=== PATIENT | male | born 1995 | race Caucasian/White ===

== ENCOUNTER 2022-05-16 14:17 | Emergency (ER) | payer OTHER, SELFPAY ==
[2022-05-16 14:23] VITALS: BP 130/85; PULSE 93; RESP 18; TEMP 36.7; O2SAT 97; BMI 43.0
--- NOTE | 2022-05-16 14:42 | ED.WOUNDLAC ---
HPI - Wound/Laceration General Chief Complaint: Wound/Laceration Stated Complaint: Infected middle finger Time Seen by Provider: 05/16/22 14:42 Source: patient Mode of arrival: ambulatory Limitations: no limitations History of Present Illness HPI narrative: Patient is a 26 year old male presenting to the emergency department today with left middle finger swelling. Patient states that yesterday, he pulled off a hang nail with his teeth and now, his left middle finger has swollen significantly. Patient denies any dizziness, lightheadedness, abdominal pain, nausea, vomiting, fever, chills, blurry vision, double vision, loss of vision, chest pain, difficulty breathing, shortness of breath, back pain, night sweats, pain with urination, increased urinary frequency, increased urinary urgency, blood in his urine or stool, syncope or a near syncopal episode, recent trauma or falls, bowel incontinence, bladder incontinence, bowel retention, bladder retention, or any other complaints at this time. Onset (ago): day(s) (1) Place: home Associated symptoms: none Related Data Previous Rx's Medication Instructions Recorded cephalexin 500 mg capsule 500 mg PO Q6H 7 days #28 caps 05/16/22 Allergies Allergy/AdvReac Type Severity Reaction Status Date / Time No Known Allergies Allergy Verified 05/16/22 14:22 [No Known Allergies*] Review of Systems Constitutional: Constitutional: Reports no additional constitutional complaints, Denies chills, Denies fever(s) and Denies night sweats Eyes: Eyes: Reports no additional eye complaints, Denies blurry vision, Denies change in vision, Denies diplopia, Denies eye discharge, Denies loss of vision and Denies eye pain ENT: Denies dizziness Cardiovascular: Cardiovascular: Reports no additional cardiovascular complaints, Denies chest pain, Denies lightheadedness, Denies Loss of Consciousness and Denies dyspnea Respiratory: Respiratory: Reports no additional respiratory complaints and Denies dyspnea Gastrointestinal: Gastrointestinal: Reports no additional gastrointestinal complaints, Denies abdominal pain, Denies melena, Denies hematochezia, Denies change in bowel habits and Denies change in stool character Genitourinary: Genitourinary: Reports no additional male genitourinary complaints, Denies hematuria, Denies oliguria, Denies difficulty urinating, Denies dysuria, Denies urinary frequency, Denies urinary hesitancy, Denies urinary incontinence and Denies urinary urgency Musculoskeletal: Musculoskeletal: Reports no additional musculoskeletal complaints, Denies numbness and Denies tingling Comments: left middle finger swelling Neurologic: Denies dizziness, Denies loss of vision, Denies numbness and Denies tingling Psychiatric: Psychiatric: Reports no additional psychiatric complaints Endocrine: Endocrine: Reports no additional endocrine complaints Hematologic/Lymphatic: Hematologic/Lymphatic: Reports no additional hematologic/lymphatic complaints Allergic/Immunologic: Allergic/Immunologic: Reports no additional allergic/immunologic complaints PMFSH Past Medical History Attestation statement: The following information was validated with the patient. Source: old records reviewed Social History Social History Advance Directives: No Advance Directives Information Provided: No Physical Exam Vital Signs: Vital Signs: Last Vital Signs Temp 98.1 F 05/16/22 14:23 Pulse 93 05/16/22 14:23 Resp 18 05/16/22 14:23 BP 130/85 05/16/22 14:23 Pulse Ox 97 05/16/22 14:23 O2 Del Method 05/16/22 14:23 BMI result Body Mass Index 43.0 Const: General: cooperative, no acute distress, alert and awake Nutritional Appearance: well nourished Orientation/consciousness: patient oriented x3 Limitations: no limitations HEENT: Head: Yes normal to inspection and Yes atraumatic Ears: hearing grossly normal bilaterally and external ears normal General nose exam: Normal external nose present, no nasal discharge noted and no epistaxis Face and sinus: Yes normal facial exam, No abrasion and No laceration Mouth: Normal oral and palatal mucosa present, no drooling and no muffled voice Eyes: General: appearance normal, both eyes and all related structures Periorbital: periorbital findings normal Eyelids: Yes eyelids normal Conjunctivae: conjunctivae normal Pupils: Equal, round and reactive pupils present EOM: EOMs intact bilaterally Neck: Neck: Yes normal visual inspection, Yes full ROM and Yes no lymphadenopathy Chest: Chest palpation & inspection: normal inspection of the chest Resp: Effort & Inspection: normal respiratory effort and able to speak in complete sentences Auscultation: clear to auscultation bilaterally Cardio: Rate: regular rate Rhythm: regular rhythm GI: Inspection: Yes normal to inspection Neuro: General: patient oriented x3 and moves all extremities Cranial nerves: Yes Equal, round and reactive pupils present Cognition (Neuro): normal cognition Motor exam (neuro): 5/5 motor strength present throughout Sensory Exam: Normal double simultaneous stimulation for sensation Coordination: ilevem-rj-eywy test normal Extrem: Other: left middle finger has minimal swelling to the dorsal aspect just inferior to the nail bed General: Yes full ROM and Yes capillary refill normal Psych: Appearance: grossly normal Mental Status: mental status grossly normal Affect: normal affect Attitude: cooperative Thought process: Normal thought process present Thought content: Normal thought content present Insight: Good insight present (Psych) MDM - Wound/Laceration MDM Narrative Medical decision making narrative: Patient is a 26 year old male presenting to the emergency department today with a paronychia of the left middle finger. Patient's physical exam showed a paronychia to the left middle finger.I explained my physical exam findings to the patient. I answered all questions asked by the patient. Patient's paronychia was drained, per procedure note, without incident. I stressed the importance of the patient taking his medication as prescribed. I stressed the importance of the patient following up with his primary care provider. I stressed the importance of the patient returning to the emergency department immediately if his symptoms were to worsen or if he were to develop any dizziness, shortness of breath, difficulty breathing, chest pain, blurry vision, loss of vision, nausea, vomiting, abdominal pain, fever, chills, back pain, or any other complaints. Patient verbalized agreement and understanding with this treatment plan and discharge. Differential Diagnosis Differential diagnosis: Likely abscess Medical Records Attestation: I reviewed the patient's medical records. Procedures Abscess I/D Site: other (middle finger) Side (if applicable): left Sedation/analgesia: none Local Anesthetic: lidocaine 1% Amount of anesthesia used (mL): 2 Technique: incised with blade Amount of fluid expressed (mL): 5 Sent for culture/gram staining?: No Irrigation: No Packing used?: none Discharge Plan Discharge Clinical Impression: Paronychia of finger Patient Disposition: Home, Self-Care Instructions: Paronychia (ED) Additional Instructions: Follow up with your primary care provider. Return to the emergency department immediately if your symptoms worsen or if you develop any dizziness, shortness of breath, difficulty breathing, chest pain, blurry vision, loss of vision, nausea, vomiting, abdominal pain, fever, chills, back pain, or any other complaints. Prescriptions: New cephalexin 500 mg capsule 500 mg PO Q6H 7 Days Qty: 28 0RF [place]: [facility] [facility] [place] (Call to establish and follow up with a primary care provider. If you already have a primary care provider, please call their office. ) [facility] [place] [facility] [place]Provider Group] (Call to establish and follow up with a primary care provider. If you already have a primary care provider, please call their office. ) [facility] [place] [facility] [place]] (Call to establish and follow up with a primary care provider. If you already have a primary care provider, please call their office. ) Stand Alone Forms: Work/School Release Interventions: ED Discharge Assessment Last Done: 05/16/22 15:29 Discharge Date/Time: 05/16/22 15:31 Print Language: Luxembourgish
[2022-05-16] MEDS: Lidocaine HCl 1 % MPF 5 ML VIAL SUBCUT (15:11)
== END 2022-05-16 15:31 | disposition home or self-care (01) ==
PROVIDERS: Emergency Provider Student in an Organized Health Care Education/Training Program
DX: L02.512 Cutaneous abscess of left hand (principal)
CPT/HCPCS: 10060; 99283

== ENCOUNTER 2024-11-01 23:00 | Emergency (ER) | payer MEDICAID, SELFPAY ==
--- NOTE | ~2024-11-01 | XR_ITS ---
CLINICAL HISTORY: sob cp 1 view chest x-ray. Comparison: 02/22/2018 Findings: Moderate-size left pleural effusion noted. Left basilar consolidation and/or atelectasis. Right lung clear. Heart obscured. No bony abnormality. Impression: Left pleural effusion with basilar consolidation and/or atelectasis This document has been electronically signed by: Bryn Ty MD on 11/01/2024 23:59:16
--- NOTE | ~2024-11-01 | CT_ITS ---
CLINICAL HISTORY: infection pleural effusion CT chest with contrast Comparison: None Findings: Moderate size loculated pleural effusion with large anteriorly loculated component. Consolidation in the adjacent lung involving the left upper and lower lobes. There is some patchy airspace disease in the right lung with multifocal right middle lobe bronchiectasis. Heart size normal. No pericardial effusion. No acute finding in the partially visualized upper abdomen. No acute fracture or suspicious bone lesion. IMPRESSION: 1. Left upper and left lower lobe pneumonia with adjacent loculated pleural effusion. No pleural enhancement to suggest empyema. This document has been electronically signed by: Dameon Rosado MD on 11/02/2024 01:42:16
[2024-11-01 23:04] VITALS: BP 154/99; PULSE 100; RESP 18; TEMP 36.7; O2SAT 95; BMI 42.1
--- NOTE | 2024-11-01 23:11 | ECG_ITS ---
Test Reason : SOB Blood Pressure : */* mmHG Vent. Rate : 105 BPM Atrial Rate : 105 BPM P-R Int : 150 ms QRS Dur : 90 ms QT Int : 370 ms P-R-T Axes : 52 39 28 degrees QTcB Int : 489 ms Sinus tachycardia Otherwise normal ECG No previous ECGs available Referred By: Generic ED Physician Electronically Signed By: JORGE WOLFF MD
[2024-11-01 23:42] LABS: Basophils Absolute Auto 0.1 X10*3/uL (0.0-0.2); Basophils Percent Auto 0.7 % (0-2); Eosinophils Absolute Auto 0.9 X10*3/uL (0.0-0.4); Hematocrit 38.4 % (42.0-52.0); Hemoglobin 12.6 g/dl (14.0-18.0); Imm Gran Abs Auto 0.05 X10*3/uL (0.00-0.03); Imm Gran Pct Auto 0.4 % (0.0-0.4); Lymphocytes Absolute Auto 1.6 X10*3/uL (1.2-4.9); Lymphocytes Percent Auto 11.6 % (20-40); MANUAL DIFF FLAG NO; Mean Corpuscular HGB Conc 32.8 g/dl (31.0-36.0); Mean Corpuscular Hemoglobin 27.5 pg (27.0-33.0); Mean Corpuscular Volume 83.8 fL (80.0-98.0); Mean Platelet Volume 9.1 fL (9.4-12.4); Monocytes Absolute Auto 0.8 X10*3/uL (0.1-1.2); Neutrophils Percent Auto 74.3 % (45-73); Platelet Count 415 X10*3/uL (160-400); Red Blood Count 4.58 X10*6/uL (4.60-5.80); Red Cell Distribution Width 13.3 % (11.0-16.0); White Blood Count 13.5 X10*3/uL (4.8-10.8)
[2024-11-02 00:01] LABS: Alanine Aminotransferase 20 U/L (0-40); Albumin Level 3.5 g/dL (3.5-5.0); Alkaline Phosphatase 81 U/L (39-117); Anion Gap 10 (12-20); Aspartate Amino Transferase 19 U/L (5-37); Bilirubin Total 0.2 mg/dL (0.0-1.0); Blood Urea Nitrogen 7 mg/dL (9-16); Calcium 8.2 mg/dL (8.4-10.2); Carbon Dioxide 24 mmol/L (22-29); Chloride 108 mmol/L (96-108); Creatinine Clr Calc Pharmacy 239.1; Estimated Glomerular Filt Rate > 60; Glucose Random 107 mg/dL (60-115); Sodium 138 mmol/L (135-145); Total Protein 8.1 g/dL (6.5-8.0)
[2024-11-02 00:04] LABS: Troponin-I High Sensitivity 4.4 ng/L (<3.5-35.0)
[2024-11-02] MEDS: Albuterol Sulfate 2.5 MG, Albuterol/Iprat 2.5/0.5MG 3 ML 3 ML INHALE (00:08)
[2024-11-02 00:19] LABS: Influenza A PCR NEGATIVE (Negative); Influenza B PCR NEGATIVE (Negative); Resp Syncy Virus RNA Qual PCR NEGATIVE (Negative); SARS COV2 PCR INHOUSE POSITIVE (Negative)
[2024-11-02 00:26] VITALS: PULSE 106
[2024-11-02] MEDS: predniSONE 20 MG TABLET 40 MG PO (00:38)
[2024-11-02] MEDS: iohexoL 350 MG/ML 100 ML INFUS..BTL 85 ML IV (01:28)
[2024-11-02 02:25] VITALS: BP 136/85; PULSE 98; RESP 16; TEMP 36.9; O2SAT 97
--- NOTE | 2024-11-02 02:36 | ED_ITS ---
HPI - General Adult General Chief complaint: Upper Respiratory Symptoms Stated complaint: Trouble breathing x3 days, Asthmatic Time Seen by Provider: 11/01/24 23:55 Source: patient Limitations: no limitations History of Present Illness ED Provider: Cony Raphael PA-C HPI narrative: 29-year-old male with a history of asthma presents with cough and cold symptoms x3 days. Patient states his cough is nonproductive, he has been using his home inhaler and nebulizer without relief of symptoms. Denies sick contacts with same symptoms, denies fever, no GI symptoms. Related Data Previous Rx's ?Medication ?Instructions ?Recorded cephalexin 500 mg capsule 500 mg PO Q6H 7 days #28 caps 05/16/22 albuterol sulfate 2.5 mg/3 mL 2.5 mg (3 mL) inhalation Q4-6H PRN 11/02/24 (0.083 %) solution for nebulization shortness of breath or wheezing #75 mL amoxicillin 875 mg-potassium 1 tab PO BID #20 tabs 11/02/24 clavulanate 125 mg tablet azithromycin 250 mg tablet 250 mg PO DAILY 4 days #4 tabs 11/02/24 prednisone 20 mg tablet 40 mg (2 x 20 mg) PO DAILY #8 tabs 11/02/24 Allergies Allergy/AdvReac Type Severity Reaction Status Date / Time No Known Allergies Allergy Verified 11/01/24 23:08 [No Known Allergies*] Review of Systems 2 Review of Systems: Yes all other systems are reviewed and are negative Constitutional: Constitutional: Denies fatigue and Denies fever(s) Cardiovascular: Cardiovascular: Denies chest pain and Reports dyspnea Respiratory: Respiratory: Reports cough, Reports dyspnea and Reports wheezing Gastrointestinal: Gastrointestinal: Denies diarrhea, Denies nausea and Denies vomiting Endocrine: Endocrine: Denies fatigue Allergic/Immunologic: Allergic/Immunologic: Reports wheezing PMFSH Past Medical History Attestation statement: The following information was validated with the patient. Social History Social History Alcohol intake: current Alcohol intake frequency: 3 or more drinks per day Alcohol type: beer, wine and hard liquor Smoked in Last 30 Days: Yes Use of substances other than those prescribed or required for medical reasons: Yes Substance Use Type: Marijuana Advance Directives: No Advance Directives Information Provided: Yes Do you have a plan to hurt others: No Plan Physical Exam ED Vital Signs: Vital Signs - 24 hr 11/01/24 23:04 11/02/24 02:25 11/02/24 03:47 Temperature 98.0 F 98.4 F 98.2 F Pulse Rate 100 98 97 Respiratory Rate 18 16 16 Blood Pressure 154/99 H 136/85 154/100 H Pulse Oximetry 95 97 94 Oxygen Delivery Method Room Air Room Air Room Air BMI result Body Mass Index 42.1 Const Other: Alert, well-appearing Orientation/consciousness: patient oriented x3 Resp Other: Slightly tachypneic, diminished in posterior kil[place]ore Skin Other: Warm dry no rash Neuro General: patient oriented x3, no focal motor deficits and CN's II-XI intact bilaterally Psych Other: Calm cooperative Course Reevaluation(s) Reevaluation #1: I discussed all the findings with the patient, that he has tested positive for SARS, he has a viral pneumonia and a bacterial pneumonia that is very extensive within the left lobe. I strongly suggested that he be admitted to the hospital. 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 He states he needs to get his affairs in order this morning and then he will return to the emergency department for admission. We will give the patient his 1st dose of antibiotics here in the ER, we will send prescriptions to his pharmacy in the event that he does not return. Time: 02:44 Medications Administered Discontinued Medications Generic Name Dose Route Start Last Admin Trade Name Pernell PRN Reason Stop Dose Admin Azithromycin 500 mg 11/02/24 02:44 11/02/24 03:17 Azithromycin 500 Mg Tablet PO 11/02/24 02:45 500 mg ONCE ONE Administration Ceftriaxone Sodium 2 gm 11/02/24 02:44 11/02/24 03:16 Ceftriaxone Sodium 2 Gm Vial IVPUSH 11/02/24 02:45 2 gm ONCE ONE Administration Albuterol Sulfate 2.5 mg/ 0 mg 11/02/24 00:01 11/02/24 00:08 Albuterol/Ipratropium 3 ml INHALE 11/02/24 00:02 1 dose ONCE ONE Administration Iohexol 85 ml 11/02/24 01:28 11/02/24 01:28 Iohexol 350 Mg/Ml 100 Ml Infus..Btl IV 11/02/24 01:29 85 ml ONCE ONE Administration Prednisone 40 mg 11/01/24 23:57 11/02/24 00:38 Prednisone 20 Mg Tablet PO 11/01/24 23:58 40 mg ONCE ONE Administration Medical Decision Making Medical Decision Making [facility] Narrative: 29-year-old male with a history of asthma presents with cough and cold symptoms x3 days. Patient states his cough is nonproductive, he has been using his home inhaler and nebulizer without relief of symptoms. Denies sick contacts with same symptoms, denies fever, no GI symptoms. Problem: Asthma History: Per patient I have considered the following differential diagnoses: Asthma exacerbation, viral syndrome, pneumonia, bronchitis Plan: Patient here with a asthma exacerbation likely secondary to viral syndrome. We will be screening basic labs, viral panel and a chest x-ray. Giving an updraft and steroid. I have independently reviewed the following tests: Labs: Leukocytosis with left shift, not anemic, no electrolyte abnormality, SARs positive CXR: Moderate-size left pleural effusion noted. Left basilar consolidation and/or atelectasis. Right lung clear. Heart obscured. No bony abnormality. Impression: Left pleural effusion with basilar consolidation and/or atelectasis This document has been electronically signed by: Bryn Ty MD on 11/01/2024 23:59:16 CT chest: Findings: Moderate size loculated pleural effusion with large anteriorly loculated component. Consolidation in the adjacent lung involving the left upper and lower lobes. There is some patchy airspace disease in the right lung with multifocal right middle lobe bronchiectasis. Heart size normal. No pericardial effusion. No acute finding in the partially visualized upper abdomen. No acute fracture or suspicious bone lesion. IMPRESSION: 1. Left upper and left lower lobe pneumonia with adjacent loculated pleural effusion. No pleural enhancement to suggest empyema. This document has been electronically signed by: Dameon Rosado MD on 11/02/2024 01:42:16 Lab Data 11/01/24 23:28 11/01/24 23:28 Labs: Lab Results 11/01/24 11/02/24 Range/Units 23:28 03:00 WBC 13.5 H (4.8-10.8) X10*3/uL RBC 4.58 L (4.60-5.80) X10*6/uL Hgb 12.6 L (14.0-18.0) g/dl Hct 38.4 L (42.0-52.0) % MCV 83.8 (80.0-98.0) fL MCH 27.5 (27.0-33.0) pg MCHC 32.8 (31.0-36.0) g/dl RDW 13.3 (11.0-16.0) % Plt Count 415 H (160-400) X10*3/uL MPV 9.1 L (9.4-12.4) fL Immature Gran % (Auto) 0.4 (0.0-0.4) % Neut % (Auto) 74.3 H (45-73) % Lymph % (Auto) 11.6 L (20-40) % [place] % (Auto) 6.0 (2-11) % Eos % (Auto) 7.0 H (0-4) % Baso % (Auto) 0.7 (0-2) % Lymph # (Auto) 1.6 (1.2-4.9) X10*3/uL [place] # (Auto) 0.8 (0.1-1.2) X10*3/uL Eos # (Auto) 0.9 H (0.0-0.4) X10*3/uL Baso # (Auto) 0.1 (0.0-0.2) X10*3/uL Abs Immat Gran (auto) 0.05 H (0.00-0.03) X10*3/uL Absolute Neuts (auto) 10.0 H (2.0-8.3) x10*3/uL Absolute Nucleated RBC 0.000 (0.0-0.012) X10*3/uL Nucleated RBC % (auto) 0.0 (0.0-0.2) /100WBC Sodium 138 (135-145) mmol/L Potassium 4.0 (3.3-5.1) mmol/L Chloride 108 (96-108) mmol/L Carbon Dioxide 24 (22-29) mmol/L Anion Gap 10 L (12-20) BUN 7 L (9-16) mg/dL Creatinine 0.62 (0.5-1.4) mg/dL Estim Creat Clear Calc 239.1 Estimated GFR > 60 Random Glucose 107 (60-115) mg/dL Lactic Acid 1.3 (0.5-2.0) mmol/L Calcium 8.2 L (8.4-10.2) mg/dL Total Bilirubin 0.2 (0.0-1.0) mg/dL AST 19 (5-37) U/L ALT 20 (0-40) U/L Alkaline Phosphatase 81 (39-117) U/L Troponin I High Sens 4.4 (<3.5-35.0) ng/L Total Protein 8.1 H (6.5-8.0) g/dL Albumin 3.5 (3.5-5.0) g/dL Influenza Type A (PCR) NEGATIVE (Negative) Influenza Type B (PCR) NEGATIVE (Negative) RSV RNA Qual (PCR) NEGATIVE (Negative) SARS-CoV-2 RNA (RT-PCR) POSITIVE A (Negative) Discharge Plan Discharge Clinical Impression: Pneumonia, Asthma exacerbation Patient Disposition: Home, Self-Care Instructions: Asthma (ED), Community Acquired Pneumonia (ED) Additional Instructions: It was highly recommended that you stay for hospital admission. Please return today once your personal affairs are in order. You are being treated for an asthma exacerbation with a viral pneumonia and a concurrent bacterial pneumonia. We will see you back in the emergency department later today. Take the Augmentin as directed. Take the azithromycin as directed. Take the prednisone as directed. Use the albuterol with your nebulizer as directed. Prescriptions: New amoxicillin-pot clavulanate 875-125 mg tablet 1 tab PO BID Qty: 20 0RF azithromycin 250 mg tablet 250 mg PO DAILY 4 Days Qty: 4 0RF Rx Instructions: start on day 2 of therapy prednisone 20 mg tablet 40 mg PO DAILY Qty: 8 0RF albuterol sulfate 2.5 mg /3 mL (0.083 %) solution for nebulization 2.5 mg inhalation Q4-6H PRN (Reason: shortness of breath or wheezing) Qty: 75 0RF No Action cephalexin 500 mg capsule 500 mg PO Q6H 7 Days Qty: 28 0RF Interventions: ED Discharge Assessment Last Done: 11/02/24 03:47 Discharge Date/Time: 11/02/24 03:54 Print Language: Georgian
[2024-11-02] MEDS: cefTRIAXone sodium 2 GM VIAL IVPUSH (03:16)
[2024-11-02] MEDS: Azithromycin 500 MG TABLET PO (03:17)
[2024-11-02 03:25] LABS: Lactic Acid 1.3 mmol/L (0.5-2.0)
[2024-11-02 03:47] VITALS: BP 154/100; PULSE 97; RESP 16; TEMP 36.8; O2SAT 94
== END 2024-11-02 03:54 | disposition home or self-care (01) ==
PROVIDERS: Physician Assistant Medical; Emergency Provider Emergency Medicine Emergency Medical Services
DX: U07.1 COVID-19 (principal); J45.909 Unspecified asthma, uncomplicated
CPT/HCPCS: 0241U; 36415; 71045; 71260; 80053; 83605; 84484; 85025; 87040; 93005; 96374; 99285; J0696; Q9967

== ENCOUNTER → 2024-11-01 23:10 | Outpatient (BNV) | payer OTHER, SELFPAY | PROVIDERS: Emergency Provider Emergency Medicine Emergency Medical Services; Visit Provider Radiology Diagnostic Radiology | DX: J90 Pleural effusion, not elsewhere classified (principal) | CPT/HCPCS: 71045 ==

== ENCOUNTER → 2024-11-01 23:11 | Outpatient (BNV) | payer MEDICAID, SELFPAY | PROVIDERS: Emergency Provider Emergency Medicine Emergency Medical Services; Visit Provider Internal Medicine Cardiovascular Disease | DX: R00.0 Tachycardia, unspecified (principal) | CPT/HCPCS: 93010 ==

== ENCOUNTER → 2024-11-02 00:56 | Outpatient (BNV) | payer OTHER, SELFPAY | PROVIDERS: Emergency Provider Emergency Medicine Emergency Medical Services; Visit Provider Radiology Diagnostic Radiology | DX: J18.1 Lobar pneumonia, unspecified organism (principal); J90 Pleural effusion, not elsewhere classified | CPT/HCPCS: 71260 ==

== ENCOUNTER 2024-11-02 22:59 | Inpatient (IN) | payer MEDICAID, SELFPAY ==
--- NOTE | ~2024-11-02 | XR_ITS ---
EXAMINATION: XR CHEST CLINICAL INFORMATION: f/u chest tube removal COMPARISON: Earlier same day. 11/05/2024. TECHNIQUE: AP portable view of the chest was obtained. FINDINGS: Left basilar pleural catheter has been removed. Small amount of left basilar linear opacity and pleural fluid remains, similar to exam from earlier same day, but smaller than 11/05/2024. Mildly prominent interstitial markings are stable and unchanged. Azygos fissure present. No right effusion. No pneumothorax. Cardiac prominence, unchanged. Mediastinal and hilar contours are stable. No soft tissue or osseous abnormality. XR/XR chest 1V IMPRESSION: 1. Removal of left basilar pleural catheter. Small amount of residual fluid and atelectasis remains. No pneumothorax. 2. Otherwise no interval change. Electronically signed by: Waldo Marrero MD 11/06/2024 02:35 PM [facility]
--- NOTE | ~2024-11-02 | XR_ITS ---
CLINICAL HISTORY: f u left pleural effusion 1 view chest x-ray Comparison: CR/SR - XR CHEST 1V - 11/05/24 13:10 EST Findings: Left basilar pigtail chest tube is again identified. Cardiac silhouette is mildly enlarged. Interstitial markings are diffusely prominent. Left basilar consolidation is improved compared to the patient's prior study. Left pleural effusion is decreased in size. No pneumothorax. IMPRESSION: Improved aeration of the left lung with chest tube in place. This document has been electronically signed by: Nathan Loco MD on 11/06/2024 07:48:44
--- NOTE | ~2024-11-02 | CT_ITS ---
EXAMINATION: CT ANGIOGRAM CHEST CLINICAL INFORMATION: Dyspnea, rule out PE. COMPARISON: CT chest 11/02/2024. Chest x-ray 11/06/2024. TECHNIQUE: Multiple axial images were obtained through the chest after the administration of 50 mL of Omnipaque 350 intravenous contrast. Extensive vascular post-processing including two-dimensional and three-dimensional reformatted images were created and reviewed on an independent workstation. This CT examination was performed using dose optimization techniques as appropriate, variously including the following: *Automated exposure control *Adjustment of mA and/or kV according to patient size (this includes techniques or standardized protocols for targeted exams where dose is matched to indication/reason for exam; i.e. extremities or head) *Use of iterative reconstruction technique FINDINGS: LUNGS: -Trace pneumothorax seen just lateral to the lingula. -Diffuse mosaic attenuation of the l lung parenchyma, nonspecific. -Cystic and varicoid bronchiectasis throughout the right middle lobe, with associated mild bronchial wall thickening. This finding is stable. -Mild bronchiectasis and bronchial wall thickening involving the lingula and bilateral lower lobes. -Azygos lobe present. -Linear atelectasis/segmental consolidation posterior inferior left lower lobe, with evidence of small airway mucous plugging. -Tiny left pleural effusion. No right effusion. -No right-sided pneumothorax. PLEURA: As above. MEDIASTINUM: -Mild cardiac enlargement. No pericardial effusion. No evidence of right heart strain and no contrast reflux into the IVC. -No abnormal mediastinal or hilar lymphadenopathy. -Normal thyroid. -Aorta is normal in caliber and course without acute aortic syndrome. -Main pulmonary artery is normal in size without dilatation. -Negative for pulmonary embolic disease. VASCULAR: As above. AXILLA/CHEST WALL: -No masses or abnormal lymph nodes. UPPER ABDOMEN: -Normal appearance. OSSEOUS STRUCTURES: -No suspicious lytic or blastic bone lesions. -Mild right convex thoracic scoliosis. CT/CT angio chest PE protocol IMPRESSION: 1. Exam negative for pulmonary embolism. No acute aortic syndrome. 2. Segmental consolidation left base, with associated small airway mucous plugging, and a trace left effusion. 3. Trace pneumothorax seen just lateral to the lingula. 4. Mosaic attenuation to the lung parenchyma, worsening from the prior exam, most likely on the basis of underlying air trapping. Differential includes diffuse lung injury, constrictive (obliterative) bronchiolitis, hypersensitivity pneumonitis, as well as less commonly bronchial asthma and vasculitis. 5. Cystic and varicoid bronchiectasis throughout the right middle lobe, unchanged. Mild small airway thickening and bronchiectasis in the lower lobes and lingula. 6. Mild cardiac enlargement. Electronically signed by: Waldo Marrero MD 11/07/2024 10:43 AM [facility]
--- NOTE | ~2024-11-02 | US_ITS ---
PROCEDURE: Ultrasound-guided chest tube placement HISTORY: Left loculated pleural effusion SPECIMEN: A specimen was appropriately labeled and sent to the laboratory as requested ACCESS: 5 fr Yueh needle/catheter MEDICATIONS: 10 mL 1% lidocaine TECHNIQUE/FINDINGS Appropriate preprocedural clinical history and imaging studies were reviewed. The patient was brought to the department and placed in the seated position. Ultrasound images of the left thorax were obtained to localize a large pleural effusion. Permanent ultrasound images were saved. The risks and benefits and possible complications were discussed with the patient and consent form was signed. An area of the patient's left back was prepped and draped in the usual sterile fashion. 10 mL of 1% lidocaine was used to obtain local anesthesia of the skin and deeper tissues. A 5 gauge hypodermic needle was introduced to sample pleural fluid and demonstrate a safe access route. A 5 [place] Island[place] Yueh catheter was then used to access the pleural cavity. A 0.035 guidewire was then placed through the catheter and into the chest. The access site was then dilated. A 10 fr locking catheter was then advanced over the wire and into the chest cavity. The wire was removed and the catheter was secured to the skin with a single suture and a sterile dressing was applied over the site. The catheter was then connected to a close chest drainage system. The patient tolerated the procedure well. There were no immediate complications US/US drain thoracentesis w image Impression: Ultrasound-guided left chest tube placement yielding yellow fluid. This procedures performed by Tyler Jacobo PA-C and supervised by Dr. Damon. Electronically signed by: Cruz Degroot MD 11/08/2024 06:07 PM [facility]
--- NOTE | ~2024-11-02 | XR_ITS ---
EXAMINATION: XR CHEST 1 VIEW HISTORY: s/p left chest tube for loculated pleural effusion COMPARISON: Comparison is made with the prior examination dated 11/01/2024. FINDINGS: A single AP portable view of the chest performed at 1:10 PM is submitted. There is been interval placement of a left-sided chest tube at the lung base. The previously seen pleural effusion is smaller. No pneumothorax. It is difficult to exclude underlying atelectasis or pneumonia at the left lung base. The right lung is clear. There is no right pleural effusion or pulmonary vascular congestion. The heart is normal in size. The bones are intact. XR/XR chest 1V IMPRESSION: Left chest tube in place. Interval decrease in size of the previously seen left pleural effusion. No pneumothorax. Electronically signed by: Loc Silva MD 11/05/2024 01:58 PM [facility]
[2024-11-02 23:25] VITALS: BP 151/75; PULSE 95; RESP 22; TEMP 36.7; O2SAT 95; BMI 42.2
[2024-11-03] VITALS (10 sets, daily range): BP systolic 146–162; BP diastolic 78–108; PULSE 84–118; RESP 17–30; TEMP 36.1–37.7; O2SAT 90–98
--- NOTE | 2024-11-03 01:08 | ED.GENADULT ---
HPI - General Adult General Chief complaint: Upper Respiratory Symptoms Stated complaint: asthma-was here yesterday Time Seen by Provider: 11/03/24 01:09 Source: patient Limitations: no limitations History of Present Illness ED Provider: Cony Raphael PA-C HPI narrative: 29-year-old male with a history of asthma presents with cough and cold symptoms x 4 days. Patient was seen in the emergency department overnight yesterday, he was found to have a viral pneumonia secondary to SARS, a large, left sided bacterial pneumonia and was being treated for concurrent asthma exacerbation. 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 Related Data Previous Rx's ?Medication ?Instructions ?Recorded cephalexin 500 mg capsule 500 mg PO Q6H 7 days #28 caps 05/16/22 albuterol sulfate 2.5 mg/3 mL 2.5 mg (3 mL) inhalation Q4-6H PRN 11/02/24 (0.083 %) solution for nebulization shortness of breath or wheezing #75 mL amoxicillin 875 mg-potassium 1 tab PO BID #20 tabs 11/02/24 clavulanate 125 mg tablet azithromycin 250 mg tablet 250 mg PO DAILY 4 days #4 tabs 11/02/24 prednisone 20 mg tablet 40 mg (2 x 20 mg) PO DAILY #8 tabs 11/02/24 Allergies Allergy/AdvReac Type Severity Reaction Status Date / Time No Known Allergies Allergy Verified 11/02/24 23:29 [No Known Allergies*] Review of Systems Review of Systems: Yes all other systems are reviewed and are negative Constitutional: Constitutional: Reports fatigue and Reports fever(s) Cardiovascular: Cardiovascular: Denies chest pain, Reports dyspnea and Reports dyspnea on exertion Respiratory: Respiratory: Reports cough, Reports dyspnea, Reports dyspnea on exertion and Reports wheezing Gastrointestinal: Gastrointestinal: Denies diarrhea, Denies nausea and Denies vomiting Endocrine: Endocrine: Reports fatigue Allergic/Immunologic: Allergic/Immunologic: Reports wheezing PMFSH Past Medical History Attestation statement: The following information was validated with the patient. Social History Social History Alcohol intake: current Alcohol intake frequency: 3 or more drinks per day Alcohol type: beer, wine and hard liquor Substance Use Type: Marijuana Advance Directives: No Advance Directives Information Provided: Yes Do you have a plan to hurt others: No Plan Physical Exam ED Vital Signs: Vital Signs - 24 hr 11/02/24 23:25 Temperature 98.1 F Pulse Rate 95 Respiratory Rate 22 H Blood Pressure 151/75 H Pulse Oximetry 95 Oxygen Delivery Method Room Air BMI result Body Mass Index 42.2 Const Other: Alert Orientation/consciousness: patient oriented x3 Resp Other: Tachypneic, diminished left posterior kilgore, audible wheezes when ambulating Cardio Other: Normal peripheral perfusion Skin Other: Warm dry no rash Neuro General: patient oriented x3, gait normal, no focal motor deficits and CN's II-XI intact bilaterally Psych Other: Cooperative Course Reevaluation(s) Reevaluation #1: Sepsis considered, the patient was here yesterday blood cultures and a lactic acid were obtained, I am not repeating the blood cultures, that does not make any sense, I am repeating the lactic acid was screening labs. He will be getting ceftriaxone and azithromycin for his already known pneumonia. He is normotensive, he does not require weight based IV fluids, we will be giving 500 mL of fluid. Time: 01:38 Medical Decision Making Medical Decision Making [facility] Narrative: 29-year-old male with a history of asthma presents with cough and cold symptoms x 4 days. Patient was seen in the emergency department overnight yesterday, he was found to have a viral pneumonia secondary to SARS, a large, left sided bacterial pneumonia and was being treated for concurrent asthma exacerbation. 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 Problem: Asthma History: Per patient I have considered the following differential diagnoses: known from yesterday Asthma exacerbation, viral syndrome, pneumonia, Plan: Patient returns for admission, he has a viral pneumonia, a large bacterial pneumonia on the left and is positive for SARS. He dropped his oxygen saturation with ambulation, he became profoundly tachypneic and tachycardic with minimal ambulation. Repeating basic labs and a lactic, we have blood cultures in process from yesterday. Starting antibiotics, Giving an updraft and steroid. I have independently reviewed the following tests: Labs: Leukocytosis with left shift, not anemic, no electrolyte abnormality, SARs positive, todays labs..... from yesterday CXR: Moderate-size left pleural effusion noted. Left basilar consolidation and/or atelectasis. Right lung clear. Heart obscured. No bony abnormality. Impression: Left pleural effusion with basilar consolidation and/or atelectasis This document has been electronically signed by: Bryn Ty MD on 11/01/2024 23:59:[address] chest: Findings: Moderate size loculated pleural effusion with large anteriorly loculated component. Consolidation in the adjacent lung involving the left upper and lower lobes. There is some patchy airspace disease in the right lung with multifocal right middle lobe bronchiectasis. Heart size normal. No pericardial effusion. No acute finding in the partially visualized upper abdomen. No acute fracture or suspicious bone lesion. IMPRESSION: 1. Left upper and left lower lobe pneumonia with adjacent loculated pleural effusion. No pleural enhancement to suggest empyema. This document has been electronically signed by: Dameon Rosado MD on 11/02/2024 01:42:16 Discharge Plan Discharge Clinical Impression: Asthma exacerbation, Pneumonia, SARS pneumonia, Hypoxia Patient Disposition: Admitted As Inpatient Print Language: Tunisian
--- NOTE | 2024-11-03 01:21 | MHC.EDTECH ---
Ambulated around ED with Pt with O2 probe on finger. O2 ranged 90-93%, Pt HR 118 and Pt c/o shortness of breath. Pts RR was 30. SHYAM Morgan aware.
[2024-11-03] MEDS: Albuterol Sulfate 5 MG, Albuterol Sulfate (0.083%) 2.5 MG 7.5 MG INHALE (01:30)
[2024-11-03 01:38] LABS: MANUAL DIFF FLAG NO
[2024-11-03 01:39] LABS: Basophils Absolute Auto 0.1 X10*3/uL (0.0-0.2); Basophils Percent Auto 0.8 % (0-2); Eosinophils Absolute Auto 0.6 X10*3/uL (0.0-0.4); Eosinophils Percent Auto 4.2 % (0-4); Hematocrit 36.4 % (42.0-52.0); Imm Gran Abs Auto 0.04 X10*3/uL (0.00-0.03); Imm Gran Pct Auto 0.3 % (0.0-0.4); Lymphocytes Absolute Auto 2.2 X10*3/uL (1.2-4.9); Lymphocytes Percent Auto 16.1 % (20-40); Mean Corpuscular Hemoglobin 27.6 pg (27.0-33.0); Mean Corpuscular Volume 83.9 fL (80.0-98.0); Mean Platelet Volume 8.9 fL (9.4-12.4); Monocytes Absolute Auto 1.1 X10*3/uL (0.1-1.2); Monocytes Percent Auto 7.8 % (2-11); Neutrophils Absolute Auto 9.6 x10*3/uL (2.0-8.3); Neutrophils Percent Auto 70.8 % (45-73); Platelet Count 413 X10*3/uL (160-400); Red Blood Count 4.34 X10*6/uL (4.60-5.80); Red Cell Distribution Width 13.5 % (11.0-16.0); White Blood Count 13.6 X10*3/uL (4.8-10.8)
[2024-11-03] MEDS: methylPREDNISolone Sod Succ 125 MG/2 ML VIAL IVPUSH (01:41)
[2024-11-03] MEDS: 0.9 % Sodium Chloride 500 ML IV (01:48)
[2024-11-03] MEDS: cefTRIAXone sodium 2 GM VIAL IVPUSH (01:48)
[2024-11-03 01:55] LABS: Anion Gap 12 (12-20); Blood Urea Nitrogen 12 mg/dL (9-16); Calcium 9.1 mg/dL (8.4-10.2); Carbon Dioxide 26 mmol/L (22-29); Chloride 108 mmol/L (96-108); Creatinine Clr Calc Pharmacy 192.7; Estimated Glomerular Filt Rate > 60; Glucose Random 114 mg/dL (60-115); Potassium 3.9 mmol/L (3.3-5.1); Sodium 142 mmol/L (135-145)
[2024-11-03 01:57] LABS: Lactic Acid 1.3 mmol/L (0.5-2.0)
[2024-11-03] MEDS: Acetaminophen 1,000 MG/100 ML PIGGYBACK 400 MG IV (01:59)
--- NOTE | 2024-11-03 01:59 | P.HPHOSP_ITS ---
History of Present Illness Date of Service: 11/03/24 Chief Complaint: Dyspnea This is a 29-year-old male with pertinent history of asthma not on home oxygen who presents to the emergency department for evaluation of dyspnea and cough. Patient states his symptoms started 4 days prior to presentation. He has been having productive cough with yellowish sputum production. Also has been having dyspnea which is worse with exertion. Has associated wheezing not relieved with home inhalers. No sick contacts. Does have left-sided pleuritic chest discomfort. No fever, chills, palpitations, abdominal pain, changes in urinary or bowel habits. In the emergency department, imaging with left-sided pneumonia with loculated pleural effusion. Also found to be septic with tachycardia, tachypnea and leukocytosis. Tested positive for COVID-19 infection Review of Systems 2 Constitutional: Constitutional: Reports fatigue, Reports malaise and Reports poor appetite Cardiovascular: Cardiovascular: Reports dyspnea on exertion Respiratory: Respiratory: Reports cough, Reports dyspnea on exertion and Reports wheezing Gastrointestinal: Gastrointestinal: Reports no additional gastrointestinal complaints Genitourinary: Genitourinary: Reports no additional male genitourinary complaints Endocrine: Endocrine: Reports fatigue Allergic/Immunologic: Allergic/Immunologic: Reports wheezing PMFSH Pertinent family history: No family history of early CAD Social History Alcohol intake: current Alcohol intake frequency: 3 or more drinks per day Alcohol type: beer, wine and hard liquor Smoked in Last 30 Days: No Use of substances other than those prescribed or required for medical reasons: Yes Substance Use Type: Marijuana Substance Use Frequency: Daily Advance Directives: No Advance Directives Information Provided: Yes Do you have a plan to hurt others: No Plan Meds Allergies Allergy/AdvReac Type Severity Reaction Status Date / Time No Known Allergies Allergy Verified 11/02/24 23:29 [No Known Allergies*] Active Medications: Current Medications Azithromycin 500 mg/ Sodium (Chloride) 250 mls @ 125 mls/hr IV ONCE ONE Stop: 11/03/24 03:08 Sodium Chloride (Ns) 500 mls @ 500 mls/hr IV .Q1H ONE Stop: 11/03/24 02:33 Last Admin: 11/03/24 01:48 Dose: 500 mls/hr Ampicillin Sodium/Sulbactam (Sodium 3 gm/ Sodium Chloride) 100 mls @ 200 mls/hr IV Q6H [facility] Physical Exam 2 Vital Signs and Narrative: Vital Signs: Last Vital Signs Temp 99.8 F 11/03/24 01:22 Pulse 118 H 11/03/24 01:22 Resp 18 11/03/24 01:31 BP 151/75 H 11/02/24 23:25 Pulse Ox 96 11/03/24 01:51 O2 Del Method Room Air 11/03/24 01:51 BMI result Body Mass Index 42.2 Middle-aged male lying in bed in mild distress Neck supple, no JVD Regular rate and rhythm, S1-S2 heard Left-sided crackles with wheezing Abdomen soft nontender, no guarding, no rigidity Patient is awake, alert and oriented to self, place, time and person ; no focal motor deficit Psych: Normal mood No pedal edema Results Labs 11/03/24 01:34 11/03/24 01:34 Labs: Laboratory Results - last 24 hr 11/03/24 01:34 MCV 83.9 MCH 27.6 MCHC 33.0 RDW 13.5 Plt Count 413 H MPV 8.9 L Immature Gran % (Auto) 0.3 Neut % (Auto) 70.8 Lymph % (Auto) 16.1 L Mccone % (Auto) 7.8 Eos % (Auto) 4.2 H Baso % (Auto) 0.8 Lymph # (Auto) 2.2 [place] # (Auto) 1.1 Eos # (Auto) 0.6 H Baso # (Auto) 0.1 Abs Immat Gran (auto) 0.04 H Absolute Neuts (auto) 9.6 H Absolute Nucleated RBC 0.000 Nucleated RBC % (auto) 0.0 Anion Gap 12 Estim Creat Clear Calc 192.7 Estimated GFR > 60 Random Glucose 114 Lactic Acid 1.3 Calcium 9.1 D Assessment and Plan (1) Sepsis: Status: Acute (2) Asthma exacerbation: Status: Acute (3) Pneumonia: Status: Acute (4) Pleural effusion, left: Status: Acute Plan This is a 29-year-old male with pertinent history of asthma not on home oxygen who presents to the emergency department for evaluation of dyspnea and cough #. Sepsis due to left-sided pneumonia with loculated pleural effusion: Will admit patient with IV Unasyn. Consulting thoracic surgery for possible thoracentesis in the setting of complicated pleural effusion. Sputum culture pending. Lactic acid and blood culture obtained. Resuscitated with IV crystalloids #. Acute exacerbation of asthma in the setting of above and COVID-19 infection: Scheduled and p.r.n. DuoNebs. Continue home inhaler. Initiating systemic steroids #. Obesity: Weight loss encouraged Med rec pending DVT prophylaxis: Defer Lovenox for possible thoracentesis Full code Admit as inpatient and will require two night minimum hospital stay for IV antibiotics (as above), which is not possible in a lesser acute setting. Quality Stroke Does the patient have a stroke diagnosis?: No VTE Prior VTE?: No VTE Risk Level:: Medical - moderate - high VTE Device Contraindication: Treatment Not Indicated VTE Drug Contraindication: N/A - Med Ordered
[2024-11-03] MEDS: Azithromycin 500 MG in 0.9 % Sodium Chloride 250 ML 125 MG IV (02:21)
[2024-11-03] MEDS: Ampicillin Sodium/Sulbactam Na 3 GM in 0.9 % Sodium Chloride 100 ML IV ×4 (04:23→20:41)
[2024-11-03 05:11] LABS: Basophils Absolute Auto 0.1 X10*3/uL (0.0-0.2); Basophils Percent Auto 0.4 % (0-2); Eosinophils Absolute Auto 0.1 X10*3/uL (0.0-0.4); Eosinophils Percent Auto 0.4 % (0-4); Hematocrit 37.2 % (42.0-52.0); Imm Gran Abs Auto 0.09 X10*3/uL (0.00-0.03); Imm Gran Pct Auto 0.6 % (0.0-0.4); Lymphocytes Absolute Auto 0.5 X10*3/uL (1.2-4.9); Lymphocytes Percent Auto 3.4 % (20-40); MANUAL DIFF FLAG SCAN; Mean Corpuscular HGB Conc 32.3 g/dl (31.0-36.0); Mean Corpuscular Hemoglobin 27.5 pg (27.0-33.0); Mean Corpuscular Volume 85.1 fL (80.0-98.0); Mean Platelet Volume 9.4 fL (9.4-12.4); Monocytes Absolute Auto 0.2 X10*3/uL (0.1-1.2); Monocytes Percent Auto 1.4 % (2-11); Neutrophils Absolute Auto 14.4 x10*3/uL (2.0-8.3); Neutrophils Percent Auto 93.8 % (45-73); Platelet Count 389 X10*3/uL (160-400); Red Blood Count 4.37 X10*6/uL (4.60-5.80); Red Cell Distribution Width 13.6 % (11.0-16.0); SCAN SMEAR FLAG 1; White Blood Count 15.3 X10*3/uL (4.8-10.8)
[2024-11-03 05:27] LABS: Anion Gap 13 (12-20); Blood Urea Nitrogen 12 mg/dL (9-16); Calcium 8.6 mg/dL (8.4-10.2); Carbon Dioxide 24 mmol/L (22-29); Chloride 108 mmol/L (96-108); Estimated Glomerular Filt Rate > 60; Glucose Random 113 mg/dL (60-115); Potassium 3.9 mmol/L (3.3-5.1); Sodium 141 mmol/L (135-145)
[2024-11-03 05:28] LABS: SLIDE REVIEW VERIFIED
--- NOTE | 2024-11-03 06:42 | PC.NURSE ---
according to hospitalist report pt is septic. blood cultures were obtained the day prior 11/02/24 @0300, not for this admission per ED provider. sepsis fluids not ordered, only 500mls, per ED provider report. sepsis protocol was not called in ED, lactic WNL.
[2024-11-03] MEDS: Albuterol/Iprat 2.5/0.5MG 3 ML AMPUL.NEB INHALE ×3 (07:30→19:48)
[2024-11-03] MEDS: 0.9 % Sodium Chloride Flush 3 ML SYRINGE IVFLUSH ×2 (08:31→20:40)
--- NOTE | 2024-11-03 08:52 | PC.NURSE ---
Awaiting 09:00 Dexamethasone per pharmacy at this time.
--- NOTE | 2024-11-03 09:40 | P.PNIM_ITS ---
Subjective Subjective Date of Service: 11/03/24 Review of Systems Follow-up pneumonia Pleural effusion Physical Exam 2 Vital Signs: Vital Signs: Last Vital Signs Temp 98.7 F 11/03/24 06:36 Pulse 84 11/03/24 07:30 Resp 18 11/03/24 07:30 BP 146/85 H 11/03/24 06:36 Pulse Ox 97 11/03/24 06:36 O2 Del Method Room Air 11/03/24 06:36 BMI result Body Mass Index 42.2 Appearing in no acute distress lung sounds heart regular rate rhythm, clear S1, S2 positive bowel sounds, abdomen is soft, nontender neuro patient is alert x3, no focal deficits Objective Data Active Medications Acetaminophen (Acetaminophen 325 Mg Tablet) 650 mg PO Q6H PRN PRN Reason: Pain, Mild 1-3,fever,headache Albuterol/Ipratropium (Albuterol/Iprat 2.5/0.5mg 3 Ml Ampul.Neb) 3 ml INHALE Q4H PRN PRN Reason: Shortness of Breath/Wheezing Albuterol/Ipratropium (Albuterol/Iprat 2.5/0.5mg 3 Ml Ampul.Neb) 3 ml INHALE RQ4H WHILE AWAKE [facility] Last Admin: 11/03/24 07:30 Dose: 3 ml Documented By: TAMMI Benzonatate (Benzonatate 100 Mg Capsule) 100 mg PO TID PRN PRN Reason: Cough Calcium Carbonate (Calcium Carbonate 750 Mg Tab.Chew) 750 mg PO Q4H PRN PRN Reason: Heartburn Dexamethasone (Dexamethasone 6 Mg Tablet) 6 mg PO DAILY [facility] Ampicillin Sodium/Sulbactam (Sodium 3 gm/ Sodium Chloride) 100 mls @ 200 mls/hr IV Q6H [facility] Last Admin: 11/03/24 08:30 Dose: 200 mls/hr Documented By: RENA Magnesium Hydroxide (Milk Of Magnesia 30 Ml Oral.Susp) 30 ml PO DAILY PRN PRN Reason: Constipation Melatonin (Melatonin 3 Mg Tablet) 6 mg PO BEDTIME PRN PRN Reason: Insomnia Ondansetron HCl (Ondansetron Hcl 4 Mg/2 Ml Vial) 4 mg IVPUSH Q8H PRN PRN Reason: Nausea and Vomiting Sodium Chloride (0.9 % Sodium Chloride Flush 3 Ml Syringe) 3 ml IVFLUSH QSHIFT [facility] Last Admin: 11/03/24 08:31 Dose: 3 ml Documented By: RENA Labs 11/03/24 04:42 11/03/24 04:42 Labs: Laboratory Results - last 24 hr 11/03/24 11/03/24 01:34 04:42 MCV 83.9 85.1 MCH 27.6 27.5 MCHC 33.0 32.3 RDW 13.5 13.6 Plt Count 413 H 389 MPV 8.9 L 9.4 Immature Gran % (Auto) 0.3 0.6 H Neut % (Auto) 70.8 93.8 H Lymph % (Auto) 16.1 L 3.4 L [place] % (Auto) 7.8 1.4 L Eos % (Auto) 4.2 H 0.4 Baso % (Auto) 0.8 0.4 Lymph # (Auto) 2.2 0.5 L [place] # (Auto) 1.1 0.2 Eos # (Auto) 0.6 H 0.1 Baso # (Auto) 0.1 0.1 Abs Immat Gran (auto) 0.04 H 0.09 H Absolute Neuts (auto) 9.6 H 14.4 H Absolute Nucleated RBC 0.000 0.000 Nucleated RBC % (auto) 0.0 0.0 Smear Tech's Comments VERIFIED Anion Gap 12 13 Estim Creat Clear Calc 192.7 212.0 Estimated GFR > 60 > 60 Random Glucose 114 113 Lactic Acid 1.3 Calcium 9.1 D 8.6 Assessment and Plan (1) Asthma exacerbation: Status: Acute (2) Pleural effusion, left: Status: Acute Plan This is a 29-year-old male with pertinent history of asthma not on home oxygen who presents to the emergency department for evaluation of dyspnea and cough Sepsis due to left-sided pneumonia with loculated pleural effusion IV Unasyn. Consulting thoracic surgery for possible thoracentesis in the setting of complicated pleural effusion. Sputum culture pending. Lactic acid and blood culture obtained. Resuscitated with IV crystalloids Acute exacerbation of asthma in the setting of above and COVID-19 infection Scheduled and p.r.n. DuoNebs. Continue home inhaler. Initiating systemic steroids Morbid Obesity Weight loss encouraged DVT prophylaxis: Defer Lovenox for possible thoracentesis Full code Admit as inpatient and will require two night minimum hospital stay for IV antibiotics (as above), which is not possible in a lesser acute setting. Quality Stroke Does the patient have a stroke diagnosis?: No VTE Prior VTE?: No VTE Risk Level:: Medical - moderate - high VTE Device Contraindication: Treatment Not Indicated VTE Drug Contraindication: N/A - Med Ordered
[2024-11-03] MEDS: dexAMETHasone 6 MG TABLET PO (09:41)
--- NOTE | 2024-11-03 10:10 | PHA.MEDREC ---
Addendum entered by Nessa Velazquez RPh 11/03/24 11:21: reviewed by [facility] Original Note: Pharmacy Consult ? Medication Reconciliation Pharmacy has completed the medication reconciliation. Spoke with patient to confirm. He uses no OTC.
--- NOTE | 2024-11-03 14:15 | HO.THORCON_ITS ---
History of Present Illness Consult details Consult date: 11/03/24 Narrative: Patient is undergoing thoracic surgery consultation because of a loculated left pleural effusion and left lower lobe pneumonia. Concern for possible early empyema. Patient was been sick for several days time complaining of cough, pleuritic chest pain, and dyspnea. He has never been sick like this before. He is relatively healthy man who works regularly and is fairly active. Chart was reviewed and patient evaluated. \ history of asthma. Patient apparently tested positive for COVID on this admission [facility] Social History Social History Alcohol intake: current Alcohol intake frequency: 3 or more drinks per day Alcohol type: beer, wine and hard liquor Patient Tobacco Use Status: Former Tobacco user Smoked in Last 30 Days: No Use of substances other than those prescribed or required for medical reasons: Yes Substance Use Type: Marijuana Substance Use Frequency: Daily Advance Directives: No Advance Directives Information Provided: Yes Do you have a plan to hurt others: No Plan Nutrition Risks: No Nutritional Risk Meds Allergies Allergy/AdvReac Type Severity Reaction Status Date / Time No Known Allergies Allergy Verified 11/02/24 23:29 [No Known Allergies*] Active Medications: Current Medications Acetaminophen (Acetaminophen 325 Mg Tablet) 650 mg PO Q6H PRN PRN Reason: Pain, Mild 1-3,fever,headache Albuterol/Ipratropium (Albuterol/Iprat 2.5/0.5mg 3 Ml Ampul.Neb) 3 ml INHALE Q4H PRN PRN Reason: Shortness of Breath/Wheezing Albuterol/Ipratropium (Albuterol/Iprat 2.5/0.5mg 3 Ml Ampul.Neb) 3 ml INHALE RQ4H WHILE AWAKE [facility] Last Admin: 11/03/24 11:12 Dose: Not Given Benzonatate (Benzonatate 100 Mg Capsule) 100 mg PO TID PRN PRN Reason: Cough Calcium Carbonate (Calcium Carbonate 750 Mg Tab.Chew) 750 mg PO Q4H PRN PRN Reason: Heartburn Dexamethasone (Dexamethasone 6 Mg Tablet) 6 mg PO DAILY [facility] Last Admin: 11/03/24 09:41 Dose: 6 mg Ampicillin Sodium/Sulbactam (Sodium 3 gm/ Sodium Chloride) 100 mls @ 200 mls/hr IV Q6H [facility] Last Infusion: 11/03/24 09:00 Dose: Infused Magnesium Hydroxide (Milk Of Magnesia 30 Ml Oral.Susp) 30 ml PO DAILY PRN PRN Reason: Constipation Melatonin (Melatonin 3 Mg Tablet) 6 mg PO BEDTIME PRN PRN Reason: Insomnia Ondansetron HCl (Ondansetron Hcl 4 Mg/2 Ml Vial) 4 mg IVPUSH Q8H PRN PRN Reason: Nausea and Vomiting Sodium Chloride (0.9 % Sodium Chloride Flush 3 Ml Syringe) 3 ml IVFLUSH QSHIFT [facility] Last Admin: 11/03/24 08:31 Dose: 3 ml Physical Exam 2 Vital Signs: Vital Signs: Last Vital Signs Temp 98.0 F 11/03/24 11:21 Pulse 101 H 11/03/24 11:21 Resp 18 11/03/24 11:21 BP 158/85 H 11/03/24 11:21 Pulse Ox 95 11/03/24 11:21 O2 Del Method Room Air 11/03/24 11:21 BMI result Body Mass Index 42.2 Const: Other: Very well developed male in no acute respiratory distress Chest: Other: Diminished breath sounds left. No obvious cervical periclavicular axillary adenopathy. GI: Other: Abdomen corpulent, benign Results Labs 11/03/24 04:42 11/03/24 04:42 Labs: Abnormal lab results 11/03/24 11/03/24 Range/Units 01:34 04:42 WBC 13.6 H 15.3 H (4.8-10.8) X10*3/uL RBC 4.34 L 4.37 L (4.60-5.80) X10*6/uL Hgb 12.0 L 12.0 L (14.0-18.0) g/dl Hct 36.4 L 37.2 L (42.0-52.0) % Plt Count 413 H (160-400) X10*3/uL MPV 8.9 L (9.4-12.4) fL Immature Gran % (Auto) 0.6 H (0.0-0.4) % Neut % (Auto) 93.8 H (45-73) % Lymph % (Auto) 16.1 L 3.4 L (20-40) % [place] % (Auto) 1.4 L (2-11) % Eos % (Auto) 4.2 H (0-4) % Lymph # (Auto) 0.5 L (1.2-4.9) X10*3/uL Eos # (Auto) 0.6 H (0.0-0.4) X10*3/uL Abs Immat Gran (auto) 0.04 H 0.09 H (0.00-0.03) X10*3/uL Absolute Neuts (auto) 9.6 H 14.4 H (2.0-8.3) x10*3/uL Short CBC 11/03/24 11/03/24 Range/Units 01:34 04:42 WBC 13.6 H 15.3 H (4.8-10.8) X10*3/uL Hgb 12.0 L 12.0 L (14.0-18.0) g/dl Hct 36.4 L 37.2 L (42.0-52.0) % Plt Count 413 H 389 (160-400) X10*3/uL BMP 11/03/24 11/03/24 01:34 04:42 Sodium 142 141 Potassium 3.9 3.9 Chloride 108 108 Carbon Dioxide 26 24 BUN 12 12 Creatinine 0.77 0.70 Calcium 9.1 D 8.6 All other labs normal. Assessment and Plan (1) Pleural effusion, left: Status: Acute (2) Pneumonia: Status: Acute Plan CT scan findings as noted above multiloculated left pleural effusion with atelectasis/pneumonia involving left lower lobe. I have reviewed this with the patient's hospitalist as well as had a lengthy discussion with the patient that he requires hospitalization, IV antibiotics, and IR placement of a pigtail chest tube. Depending on what happens status post chest tube placement, patient may require tPA. If he has progression of symptoms with minimal improvement, he may also required decortication but it will all be determined by the patient's clinical course. All questions answered. To follow up. Procedures Date of Service Date of Service: 11/03/24
[2024-11-04] VITALS (10 sets, daily range): BP systolic 139–170; BP diastolic 76–94; PULSE 75–100; RESP 16–20; TEMP 36.3–36.9; O2SAT 94–99
[2024-11-04] MEDS: Ampicillin Sodium/Sulbactam Na 3 GM in 0.9 % Sodium Chloride 100 ML IV ×4 (01:29→21:09)
[2024-11-04] MEDS: Albuterol/Iprat 2.5/0.5MG 3 ML AMPUL.NEB INHALE ×4 (08:07→19:36)
--- NOTE | 2024-11-04 08:22 | MHC.CM.PN ---
CM met with Patient at bedside. Patient lives in an apartment with his Mother and he is functionally independent and prefers to walk home at time of dc. Home/self care is the goal and CM has initiated and will follow for dc planning. PCP is Dr. David Ng. Patient was not interested in completing a HCP.
[2024-11-04] MEDS: dexAMETHasone 6 MG TABLET PO (09:30)
[2024-11-04] MEDS: 0.9 % Sodium Chloride Flush 3 ML SYRINGE IVFLUSH ×2 (09:31→16:41)
--- NOTE | 2024-11-04 10:06 | P.PNIM_ITS ---
Subjective Subjective Date of Service: 11/04/24 Review of Systems Follow-up pneumonia Pleural effusion Physical Exam 2 Vital Signs: Vital Signs: Last Vital Signs Temp 97.8 F 11/04/24 08:00 Pulse 86 11/04/24 08:09 Resp 16 11/04/24 08:09 BP 139/94 H 11/04/24 08:00 Pulse Ox 99 11/04/24 08:00 O2 Del Method Room Air 11/04/24 08:00 BMI result Body Mass Index 42.2 Appearing in no acute distress lung sounds Left diminished heart regular rate rhythm, clear S1, S2 positive bowel sounds, abdomen is soft, nontender neuro patient is alert x3, no focal deficits Objective Data Active Medications Acetaminophen (Acetaminophen 325 Mg Tablet) 650 mg PO Q6H PRN PRN Reason: Pain, Mild 1-3,fever,headache Albuterol/Ipratropium (Albuterol/Iprat 2.5/0.5mg 3 Ml Ampul.Neb) 3 ml INHALE Q4H PRN PRN Reason: Shortness of Breath/Wheezing Albuterol/Ipratropium (Albuterol/Iprat 2.5/0.5mg 3 Ml Ampul.Neb) 3 ml INHALE RQ4H WHILE AWAKE [facility] Last Admin: 11/04/24 08:07 Dose: 3 ml Documented By: MARLEN Benzonatate (Benzonatate 100 Mg Capsule) 100 mg PO TID PRN PRN Reason: Cough Calcium Carbonate (Calcium Carbonate 750 Mg Tab.Chew) 750 mg PO Q4H PRN PRN Reason: Heartburn Dexamethasone (Dexamethasone 6 Mg Tablet) 6 mg PO DAILY [facility] Last Admin: 11/04/24 09:30 Dose: 6 mg Documented By: AVRIL Ampicillin Sodium/Sulbactam (Sodium 3 gm/ Sodium Chloride) 100 mls @ 200 mls/hr IV Q6H [facility] Last Admin: 11/04/24 09:41 Dose: 200 mls/hr Documented By: AVRIL Magnesium Hydroxide (Milk Of Magnesia 30 Ml Oral.Susp) 30 ml PO DAILY PRN PRN Reason: Constipation Melatonin (Melatonin 3 Mg Tablet) 6 mg PO BEDTIME PRN PRN Reason: Insomnia Ondansetron HCl (Ondansetron Hcl 4 Mg/2 Ml Vial) 4 mg IVPUSH Q8H PRN PRN Reason: Nausea and Vomiting Sodium Chloride (0.9 % Sodium Chloride Flush 3 Ml Syringe) 3 ml IVFLUSH QSHIFT [facility] Last Admin: 11/04/24 09:31 Dose: 3 ml Documented By: AVRIL Labs 11/03/24 04:42 11/03/24 04:42 Assessment and Plan (1) Asthma exacerbation: Status: Acute (2) Pleural effusion, left: Status: Acute Plan This is a 29-year-old male with pertinent history of asthma not on home oxygen who presents to the emergency department for evaluation of dyspnea and cough Sepsis due to left-sided pneumonia with loculated pleural effusion m IR Sputum culture pending. blood culture neg after 48hrs not requiring oxygen, ambulating with no sob Pulm consult pending thoracic surgery> rec pig tail cath, thoracentesis ordered continue IV Unasyn. Acute exacerbation of asthma in the setting of above and COVID-19 infection Scheduled and p.r.n. DuoNebs. Continue home inhaler. systemic steroids Leukocytosis secondary to steroids and pna Morbid Obesity. BMI 42.2 Weight loss encouraged DVT prophylaxis: Defer Lovenox for possible thoracentesis Full code Admit as inpatient and will require two night minimum hospital stay for IV antibiotics (as above), which is not possible in a lesser acute setting. Quality Stroke Does the patient have a stroke diagnosis?: No VTE Prior VTE?: No VTE Risk Level:: Medical - moderate - high VTE Device Contraindication: Treatment Not Indicated VTE Drug Contraindication: N/A - Med Ordered
--- NOTE | 2024-11-04 13:28 | PM.PNTS ---
Subjective Subjective Date of Service: 11/04/24 Interval history: Patient says he is feeling better. No acute respiratory issues. Physical Exam Vital Signs: Vital Signs: Last Vital Signs Temp 98.3 F 11/04/24 12:00 Pulse 83 11/04/24 12:00 Resp 18 11/04/24 12:00 BP 158/85 H 11/04/24 12:00 Pulse Ox 94 11/04/24 12:00 O2 Del Method Room Air 11/04/24 12:00 BMI result Body Mass Index 42.2 Chest: Other: Chest exam status quo, diminished breath sounds left. Procedures Date of Service Date of Service: 11/04/24 Progress Note: A&P Assessment and plan (1) Pleural effusion, left: Status: Acute (2) Pneumonia: Status: Acute Plan Patient was scheduled for IR drainage of left pleural effusion for tomorrow. Continue IV antibiotics, incentive spirometry, out of bed Time Spent With Patient Time: Total time managing care of this patient today ____ minutes. Quality Stroke Does the patient have a stroke diagnosis?: No VTE Prior VTE?: No VTE Risk Level:: Medical - moderate - high VTE Device Contraindication: Treatment Not Indicated VTE Drug Contraindication: N/A - Med Ordered
--- NOTE | 2024-11-04 17:21 | P.CONPL_ITS ---
History of Present Illness History of Present Illness Consult date: 11/04/24 Chief complaint: Dyspnea Narrative: 29-year-old gentleman with underlying history of asthma, recent 10 pack-year smoker, occasionally uses marijuana, admitted on 11/03/2024 with 5 day history of left-sided pleuritic pain, worse with inspiration and cough productive of yellowish sputum resulting dyspnea, particularly with exertion. Patient was noted to be positive for COVID-19 medium sized left-sided loculated pleural effusion was noted on CT chest. He was started on empiric antibiotics and admitted to telemetry perez. Pulmonary evaluation was requested for loculated pleural effusion. Review of Systems 2 Constitutional: Constitutional: Denies daytime sleepiness, Denies excessive sweating, Denies fatigue, Denies fever(s), Denies lethargy, Denies malaise, Denies night sweats, Denies snoring and Denies weight loss Eyes: Eyes: Denies blurry vision and Denies itchy eyes ENT: Denies nasal congestion, Denies post nasal drip, Denies sinus pain, Denies sinus pressure and Denies other ( Thrush) Cardiovascular: Cardiovascular: Denies chest pain, Denies pedal edema, Denies dyspnea, Denies orthopnea and Denies paroxysmal nocturnal dyspnea Respiratory: Respiratory: Reports cough, Denies hemoptysis, Reports excessive phlegm production, Reports pain on inspiration, Denies dyspnea, Denies snoring and Denies wheezing Gastrointestinal: Gastrointestinal: Denies abdominal pain and Denies heartburn Musculoskeletal: Musculoskeletal: Denies myalgias, Denies arthralgias and Denies joint swelling Integumentary/Breasts: Skin/Breast: Denies rash Neurologic: Denies memory loss and Denies seizure-like activity Psychiatric: Psychiatric: Denies abnormal sleep pattern, Denies anxiety and Denies memory loss Endocrine: Endocrine: Denies excessive sweating, Denies fatigue and Denies heat intolerance Hematologic/Lymphatic: Hematologic/Lymphatic: Denies easy bruising Allergic/Immunologic: Allergic/Immunologic: Denies itchy eyes, Denies seasonal rhinorrhea and Denies wheezing PMFSH Social History Social History Household Members: Family Housing: House Do you presently have visiting nurse or other home services: No Alcohol intake: current Alcohol intake frequency: 3 or more drinks per day Alcohol type: beer, wine and hard liquor Patient Tobacco Use Status: Former Tobacco user Second Hand Smoke Exposure: No Substance Use Type: Marijuana service: No Meds Allergies Allergy/AdvReac Type Severity Reaction Status Date / Time No Known Allergies Allergy Verified 11/02/24 23:29 [No Known Allergies*] Active Medications: Current Medications Acetaminophen (Acetaminophen 325 Mg Tablet) 650 mg PO Q6H PRN PRN Reason: Pain, Mild 1-3,fever,headache Albuterol/Ipratropium (Albuterol/Iprat 2.5/0.5mg 3 Ml Ampul.Neb) 3 ml INHALE Q4H PRN PRN Reason: Shortness of Breath/Wheezing Albuterol/Ipratropium (Albuterol/Iprat 2.5/0.5mg 3 Ml Ampul.Neb) 3 ml INHALE RQ4H WHILE AWAKE [facility] Last Admin: 11/04/24 15:07 Dose: 3 ml Benzonatate (Benzonatate 100 Mg Capsule) 100 mg PO TID PRN PRN Reason: Cough Calcium Carbonate (Calcium Carbonate 750 Mg Tab.Chew) 750 mg PO Q4H PRN PRN Reason: Heartburn Dexamethasone (Dexamethasone 6 Mg Tablet) 6 mg PO DAILY [facility] Last Admin: 11/04/24 09:30 Dose: 6 mg Ampicillin Sodium/Sulbactam (Sodium 3 gm/ Sodium Chloride) 100 mls @ 200 mls/hr IV Q6H [facility] Last Infusion: 11/04/24 16:30 Dose: Infused Magnesium Hydroxide (Milk Of Magnesia 30 Ml Oral.Susp) 30 ml PO DAILY PRN PRN Reason: Constipation Melatonin (Melatonin 3 Mg Tablet) 6 mg PO BEDTIME PRN PRN Reason: Insomnia Ondansetron HCl (Ondansetron Hcl 4 Mg/2 Ml Vial) 4 mg IVPUSH Q8H PRN PRN Reason: Nausea and Vomiting Sodium Chloride (0.9 % Sodium Chloride Flush 3 Ml Syringe) 3 ml IVFLUSH QSHIFT [facility] Last Admin: 11/04/24 16:41 Dose: 3 ml Physical Exam 2 Vital Signs: Vital Signs: Last Vital Signs Temp 98.2 F 11/04/24 15:53 Pulse 100 11/04/24 15:53 Resp 16 11/04/24 15:53 BP 167/76 H 11/04/24 15:53 Pulse Ox 96 11/04/24 15:53 O2 Del Method Room Air 11/04/24 15:53 BMI result Body Mass Index 42.2 Const: General: no acute distress and alert Nutritional Appearance: not obese Orientation/consciousness: Other orientation findings ( oriented) HEENT: Head: Yes atraumatic Eyes: General: appearance normal, both eyes and all related structures S clerae: sclerae normal EOM: EOMs intact bilaterally Neck: Neck: Yes supple Lymphatic: no lymphadenopathy noted Resp: Effort & Inspection: normal respiratory effort and no use of accessory muscles Auscultation: crackles (Left basilar) Cardio: Rate: tachycardic Rhythm: regular rhythm Heart sounds: no gallops, no murmurs and no rubs GI: Palpation (GI): Soft to palpation and Other GI palpation findings present ( Nontender) Auscultation: normal bowel sounds Skin: General skin exam: other ( warm) Extrem: General: No clubbing, No cyanosis and No edema Results Laboratory Findings 11/03/24 04:42 11/03/24 04:42 Abnormal lab findings: Abnormal Labs 11/03/24 11/03/24 01:34 04:42 WBC 13.6 H 15.3 H RBC 4.34 L 4.37 L Hgb 12.0 L 12.0 L Hct 36.4 L 37.2 L Plt Count 413 H MPV 8.9 L Immature Gran % (Auto) 0.6 H Neut % (Auto) 93.8 H Lymph % (Auto) 16.1 L 3.4 L [place] % (Auto) 1.4 L Eos % (Auto) 4.2 H Lymph # (Auto) 0.5 L Eos # (Auto) 0.6 H Abs Immat Gran (auto) 0.04 H 0.09 H Absolute Neuts (auto) 9.6 H 14.4 H Microbiology: Microbiology 11/03/24 12:35 Blood - Venous Blood Culture - Preliminary No growth after 24 hours. 11/03/24 12:35 Blood - Venous Blood Culture - Preliminary No growth after 24 hours. Assessment and Plan (1) COVID-19: Status: Acute (2) Pleural effusion, left: Status: Acute Plan Impression: 29-year-old gentleman admitted with COVID pneumonia with moderate loculated left-sided pleural effusion. Recommendations: Agree with empiric antibiotics possible bacterial superinfection. Suggests left-sided chest tube with chemical decortication for 3 days and repeat imaging thereafter. Procedures Date of Service Date of Service: 11/05/24
[2024-11-05] VITALS (16 sets, daily range): BP systolic 150–180; BP diastolic 78–100; PULSE 73–99; RESP 14–19; TEMP 36.4–37.3; O2SAT 95–100
[2024-11-05] MEDS: Ampicillin Sodium/Sulbactam Na 3 GM in 0.9 % Sodium Chloride 100 ML IV ×4 (02:38→20:39)
[2024-11-05] MEDS: 0.9 % Sodium Chloride Flush 3 ML SYRINGE IVFLUSH ×3 (02:39→15:11)
[2024-11-05] MEDS: dexAMETHasone 6 MG TABLET PO (07:42)
--- NOTE | 2024-11-05 08:30 | PM.PNTS ---
Subjective Subjective Date of Service: 11/05/24 Interval history: Feels improved from respiratory status but nervous about procedure. Physical Exam Vital Signs: Vital Signs: Last Vital Signs Temp 98.3 F 11/05/24 04:00 Pulse 80 11/05/24 04:00 Resp 16 11/05/24 04:00 BP 168/78 H 11/05/24 05:00 Pulse Ox 97 11/05/24 04:00 O2 Del Method Room Air 11/05/24 04:00 BMI result Body Mass Index 42.2 Const: General: comfortable, no acute distress and alert Orientation/consciousness: patient oriented x3 Resp: Effort & Inspection: normal respiratory effort, respiratory effort not decreased, not tachypneic and no use of accessory muscles Skin: General skin exam: no rashes or lesions noted Neuro: General: patient oriented x3 and moves all extremities Procedures Date of Service Date of Service: 11/05/24 Progress Note: A&P Assessment and plan (1) Pleural effusion, left: Status: Acute (2) Pneumonia: Status: Acute Plan Plan for IR left chest tube placement for left pleural effusion today. Continue IV antibiotics, incentive spirometry, OOB. May need fibrinolysis if no improvement with chest tube and if fluid collection proves to be loculated. Further plan dependent on clinical course. Patient comfortable with plan. Time Spent With Patient Time: Total time managing care of this patient today ____ minutes. Quality Stroke Does the patient have a stroke diagnosis?: No VTE Prior VTE?: No VTE Risk Level:: Medical - moderate - high VTE Device Contraindication: Treatment Not Indicated VTE Drug Contraindication: N/A - Med Ordered
[2024-11-05] MEDS: Albuterol/Iprat 2.5/0.5MG 3 ML AMPUL.NEB INHALE ×4 (08:43→21:10)
[2024-11-05] MEDS: LORazepam 2 MG/ML VIAL 1 MG IVPUSH (09:02)
--- NOTE | 2024-11-05 09:13 | MHC.CM.PN ---
EMR REVIEWED, PT WSEPSIS D/T LEFT PNA W/PLEURAL EFFUSION, PER HOSPITALIST PLAN FOR THORACENTESIS TODAY, NO PLAN FOR DC AT THIS TIME, CM WILL CONT TO FOLLOW DC NEEDS.
--- NOTE | 2024-11-05 10:05 | PM.PROC ---
Brief Operative Note Date of procedure: 11/05/24 Pre-op diagnosis: Left pleural effusion Post-op diagnosis: same Procedure: US left chest tube 10 fr drain placed. Non-clotting blood tinged fluid removed and sent for analysis. Anesthesia: local
[2024-11-05] MEDS: Lidocaine HCl 1 % MPF 5 ML VIAL 10 ML SUBCUT (10:30)
[2024-11-05 11:01] LABS: MN% 74.1 %; PMN% 25.9 %; RBC Peritoneal Fluid 0.197 X10*6/uL; WBC Peritoneal Fluid 3.275 X10*3/uL
--- NOTE | 2024-11-05 11:28 | HO.PM.IMPN ---
Subjective Subjective Date of Service: 11/05/24 Review of Systems Follow-up pneumonia Pleural effusion chest tube placement Physical Exam Vital Signs: Vital Signs: Last Vital Signs Temp 98.3 F 11/05/24 08:00 Pulse 98 11/05/24 10:15 Resp 16 11/05/24 10:15 BP 157/100 H 11/05/24 10:15 Pulse Ox 98 11/05/24 10:15 O2 Del Method Room Air 11/05/24 10:15 BMI result Body Mass Index 42.2 Appearing in no acute distress lung sounds are clear to auscultation heart regular rate rhythm, clear S1, S2 positive bowel sounds, abdomen is soft, nontender neuro patient is alert x3, no focal deficits Objective Data Active Medications Acetaminophen (Acetaminophen 325 Mg Tablet) 650 mg PO Q6H PRN PRN Reason: Pain, Mild 1-3,fever,headache Albuterol/Ipratropium (Albuterol/Iprat 2.5/0.5mg 3 Ml Ampul.Neb) 3 ml INHALE Q4H PRN PRN Reason: Shortness of Breath/Wheezing Albuterol/Ipratropium (Albuterol/Iprat 2.5/0.5mg 3 Ml Ampul.Neb) 3 ml INHALE RQ4H WHILE AWAKE [facility] Last Admin: 11/05/24 08:43 Dose: 3 ml Documented By: TRISTIN Benzonatate (Benzonatate 100 Mg Capsule) 100 mg PO TID PRN PRN Reason: Cough Calcium Carbonate (Calcium Carbonate 750 Mg Tab.Chew) 750 mg PO Q4H PRN PRN Reason: Heartburn Dexamethasone (Dexamethasone 6 Mg Tablet) 6 mg PO DAILY [facility] Last Admin: 11/05/24 07:42 Dose: 6 mg Documented By: JOSELITO Ampicillin Sodium/Sulbactam (Sodium 3 gm/ Sodium Chloride) 100 mls @ 200 mls/hr IV Q6H [facility] Last Infusion: 11/05/24 09:03 Dose: Infused Documented By: JOSELITO Magnesium Hydroxide (Milk Of Magnesia 30 Ml Oral.Susp) 30 ml PO DAILY PRN PRN Reason: Constipation Melatonin (Melatonin 3 Mg Tablet) 6 mg PO BEDTIME PRN PRN Reason: Insomnia Ondansetron HCl (Ondansetron Hcl 4 Mg/2 Ml Vial) 4 mg IVPUSH Q8H PRN PRN Reason: Nausea and Vomiting Sodium Chloride (0.9 % Sodium Chloride Flush 3 Ml Syringe) 3 ml IVFLUSH QSHIFT [facility] Last Admin: 11/05/24 07:41 Dose: 3 ml Documented By: JOSELITO Sodium Chloride (Sodium Chloride 0.65 % Nasal 44 Ml Sprbtl) 1 spray NOSTRIL-L Q1H PRN PRN Reason: Nasal Congestion Labs 11/03/24 04:42 11/03/24 04:42 Labs: Laboratory Results - last 24 hr 11/05/24 10:00 Peritoneal WBC 3.275 Peritoneal RBC 0.197 Microbiology Microbiology Results: Microbiology 11/03/24 12:35 Blood Culture - Preliminary Blood - Venous No growth after 24 hours. 11/03/24 12:35 Blood Culture - Preliminary Blood - Venous No growth after 24 hours. Assessment and Plan (1) Asthma exacerbation: Status: Acute (2) Pleural effusion, left: Status: Acute Plan This is a 29-year-old male with pertinent history of asthma not on home oxygen who presents to the emergency department for evaluation of dyspnea and cough Sepsis due to left-sided pneumonia with loculated pleural effusion m IR Sputum culture pending. blood culture neg after 48hrs not requiring oxygen, ambulating with no sob Pulm consult pending thoracic surgery> s/p horacentesis today, chest tube placed continue IV Unasyn. Acute exacerbation of asthma in the setting of above and COVID-19 infection Scheduled and p.r.n. DuoNebs. Continue home inhaler. systemic steroids Leukocytosis secondary to steroids and pna Morbid Obesity. BMI 42.2 Weight loss encouraged DVT prophylaxis: Defer Lovenox for possible thoracentesis Full code Admit as inpatient and will require two night minimum hospital stay for IV antibiotics (as above), which is not possible in a lesser acute setting. Quality Stroke Does the patient have a stroke diagnosis?: No VTE Prior VTE?: No VTE Risk Level:: Medical - moderate - high VTE Device Contraindication: Treatment Not Indicated VTE Drug Contraindication: N/A - Med Ordered
[2024-11-05] MEDS: HYDROmorphone HCl 0.5 MG/0.5 ML SYRINGE IVPUSH ×3 (11:57→21:18)
[2024-11-05 12:02] LABS: BF Shift QC OK YES; Basophils Peritoneal Fl 2 %; Eosinophils Peritoneal Fl 14 %; Lymphocyte Peritoneal Fl 62 %; Monocytes Peritoneal Fl 15 %; Neutrophils Peritoneal Fluid 7 %
--- NOTE | 2024-11-05 13:39 | P.CDIM_ITS ---
PROVIDER RESPONSE TEXT: To clarify, the appropriate diagnosis supported by the clinical indicators: Mild intermittent QUERY TEXT: PHYSICIAN'S DOCUMENTATION REQUEST Date of Query: 11/05/2024 12:08 PM EST Patient Name: Pravin Ferrera Admit Date: 11/03/2024 Dear Cathy Gregg [employer]ILRO[employer] WORKER, A review of the medical record indicates additional documentation may be needed. Please review below and update the documentation accordingly. Clinical indicators: Progress notes within the written Plan: Acute exacerbation of Asthma in the setting of above and COVI D-19 infection. Scheduled and p.r.n. DuoNebs. Continue home inhaler. Systemic steroids. Based on the above, please clarify in the Progress Notes further specificity regarding the type and a cuity of the asthma: Mild intermittent Mild persistent Moderate persistent Severe persistent Exercise induced Other (explain) Clinically unable to determine (explain) Thank you, Ольга Reno, CCS, CDIS Use of terms such as suspected, likely, concern for, or probable (associated with a specific diagnosi s that is being evaluated, monitored, or treated as if it exists) are acceptable and can be coded in the inpatient se tting, when documented at the time of discharge. Please use your independent medical judgment in providing your response. THIS QUERY IS PART OF THE PERMANENT MEDICAL RECORD
[2024-11-06] VITALS (9 sets, daily range): BP systolic 137–165; BP diastolic 73–92; PULSE 74–103; RESP 16–20; TEMP 36.6–36.9; O2SAT 95–99
[2024-11-06] MEDS: HYDROmorphone HCl 0.5 MG/0.5 ML SYRINGE IVPUSH ×5 (00:33→22:55)
[2024-11-06] MEDS: 0.9 % Sodium Chloride Flush 3 ML SYRINGE IVFLUSH ×4 (00:35→19:41)
[2024-11-06] MEDS: Ampicillin Sodium/Sulbactam Na 3 GM in 0.9 % Sodium Chloride 100 ML IV ×4 (02:15→19:41)
[2024-11-06 07:12] LABS: Glucose Pleural Fluid 83; LDH Pleural Fluid 326; pH Pleural Fluid 7.39
[2024-11-06] MEDS: dexAMETHasone 6 MG TABLET PO (07:49)
--- NOTE | 2024-11-06 07:50 | PM.PNTS ---
Subjective Subjective Date of Service: 11/06/24 Interval history: Feels much improved today, denies SOB, c/o some pain at chest tube site. Physical Exam Vital Signs: Vital Signs: Last Vital Signs Temp 97.9 F 11/06/24 04:00 Pulse 79 11/06/24 04:00 Resp 18 11/06/24 04:00 BP 145/91 H 11/06/24 04:00 Pulse Ox 98 11/06/24 04:00 O2 Del Method Room Air 11/06/24 04:00 BMI result Body Mass Index 42.2 Resp: Other: left posterior chest tube in place, large amount of serosanguineous drainage in pleurvac Effort & Inspection: normal respiratory effort, able to speak in complete sentences, no respiratory distress and no use of accessory muscles Skin: General skin exam: no rashes or lesions noted Procedures Date of Service Date of Service: 11/06/24 Progress Note: A&P Assessment and plan (1) Pleural effusion, left: Status: Acute Plan CXR this AM significantly improved, very small residual effusion. Scant drainage from pleurvac overnight. VSS. Stable respiratory sarmiento. Place chest tube to water seal. May not require the chemical decortication given the significant improvement but will defer to pulmonology. If no plan for fibrinolysis and output remains scant, possible removal of chest tube later today. Time Spent With Patient Time: Total time managing care of this patient today ____ minutes. Quality Stroke Does the patient have a stroke diagnosis?: No VTE Prior VTE?: No VTE Risk Level:: Medical - moderate - high VTE Device Contraindication: Treatment Not Indicated VTE Drug Contraindication: N/A - Med Ordered
[2024-11-06] MEDS: Albuterol/Iprat 2.5/0.5MG 3 ML AMPUL.NEB INHALE ×4 (08:19→20:43)
[2024-11-06] MEDS: Doxycycline Hyclate 100 MG in 0.9 % Sodium Chloride 250 ML 166.67 MG IV (08:56)
--- NOTE | 2024-11-06 08:59 | P.PNPL_ITS ---
Subjective Subjective Date of Service: 11/06/24 Interval history: The patient seen on exam. Status post pigtail placement. Minimal drainage around 50 cc. Chest x-ray significantly better with the aeration of the left base. The patient states that he did require multiple hospitalizations as a baby. He is not sure if it was a preemie he is going to not us now. This all could explain some the chronic appearing bronchiectatic airways that he has. I did review the pleural fluid specimens. His LDH is elevated suggesting of a exudative process. Although it is not neutrophilic predominant to suggest parapneumonic. Appears to show a eosinophilic pleural effusion. This could be related to infections, autoimmune conditions, thromboembolic disease and trauma. This point is likely secondary to infectious although connective tissue disease can not be ruled out specially with deep bronchiectatic looking airways. Will request additional blood work. But at this point with minimal drainage from the catheter were recommend removal. The patient did have a hard time sleeping with the last night. Objective Data Labs 11/03/24 04:42 11/03/24 04:42 Labs: Laboratory Results - last 24 hr 11/05/24 10:00 Peritoneal WBC 3.275 Peritoneal RBC 0.197 Periton Neutrophils 7 Periton Lymphocytes 62 Peritoneal Monocytes 15 Peritoneal Eosinophils 14 Peritoneal Basophils 2 Pleural pH 7.39 Pleural LDH 326 Pleural Glucose 83 Microbiology Microbiology Results: Microbiology 11/05/24 10:00 Pleural Fluid Gram Stain - Final 11/05/24 10:00 Pleural Fluid Routine Culture - Preliminary No growth to date. 11/05/24 10:00 Pleural Fluid Anaerobic Culture - Preliminary No growth to date. 11/03/24 12:35 Blood - Venous Blood Culture - Preliminary No growth after 48 hours. 11/03/24 12:35 Blood - Venous Blood Culture - Preliminary No growth after 48 hours. Review of Systems Constitutional: Denies daytime sleepiness, Denies excessive sweating, Denies fatigue, Denies fever(s), Denies lethargy, Denies malaise, Denies night sweats, Denies snoring and Denies weight loss Eyes: Denies blurry vision and Denies itchy eyes Denies nasal congestion, Denies post nasal drip, Denies sinus pain, Denies sinus pressure and Denies other ( Thrush) Cardiovascular: Reports chest pain, Denies pedal edema, Denies dyspnea, Denies orthopnea and Denies paroxysmal nocturnal dyspnea Respiratory: Reports cough, Denies hemoptysis, Reports excessive phlegm production, Reports pain on inspiration, Denies dyspnea, Denies snoring and Denies wheezing Gastrointestinal: Denies abdominal pain and Denies heartburn Musculoskeletal: Denies myalgias, Denies arthralgias and Denies joint swelling Skin/Breast: Denies rash Denies memory loss and Denies seizure-like activity Psychiatric: Denies abnormal sleep pattern, Denies anxiety and Denies memory loss Endocrine: Denies excessive sweating, Denies fatigue and Denies heat intolerance Hematologic/Lymphatic: Denies easy bruising Allergic/Immunologic: Denies itchy eyes, Denies seasonal rhinorrhea and Denies wheezing Physical Exam 2 Vital Signs: Vital Signs: Last Vital Signs Temp 97.9 F 11/06/24 08:00 Pulse 76 11/06/24 08:19 Resp 18 11/06/24 08:19 BP 147/91 H 11/06/24 08:00 Pulse Ox 99 11/06/24 08:00 O2 Del Method Room Air 11/06/24 08:00 BMI result Body Mass Index 42.2 Const: General: no acute distress and alert Nutritional Appearance: not obese Orientation/consciousness: Other orientation findings ( oriented) HEENT: Head: Yes atraumatic Eyes: General: appearance normal, both eyes and all related structures S clerae: sclerae normal EOM: EOMs intact bilaterally Neck: Neck: Yes supple Lymphatic: no lymphadenopathy noted Resp: Effort & Inspection: normal respiratory effort Cardio: Rate: tachycardic Rhythm: regular rhythm Heart sounds: no gallops, no murmurs and no rubs GI: Palpation (GI): Soft to palpation and Other GI palpation findings present ( Nontender) Auscultation: normal bowel sounds Skin: General skin exam: other ( warm) Extrem: General: No clubbing, No cyanosis and No edema Procedures Date of Service Date of Service: 11/06/24 Assessment and Plan Assessment and plan (1) COVID-19: Status: Acute (2) Pleural effusion, left: Problem details: Eosinophilic Status: Acute (3) Pneumonia: Status: Acute (4) Bronchiectasis: Status: Acute Plan continue Unasyn Started Doxycycline ok to remove chest tube if continues with minimal drainage ISS Continue Decadron Bloodwork consider checking a ddimer, if positive CTA to r/o PE (in view of the eosinophilic pleural effusion) Will need outpt f/u once better Time Spent With Patient Time: Total time managing care of this patient today ____ minutes. Progress Note: Quality Stroke Does the patient have a stroke diagnosis?: No
[2024-11-06 10:17] LABS: HIV AB/AG Nonreactive (Nonreactive); HIV Num 1 0.05 S/CO (0.00-0.99)
[2024-11-06 10:25] LABS: Erythrocyte Sedimentation Rate 25 MM/HR (0-15)
--- NOTE | 2024-11-06 12:48 | P.PNIM_ITS ---
Subjective Subjective Date of Service: 11/06/24 Review of Systems Follow-up pneumonia Pleural effusion chest tube placement Physical Exam 2 Vital Signs: Vital Signs: Last Vital Signs Temp 98.0 F 11/06/24 12:00 Pulse 84 11/06/24 12:00 Resp 20 11/06/24 12:00 BP 153/83 H 11/06/24 12:00 Pulse Ox 99 11/06/24 12:00 O2 Del Method Room Air 11/06/24 12:00 BMI result Body Mass Index 42.2 Appearing in no acute distress lung sounds are clear to auscultation, left chest CT heart regular rate rhythm, clear S1, S2 positive bowel sounds, abdomen is soft, nontender neuro patient is alert x3, no focal deficits Objective Data Active Medications Acetaminophen (Acetaminophen 325 Mg Tablet) 650 mg PO Q6H PRN PRN Reason: Pain, Mild 1-3,fever,headache Albuterol/Ipratropium (Albuterol/Iprat 2.5/0.5mg 3 Ml Ampul.Neb) 3 ml INHALE Q4H PRN PRN Reason: Shortness of Breath/Wheezing Albuterol/Ipratropium (Albuterol/Iprat 2.5/0.5mg 3 Ml Ampul.Neb) 3 ml INHALE RQ4H WHILE AWAKE [facility] Last Admin: 11/06/24 11:40 Dose: 3 ml Documented By: TRISTIN Benzonatate (Benzonatate 100 Mg Capsule) 100 mg PO TID PRN PRN Reason: Cough Calcium Carbonate (Calcium Carbonate 750 Mg Tab.Chew) 750 mg PO Q4H PRN PRN Reason: Heartburn Dexamethasone (Dexamethasone 6 Mg Tablet) 6 mg PO DAILY [facility] Last Admin: 11/06/24 07:49 Dose: 6 mg Documented By: JOSELITO Hydromorphone HCl (Hydromorphone Hcl 0.5 Mg/0.5 Ml Syringe) 0.5 mg IVPUSH Q3H PRN; Protocol PRN Reason: Pain, Severe (Pain Scale 7-10) Last Admin: 11/06/24 07:49 Dose: 0.5 mg Documented By: JOSELITO Ampicillin Sodium/Sulbactam (Sodium 3 gm/ Sodium Chloride) 100 mls @ 200 mls/hr IV Q6H [facility] Last Infusion: 11/06/24 08:27 Dose: Infused Documented By: JOSELITO Doxycycline Hyclate 100 mg/ (Sodium Chloride) 250 mls @ 166.67 mls/hr IV Q12H [facility] Last Infusion: 11/06/24 10:33 Dose: Infused Documented By: JOSELITO Magnesium Hydroxide (Milk Of Magnesia 30 Ml Oral.Susp) 30 ml PO DAILY PRN PRN Reason: Constipation Melatonin (Melatonin 3 Mg Tablet) 6 mg PO BEDTIME PRN PRN Reason: Insomnia Ondansetron HCl (Ondansetron Hcl 4 Mg/2 Ml Vial) 4 mg IVPUSH Q8H PRN PRN Reason: Nausea and Vomiting Sodium Chloride (0.9 % Sodium Chloride Flush 3 Ml Syringe) 3 ml IVFLUSH QSHIFT [facility] Last Admin: 11/06/24 07:49 Dose: 3 ml Documented By: JOSELITO Sodium Chloride (Sodium Chloride 0.65 % Nasal 44 Ml Sprbtl) 1 spray NOSTRIL-L Q1H PRN PRN Reason: Nasal Congestion Labs 11/03/24 04:42 11/03/24 04:42 Labs: Laboratory Results - last 24 hr 11/05/24 11/06/24 10:00 09:19 ESR 25 H Pleural pH 7.39 Pleural LDH 326 Pleural Glucose 83 HIV 1&2 Ab/P24 Ag 4thGn Nonreactive Microbiology Microbiology Results: Microbiology 11/05/24 10:00 Gram Stain - Final Pleural Fluid Routine Culture - Preliminary No growth to date. Anaerobic Culture - Preliminary No growth to date. 11/03/24 12:35 Blood Culture - Preliminary Blood - Venous No growth after 48 hours. 11/03/24 12:35 Blood Culture - Preliminary Blood - Venous No growth after 48 hours. Assessment and Plan (1) Asthma exacerbation: Status: Acute (2) Pleural effusion, left: Status: Acute Plan This is a 29-year-old male with pertinent history of asthma not on home oxygen who presents to the emergency department for evaluation of dyspnea and cough Sepsis due to left-sided pneumonia with loculated pleural effusion m IR Sputum culture pending. blood culture neg after 48hrs not requiring oxygen, ambulating with no sob Pulm consult> continue unasyn, add doxycycline, ISS, check ddimer to r/o PE thoracic surgery> s/p thoracentesis today, chest tube placed. continue IV Unasyn and doxycycline . Acute exacerbation of asthma in the setting of above and COVID-19 infection, Resolved Scheduled and p.r.n. DuoNebs. Continue home inhaler. systemic steroids Leukocytosis secondary to steroids and pna Morbid Obesity. BMI 42.2 Weight loss encouraged DVT prophylaxis: Defer Lovenox for possible thoracentesis Full code Quality Stroke Does the patient have a stroke diagnosis?: No VTE Prior VTE?: No VTE Risk Level:: Medical - moderate - high VTE Device Contraindication: Treatment Not Indicated VTE Drug Contraindication: N/A - Med Ordered
[2024-11-06 13:35] LABS: D Dimer High Sensitivity 774 NG/ML
[2024-11-06] MEDS: Doxycycline Hyclate 100 MG in 0.9 % Sodium Chloride 250 ML 166.7 MG IV (19:40)
[2024-11-07] VITALS: BP 165/79; PULSE 88; RESP 20; TEMP 36.7; O2SAT 99
[2024-11-07] MEDS: HYDROmorphone HCl 0.5 MG/0.5 ML SYRINGE IVPUSH ×3 (03:16→13:12)
[2024-11-07] MEDS: Ampicillin Sodium/Sulbactam Na 3 GM in 0.9 % Sodium Chloride 100 ML IV ×3 (03:16→13:12)
[2024-11-07] MEDS: Melatonin 3 MG TABLET 6 MG PO (03:30)
[2024-11-07] MEDS: Calcium Carbonate 750 MG TAB.CHEW PO (03:30)
[2024-11-07 04:00] VITALS: BP 143/86; PULSE 105; RESP 20; TEMP 36.9; O2SAT 99
[2024-11-07 07:46] VITALS: PULSE 78; RESP 16; O2SAT 98
[2024-11-07] MEDS: Albuterol/Iprat 2.5/0.5MG 3 ML AMPUL.NEB INHALE ×2 (07:46→11:36)
[2024-11-07 08:00] VITALS: BP 145/74; PULSE 87; RESP 18; TEMP 37.2; O2SAT 97
[2024-11-07] MEDS: Doxycycline Hyclate 100 MG in 0.9 % Sodium Chloride 250 ML 166.7 MG IV (08:21)
[2024-11-07] MEDS: 0.9 % Sodium Chloride Flush 3 ML SYRINGE IVFLUSH ×2 (08:21→13:12)
[2024-11-07] MEDS: dexAMETHasone 6 MG TABLET PO (08:21)
[2024-11-07] MEDS: iohexoL 350 MG/ML 75 ML INFUS..BTL 65 ML IV (10:24)
[2024-11-07 11:36] VITALS: PULSE 95; RESP 18; O2SAT 96
--- NOTE | 2024-11-07 11:56 | PM.DS ---
DS: Providers Provider Date of Service: 11/07/24 Date of admission: 11/03/24 01:57 Date of discharge: 11/07/24 Primary care physician: Zeeshan Ng MD Consults: 11/03/24 01:52 Consult to Thoracic Surgery Routine Consulting Provider: August Bhatia Reason for consultation: loculated pleural effusion 11/04/24 10:06 Consult to Pulmonology Routine Consulting Provider: [facility] Reason for consultation: large left effusion, covid pos DS: Diagnosis Discharge Diagnosis (1) Asthma exacerbation: Status: Acute (2) Pleural effusion, left: Status: Acute DS: Summary Hospital Course Hospital Course: History and physical as per admitting provider. This is a 29-year-old male with pertinent history of asthma not on home oxygen who presents to the emergency department for evaluation of dyspnea and cough. Patient states his symptoms started 4 days prior to presentation. He has been having productive cough with yellowish sputum production. Also has been having dyspnea which is worse with exertion. Has associated wheezing not relieved with home inhalers. No sick contacts. Does have left-sided pleuritic chest discomfort. No fever, chills, palpitations, abdominal pain, changes in urinary or bowel habits. In the emergency department, imaging with left-sided pneumonia with loculated pleural effusion. Also found to be septic with tachycardia, tachypnea and leukocytosis. Tested positive for COVID-19 infection 29-year-old man admitted with dyspnea found to have left-sided eosinophilic pneumonia with pleural effusion. Patient started on Unasyn initially, seen and evaluated by pulmonology with recommendation to add doxycycline. The patient was also seen and evaluated by thoracic surgery with recommendation for thoracentesis and chest tube placement. Pacer underwent IR procedure on 11/05/2024 with chest tube placement and removal on 11/06/2024. Patient also had D-dimer checked which was elevated and subsequently chest CTA was negative for PE, sputum culture remained negative, pleural fluid with no growth, negative blood cultures. During the hospitalization patient did not require any oxygen and did not report any shortness of breath. He was also found to have COVID-19 and he was started on Decadron 6 mg, will complete total of 10 days. He will also complete a total of 10 days of antibiotics at home. Leukocytosis. Secondary to steroids and pneumonia Morbid Obesity. BMI 42.2 Discussed importance of weight management as this may be contributing to worsening of other comorbidities Time Attestation Discharge Coordination Time (in mins): 40 Quality: Safe Use of Opioids Does Pt have an Active Cancer Diagnosis on the Problem List?: No Quality: Stroke Does the patient have a stroke diagnosis?: No Physical Exam Vital Signs: Vital Signs: Last Vital Signs Temp 99.0 F 11/07/24 08:00 Pulse 95 11/07/24 11:36 Resp 18 11/07/24 11:36 BP 145/74 H 11/07/24 08:00 Pulse Ox 97 11/07/24 08:00 O2 Del Method Room Air 11/07/24 08:00 BMI result Body Mass Index 42.2 Appearing in no acute distress head is normocephalic atraumatic eyes pupils are PERRLA sclera is anicteric mouth throat mucous membranes are intact and moist neck is supple no lymphadenopathy, no JVD noted lung sounds are clear to auscultation heart regular rate rhythm, clear S1, S2 positive bowel sounds, abdomen is soft, nontender neuro patient is alert x3, no focal deficits DS: Data Data Completed and Pending Pending studies at discharge: Pending at discharge 11/04/24 10:11 Cytology [PTH] Stat Labs on day of discharge: Laboratory Results - last 24 hr 11/06/24 13:02 D-Dimer High Sensitivty 774 Preliminary micro results at discharge 11/05/24 10:00 Anaerobic Culture - Preliminary Pleural Fluid No growth to date. 11/03/24 12:35 Blood Culture - Preliminary Blood - Venous No growth after 48 hours. 11/03/24 12:35 Blood Culture - Preliminary Blood - Venous No growth after 48 hours. Discharge Plan Discharge Anticipated Discharge Date/Time: 11/03/24 12:12 Patient Disposition: Home, Self-Care Discharge Diagnosis: Sepsis Pneumonia Loculated pleural effusion Acute asthma exacerbation COVID-19 Referrals: August Bhatia MD [Physician] - 1 Week Franklin Gregg MD [Physician] - None Discharge Medications: New dexamethasone 6 mg Tablet 6 mg PO DAILY Qty: 5 0RF benzonatate 100 mg Capsule 100 mg PO TID PRN (Reason: Cough) Qty: 12 0RF oxycodone 5 mg tablet 5 mg PO TID PRN (Reason: pain) Qty: 15 0RF Rx Instructions: Partial Fill upon patient request. doxycycline hyclate 100 mg tablet 100 mg PO BID Qty: 20 0RF Continued albuterol sulfate 2.5 mg /3 mL (0.083 %) solution for nebulization 2.5 mg inhalation Q4-6H PRN (Reason: shortness of breath or wheezing) Qty: 75 0RF Discharge Orders: Discharge Order (Routine); Ordered 11/07/24 Ordered By: Cathy Gregg Diet: Advance to usual diet Activity on Discharge: As tolerated Stand Alone Forms: Patient Portal Discharge page Print Language: Macedonian Activity Restrictions/Additional Instructions: Chest tube site dressing changes with xeroform and 4x4, tape every other day and PRN Follow up with Dr. Bhatia in 1 week. Care Plan Goals: Complete course of antibiotics and steroids Health Concerns: Sepsis Pneumonia Loculated pleural effusion Acute asthma exacerbation COVID-19 Plan of Treatment: Follow-up with primary care provider as needed Take all medications as prescribed Assessment: See discharge summary
[2024-11-07 12:00] VITALS: BP 162/79; PULSE 84; RESP 18; TEMP 37.6; O2SAT 97
[2024-11-07 13:53] LABS: Myeloperoxidase Antibody <1.0 AI; Proteinase 3 PR3 Antibodies <1.0 AI
--- NOTE | 2024-11-07 14:13 | MHC.CM.PN ---
PT MEDICALLY CLEARED FOR DC HOME SELF-CARE, PT WILL TAKE [facility] SHUTTLE HOME AT 3:15PM
[2024-11-07 14:17] LABS: Immunoglobulin E 353 kU/L (<OR=114)
[2024-11-07 21:19] LABS: IgA 593 mg/dL (47-310); IgG 1687 mg/dL (600-1640); IgM 43 mg/dL (50-300)
[2024-11-08 14:08] LABS: Anti Nuclear Antibody Screen NEGATIVE (NEGATIVE)
[2024-11-09 14:23] LABS: Cyclic Citrullinated Peptide <16 UNITS
== END 2024-11-07 15:06 | disposition home or self-care (01) | DRG 720 ==
LOC: HO.ED 11-03 01:34 → HO.EDOVER 11-03 02:02 → HO.IMC 11-03 16:28
PROVIDERS: Hospitalist; Physician Assistant Medical; Physician Assistant Surgical; Radiology Vascular & Interventional Radiology; Admitting Provider Student in an Organized Health Care Education/Training Program; Emergency Provider Internal Medicine; PCP Emergency Medicine Emergency Medical Services; Visit Provider Nurse Practitioner Acute Care
PROC: 0W9B30Z Drainage of Left Pleural Cavity with Drainage Device, Percutaneous Approach (ICD-10-PCS; CPT 32552; principal; 2024-11-05 09:00)
DX: A41.9 Sepsis, unspecified organism (principal); J12.82 Pneumonia due to coronavirus disease 2019; J47.0 Bronchiectasis with acute lower respiratory infection; U07.1 COVID-19; J91.8 Pleural effusion in other conditions classified elsewhere; J45.21 Mild intermittent asthma with (acute) exacerbation; E66.01 Morbid (severe) obesity due to excess calories; J98.11 Atelectasis; Z71.3 Dietary counseling and surveillance; Z68.41 Body mass index [BMI] 40.0-44.9, adult; Z87.891 Personal history of nicotine dependence; Z79.899 Other long term (current) drug therapy
CPT/HCPCS: 32557; 36415; 71045; 71275; 80048; 82784; 82785; 82945; 83605; 83615; 83986; 85025; 85379; 85652; 86021; 86038; 86200; 87040; 87070; 87073; 87116; 87205; 87206; 87389; 88305; 88341; 88342; 89051; 94640; 99285; A7041; J0131; J0295; J0456; J0696; J1171; J2003; J2060; J2919; J8540; Q4186; Q9967

== ENCOUNTER 2024-11-03 01:57 | Outpatient (BNV) | payer MEDICAID, SELFPAY | END 2024-11-07 09:43 | PROVIDERS: Admitting Provider Student in an Organized Health Care Education/Training Program; Emergency Provider Internal Medicine; PCP Emergency Medicine Emergency Medical Services; Visit Provider Radiology Diagnostic Radiology | DX: J84.9 Interstitial pulmonary disease, unspecified (principal); J47.9 Bronchiectasis, uncomplicated | CPT/HCPCS: 71275 ==

== ENCOUNTER 2024-11-03 01:57 | Outpatient (BNV) | payer MEDICAID, SELFPAY | END 2024-11-05 13:00 | PROVIDERS: Admitting Provider Student in an Organized Health Care Education/Training Program; Emergency Provider Internal Medicine; PCP Emergency Medicine Emergency Medical Services; Visit Provider Radiology Diagnostic Radiology | DX: J90 Pleural effusion, not elsewhere classified (principal) | CPT/HCPCS: 32557 ==

== ENCOUNTER 2024-11-03 01:57 | Outpatient (BNV) | payer MEDICAID, SELFPAY | END 2024-11-06 07:00 | PROVIDERS: Admitting Provider Student in an Organized Health Care Education/Training Program; Emergency Provider Internal Medicine; PCP Emergency Medicine Emergency Medical Services; Visit Provider Radiology Diagnostic Radiology | DX: J90 Pleural effusion, not elsewhere classified (principal); J98.11 Atelectasis; Z46.82 Encounter for fitting and adjustment of non-vascular catheter | CPT/HCPCS: 71045 ==

== ENCOUNTER → 2024-11-03 01:57 | Outpatient (BNV) | payer MEDICAID, SELFPAY | PROVIDERS: Admitting Provider Student in an Organized Health Care Education/Training Program; Emergency Provider Internal Medicine; PCP Emergency Medicine Emergency Medical Services; Visit Provider Surgery | DX: J90 Pleural effusion, not elsewhere classified (principal); J18.9 Pneumonia, unspecified organism | CPT/HCPCS: 99232 ==

== ENCOUNTER → 2024-11-03 01:57 | Outpatient (BNV) | payer MEDICAID, SELFPAY | PROVIDERS: Admitting Provider Student in an Organized Health Care Education/Training Program; Emergency Provider Internal Medicine; PCP Emergency Medicine Emergency Medical Services; Visit Provider Student in an Organized Health Care Education/Training Program | DX: J90 Pleural effusion, not elsewhere classified (principal); J45.901 Unspecified asthma with (acute) exacerbation | CPT/HCPCS: 99222; 99232; 99239; 99499 ==

== ENCOUNTER → 2024-11-03 01:57 | Outpatient (BNV) | payer MEDICAID, SELFPAY | PROVIDERS: Admitting Provider Student in an Organized Health Care Education/Training Program; Emergency Provider Internal Medicine; PCP Emergency Medicine Emergency Medical Services; Visit Provider Internal Medicine Pulmonary Disease | DX: U07.1 COVID-19 (principal); J90 Pleural effusion, not elsewhere classified | CPT/HCPCS: 99222 ==

== ENCOUNTER 2025-02-03 21:30 | Emergency (ER) | payer MEDICAID, SELFPAY ==
--- NOTE | ~2025-02-03 | XR_ITS ---
CLINICAL HISTORY: sob 2 view chest x-ray Comparison: CR/SR - XR CHEST 1V - 11/06/24 14:07 EST Findings: Diffuse parahilar interstitial prominence in both lungs. No pleural effusion or pneumothorax. Normal size heart. No acute fracture. IMPRESSION: 1. Diffuse perihilar interstitial prominence in both lungs may represent pulmonary vascular congestion/pulmonary edema. This document has been electronically signed by: Polo Osuna MD on 02/03/2025 22:50:42
[2025-02-03 21:49] VITALS: BP 137/63; PULSE 97; RESP 24; TEMP 37.2; O2SAT 96; BMI 44.8
--- NOTE | 2025-02-03 22:15 | ED_ITS ---
HPI - SOB/Dyspnea General Chief Complaint: Dyspnea Stated Complaint: Difficulty breathing Time Seen by Provider: 02/03/25 22:15 Source: patient Mode of arrival: ambulatory Limitations: no limitations History of Present Illness ED Provider: HPI Narrative: Patient's history of asthma ran out of his nebulizing solution for last few days been having shortness a breath wheezing with cough also has a nasal congestion headache no fever no chills Related Data Previous Rx's ?Medication ?Instructions ?Recorded albuterol sulfate 2.5 mg/3 mL 2.5 mg (3 mL) inhalation Q4-6H PRN 11/02/24 (0.083 %) solution for nebulization shortness of breath or wheezing #75 mL benzonatate 100 mg capsule 100 mg PO TID PRN Cough #12 caps 11/07/24 dexamethasone 6 mg tablet 6 mg PO DAILY #5 tabs 11/07/24 doxycycline hyclate 100 mg tablet 100 mg PO BID #20 tabs 11/07/24 oxycodone 5 mg tablet 5 mg PO TID PRN pain #15 tabs 11/07/24 albuterol sulfate 2.5 mg/3 mL 2.5 mg (3 mL) inhalation Q4-6H PRN 02/04/25 (0.083 %) solution for nebulization shortness of breath or wheezing #90 mL albuterol sulfate 90 mcg/actuation 2 puff inhalation Q6H PRN 02/04/25 aerosol inhaler shortness of breath or wheezing #8.5 grams prednisone 20 mg tablet 40 mg (2 x 20 mg) PO DAILY #10 tabs 02/04/25 Allergies Allergy/AdvReac Type Severity Reaction Status Date / Time No Known Allergies Allergy Verified 02/03/25 21:51 [No Known Allergies*] Review of Systems 2 Review of Systems: Yes all other systems are reviewed and are negative PMFSH Past Medical History Medical History COVID-19 Bronchiectasis Social History Social History Household Members: Family Housing: House Do you presently have visiting nurse or other home services: No Alcohol intake: current Alcohol intake frequency: 3 or more drinks per day Alcohol type: beer, wine and hard liquor Patient Tobacco Use Status: Former Tobacco user Smoked in Last 30 Days: Yes Second Hand Smoke Exposure: No Substance Use Type: Crack/Cocaine Substance Use Frequency: Occasionally Substance Use Frequency Other:: 3 Last Used Substance: Days (ago) Advance Directives: No Advance Directives Information Provided: Yes service: No Physical Exam 2 Vital Signs: Vital Signs: Last Vital Signs Temp 98.4 F 02/04/25 00:42 Pulse 99 02/04/25 00:42 Resp 16 02/04/25 00:42 BP 132/77 02/04/25 00:42 Pulse Ox 96 02/04/25 00:42 O2 Del Method Room Air 02/04/25 00:42 BMI result Body Mass Index 44.8 Appearance: Alert. Oriented X3. Moderate respiratory distress Eyes: No pallor or icterus ENT: Pharynx normal. Oral Mucosa moist Neck: Normal inspection. Neck supple. CVS: Normal heart rate and rhythm. Pulses normal. Respiratory: No respiratory distress. Equal air entry bilateral, bilateral wheezing Abdomen: Soft and nontender. Bowel sounds are present, no mass palpable, no CVA tenderness Skin: Skin warm and dry. Normal skin color. Normal skin turgor. Extremities: No lower extremity edema. No calf tenderness Neuro: Oriented X 3. No motor deficit. Medications Administered Discontinued Medications Generic Name Dose Route Start Last Admin Trade Name Sunilq PRN Reason Stop Dose Admin Acetaminophen/Butalbital/Caffeine 1 tab 02/03/25 23:08 02/03/25 23:15 Butalb/Acetamin/Caff 50/325/40 Tablet PO 02/03/25 23:09 1 tab ONCE ONE Administration Albuterol Sulfate 5 mg 02/03/25 23:54 02/04/25 00:00 Albuterol Sulfate (0.083%) 2.5 Mg/3 Ml Vial.Neb INHALE 02/03/25 23:55 5 mg ONCE ONE Administration Albuterol Sulfate 7.5 mg/ 0 mg 02/03/25 22:21 02/03/25 22:26 Albuterol/Ipratropium 3 ml INHALE 02/03/25 22:22 10 each ONCE ONE Administration Prednisone 60 mg 02/03/25 22:34 02/03/25 22:56 Prednisone 20 Mg Tablet PO 02/03/25 22:35 60 mg ONCE ONE Administration Medical Decision Making Lab Data 02/03/25 22:08 04/20/25 22:08 Labs: Lab Results 02/03/25 02/03/25 Range/Units 22:08 23:14 WBC 17.2 H (4.8-10.8) X10*3/uL RBC 4.84 (4.60-5.80) X10*6/uL Hgb 13.5 L (14.0-18.0) g/dl Hct 40.0 L (42.0-52.0) % MCV 82.6 (80.0-98.0) fL MCH 27.9 (27.0-33.0) pg MCHC 33.8 (31.0-36.0) g/dl RDW 13.3 (11.0-16.0) % Plt Count 330 (160-400) X10*3/uL MPV 9.2 L (9.4-12.4) fL Immature Gran % (Auto) 0.4 (0.0-0.4) % Neut % (Auto) 76.2 H (45-73) % Lymph % (Auto) 13.4 L (20-40) % Sequoyah % (Auto) 8.5 (2-11) % Eos % (Auto) 1.2 (0-4) % Baso % (Auto) 0.3 (0-2) % Lymph # (Auto) 2.3 (1.2-4.9) X10*3/uL Sequoyah # (Auto) 1.5 H (0.1-1.2) X10*3/uL Eos # (Auto) 0.2 (0.0-0.4) X10*3/uL Baso # (Auto) 0.1 (0.0-0.2) X10*3/uL Abs Immat Gran (auto) 0.07 H (0.00-0.03) X10*3/uL Absolute Neuts (auto) 13.1 H (2.0-8.3) x10*3/uL Absolute Nucleated RBC 0.000 (0.0-0.012) X10*3/uL Nucleated RBC % (auto) 0.0 (0.0-0.2) /100WBC Sodium 141 (135-145) mmol/L Potassium 3.9 (3.3-5.1) mmol/L Chloride 107 (96-108) mmol/L Carbon Dioxide 24 (22-29) mmol/L Anion Gap 14 (12-20) BUN 14 (9-16) mg/dL Creatinine 0.81 (0.5-1.4) mg/dL Estim Creat Clear Calc 189.3 Estimated GFR > 60 Random Glucose 88 (60-115) mg/dL Calcium 9.2 D (8.4-10.2) mg/dL Total Bilirubin 0.4 (0.0-1.0) mg/dL AST 19 (5-37) U/L ALT 17 (0-40) U/L Alkaline Phosphatase 99 (39-117) U/L Total Protein 7.6 (6.5-8.0) g/dL Albumin 4.1 (3.5-5.0) g/dL Influenza Type A (PCR) NEGATIVE (Negative) Influenza Type B (PCR) NEGATIVE (Negative) RSV RNA Qual (PCR) NEGATIVE (Negative) SARS-CoV-2 RNA (RT-PCR) NEGATIVE (Negative) Discharge Plan Discharge Clinical Impression: Asthma with exacerbation Patient Disposition: Home, Self-Care Instructions: Asthma (ED) Additional Instructions: Use inhaler and nebulizing treatment as advised Prednisone as prescribed Follow with your PCP Prescriptions: New albuterol sulfate 2.5 mg /3 mL (0.083 %) solution for nebulization 2.5 mg inhalation Q4-6H PRN (Reason: shortness of breath or wheezing) Qty: 90 0RF prednisone 20 mg tablet 40 mg PO DAILY Qty: 10 0RF albuterol sulfate 90 mcg/actuation HFA aerosol inhaler 2 puff inhalation Q6H PRN (Reason: shortness of breath or wheezing) Qty: 8.5 0RF No Action albuterol sulfate 2.5 mg /3 mL (0.083 %) solution for nebulization 2.5 mg inhalation Q4-6H PRN (Reason: shortness of breath or wheezing) Qty: 75 0RF dexamethasone 6 mg Tablet 6 mg PO DAILY Qty: 5 0RF benzonatate 100 mg Capsule 100 mg PO TID PRN (Reason: Cough) Qty: 12 0RF oxycodone 5 mg tablet 5 mg PO TID PRN (Reason: pain) Qty: 15 0RF Rx Instructions: Partial Fill upon patient request. doxycycline hyclate 100 mg tablet 100 mg PO BID Qty: 20 0RF Stand Alone Forms: Work/School Release Interventions: ED Discharge Assessment Last Done: 02/04/25 00:42 Discharge Date/Time: 02/04/25 00:43 Print Language: Malay
--- NOTE | 2025-02-03 22:15 | PC.NURSE ---
RT called for treatment.
[2025-02-03 22:16] LABS: MANUAL DIFF FLAG NO
[2025-02-03 22:20] LABS: Basophils Absolute Auto 0.1 X10*3/uL (0.0-0.2); Basophils Percent Auto 0.3 % (0-2); Eosinophils Absolute Auto 0.2 X10*3/uL (0.0-0.4); Eosinophils Percent Auto 1.2 % (0-4); Hemoglobin 13.5 g/dl (14.0-18.0); Imm Gran Abs Auto 0.07 X10*3/uL (0.00-0.03); Imm Gran Pct Auto 0.4 % (0.0-0.4); Lymphocytes Absolute Auto 2.3 X10*3/uL (1.2-4.9); Lymphocytes Percent Auto 13.4 % (20-40); Mean Corpuscular HGB Conc 33.8 g/dl (31.0-36.0); Mean Corpuscular Hemoglobin 27.9 pg (27.0-33.0); Mean Corpuscular Volume 82.6 fL (80.0-98.0); Mean Platelet Volume 9.2 fL (9.4-12.4); Monocytes Absolute Auto 1.5 X10*3/uL (0.1-1.2); Monocytes Percent Auto 8.5 % (2-11); Neutrophils Absolute Auto 13.1 x10*3/uL (2.0-8.3); Neutrophils Percent Auto 76.2 % (45-73); Platelet Count 330 X10*3/uL (160-400); Red Blood Count 4.84 X10*6/uL (4.60-5.80); Red Cell Distribution Width 13.3 % (11.0-16.0); White Blood Count 17.2 X10*3/uL (4.8-10.8)
[2025-02-03 22:26] VITALS: PULSE 93; RESP 18; O2SAT 94
[2025-02-03] MEDS: Albuterol Sulfate 7.5 MG, Albuterol/Iprat 2.5/0.5MG 3 ML 3 ML INHALE (22:26)
[2025-02-03 22:38] LABS: Alanine Aminotransferase 17 U/L (0-40); Albumin Level 4.1 g/dL (3.5-5.0); Alkaline Phosphatase 99 U/L (39-117); Anion Gap 14 (12-20); Aspartate Amino Transferase 19 U/L (5-37); Bilirubin Total 0.4 mg/dL (0.0-1.0); Blood Urea Nitrogen 14 mg/dL (9-16); Calcium 9.2 mg/dL (8.4-10.2); Carbon Dioxide 24 mmol/L (22-29); Chloride 107 mmol/L (96-108); Creatinine Clr Calc Pharmacy 189.3; Estimated Glomerular Filt Rate > 60; Glucose Random 88 mg/dL (60-115); Potassium 3.9 mmol/L (3.3-5.1); Sodium 141 mmol/L (135-145); Total Protein 7.6 g/dL (6.5-8.0)
[2025-02-03] MEDS: predniSONE 20 MG TABLET 60 MG PO (22:56)
[2025-02-03] MEDS: Butalb/Acetamin/Caff 50/325/40 TABLET 1 TAB PO (23:15)
[2025-02-04] VITALS: PULSE 71; RESP 18; O2SAT 99
[2025-02-04] MEDS: Albuterol Sulfate (0.083%) 2.5 MG/3 ML VIAL.NEB 5 MG INHALE
[2025-02-04 00:17] LABS: Influenza A PCR NEGATIVE (Negative); Influenza B PCR NEGATIVE (Negative); Resp Syncy Virus RNA Qual PCR NEGATIVE (Negative); SARS COV2 PCR INHOUSE NEGATIVE (Negative)
[2025-02-04 00:41] VITALS: BP 132/77; PULSE 99; RESP 16; TEMP 36.9; O2SAT 96
[2025-02-04 00:42] VITALS: BP 132/77; PULSE 99; RESP 16; TEMP 36.9; O2SAT 96
== END 2025-02-04 00:43 | disposition home or self-care (01) ==
PROVIDERS: Emergency Provider Internal Medicine
DX: J45.901 Unspecified asthma with (acute) exacerbation (principal); R06.02 Shortness of breath; R05.9 Cough, unspecified; R09.81 Nasal congestion; Z03.818 Encounter for observation for suspected exposure to other biological agents ruled out
CPT/HCPCS: 0241U; 36415; 71046; 80053; 85025; 94640; 99284; 99285

== ENCOUNTER → 2025-02-03 22:01 | Outpatient (BNV) | payer MEDICAID, SELFPAY | PROVIDERS: Emergency Provider Internal Medicine; Visit Provider Student in an Organized Health Care Education/Training Program | DX: R06.02 Shortness of breath (principal) | CPT/HCPCS: 71046 ==

== ENCOUNTER 2025-05-01 11:26 | Emergency (ER) | payer MEDICAID, SELFPAY ==
[2025-05-01 11:29] VITALS: BP 143/81; PULSE 98; RESP 16; TEMP 36.9; O2SAT 95; BMI 45.9
--- NOTE | 2025-05-01 11:30 | ED_ITS ---
HPI - Dental/Oral General Chief complaint: Dental/Oral Stated complaint: right tooth pain Time Seen by Provider: 05/01/25 11:30 Source: patient Mode of arrival: ambulatory Limitations: no limitations History of Present Illness ED Provider: SANDRA WATT PA-C HPI Narrative: 29-year-old male presents to the ED today for evaluation of dental pain x24 hours. Reports pain to right lower molar starting yesterday. Admits this to his cracked. No blunt trauma/injury. He did not trial any pain meds at home. Denies fever/chills. Denies sore throat, odynophagia, dysphagia, nausea or vomiting. Related Data Previous Rx's ?Medication ?Instructions ?Recorded albuterol sulfate 2.5 mg/3 mL 2.5 mg (3 mL) inhalation Q4-6H PRN 11/02/24 (0.083 %) solution for nebulization shortness of breat h or wheezing #75 mL benzonatate 100 mg capsule 100 mg PO TID PRN Cough #12 caps 11/07/24 dexamethasone 6 mg tablet 6 mg PO DAILY #5 tabs doxycycline hyclate 100 mg tablet 100 mg PO BID #20 ta bs 11/07/24 oxycodone 5 mg tablet 5 mg PO TID PRN pain #15 tab s 11/07/24 albuterol sulfate 2.5 mg/3 mL 2.5 mg (3 mL) inhalation Q4-6H PRN 02/04/25 (0.083 %) solution for nebulization shortness of breat h or wheezing #90 mL albuterol sulfate 90 mcg/actuation 2 puff inhalation Q 6H PRN 02/04/25 aerosol inhaler shortness of breath or wheez ing #8.5 grams prednisone 20 mg tablet 40 mg (2 x 20 mg) PO DAILY # 10 tabs 02/04/25 amoxicillin 875 mg-potassium 1 tab PO BID 7 days #14 t abs 05/01/25 clavulanate 125 mg tablet ketorolac 10 mg tablet 10 mg PO Q8H 5 days #15 tabs 05/01/25 Allergies Allergy/AdvReac Type Severity Reaction Status Date / Time No Known Allergies (No Known Allergy Verified 05/01/25 11:32 Allergies*) Review of Systems Review of Systems: Constitutional: No fever, chills, fatigue, night sweats, weight changes ENT/Mouth: No ear pain, hearing loss, nasal congestion, sinus pain, rhinorrhea, sore throat, +dental pain Eyes: No eye pain, swelling, redness, vision changes, discharge Cardio: No chest pain, palpitations, GOMES, orthopnea, peripheral edema Pulm: No SOB, cough, sputum, wheezing, dyspnea, hemoptysis GI: No nausea, vomiting, hematemesis, abdominal pain, diarrhea, constipation, hematochezia, melena : No irregular bleeding, dysuria, frequency, urgency, hesitancy, hematuria, flank pain, urinary flow changes, urinary incontinence or retention MSK: No back pain, neck pain, joint pain, myalgias Skin: No lesions, rashes Neuro: No weakness, numbness, paresthesias, LOC, dizziness, headache Psych: No anxiety/panic, depression, SI/HI, AH/VH All other systems reviewed and are negative. [facility] Past Medical History Attestation statement: The following information was validated with the patient. Source: old records reviewed and nursing notes reviewed Medical History COVID-19 Bronchiectasis Social History Social History Household Members: Family Housing: House Do you presently have visiting nurse or other home services: No Alcohol intake: current Alcohol intake frequency: 3 or more drinks per day Alcohol type: beer, wine and hard liquor Patient Tobacco Use Status: Former Tobacco user Second Hand Smoke Exposure: No Substance Use Type: Crack/Cocaine Advance Directives: No Advance Directives Information Provided: Yes Do you have a plan to hurt others: No Plan service: No Physical Exam Vital Signs: Vital Signs: Last Vital Signs Temp 98.4 F 05/01/25 11:46 Pulse 98 05/01/25 11:46 Resp 16 05/01/25 11:46 BP 143/81 H 05/01/25 11:46 Pulse Ox 95 05/01/25 11:46 O2 Del Method Room Air 05/01/25 11:46 BMI result Body Mass Index 45.9 General: Well appearing, in no acute distress. Skin: Warm, dry, intact. No rashes or lesions. Head: Normocephalic, atraumatic. EENT: Hearing is intact b/l. Conjunctiva clear. Sclera is anicteric. PERRLA. EOM intact. Moist mucous membranes.? + No facial edema. Tongue and lips wnl + multiple dental caries and poor dentit ion. right lower molar with localized p eriapical swelling to the buccal ginginva. No pointing. No active bleeding/ discharge. TTP. No palpable fluctuance. + No edema to buccal mucosa + Posterior oropharynx without erythema/ edema. Uvula midline. Controlling secretions and speaking in complete sentences + No submandublar, submental or cervical LAD. no anterior neck swelling. Cardiac: Chest wall symmetric. RRR Lungs: Normal respiratory effort without accessory muscle use. CTA bilaterally? Neuro: AOx3. Normal speech. Ambulating with steady gait. Psych: Appropriate mood and affect. Responds appropriately to questions. Course Course Course Narrative: Patient noted to have dental infection. There is no evidence of abscess that warrants drainage at this time. Will treat patient's pain and patient will be discharged home on Augmentin to ensure there is no worsening infection for follow-up with dentist. Patient advised to follow up with dentist this week. A referral has been provided. Patient has remained stable throughout ED visit today. I discussed worrisome signs and symptoms and when to return to the ED. All questions answered at this time. Patient is agreeable with disposition and stable for discharge. Medications Administered Discontinued Medications Generic Name Dose Route Start Last Admin Trade Name Freq PRN Reason Stop Dose Admin Ketorolac Tromethamine 30 mg 05/01/25 11:35 05/01/25 11:44 Ketorolac Tromethamine 30 Mg/Ml Vial IM 05/01/25 11:36 30 mg ONCE ONE Administration Medical Decision Making Medical Decision Making [facility] Narrative: 29-year-old male presents to the ED today for evaluation of dental pain x24 hours. mildly hypertensive, vitals are otherwise wnl. he is well appearing and in NAD. see exam portion for findings. Differential includes dental/ periapical abscess/infection, apthous stomatitis. Unlikely mono, herpes, sialadenitis, sialolithiasis, MEDICAL DETAIL REPRESENTATIVE, retropharyngeal abscess, deep neck infection, osteomyelitis, facial cellulitis/ abscess, lymphoma. Plan for pain control and discharge home with antibiotics and dentist follow up. Differential Diagnosis Differential Diagnoses: The differential diagnosis associated with the presentation includes as above. Admission/Observation Not indicated. Tests considered The following testing was considered but not selected: I considered obtaining a CT of the soft tissues neck however these is no evidence of ludwigs angina or concern for deep tissue infection. Not warranted at this time. Prescription Management I considered prescription management with: Pain Medication (toradol) and Antibiotic (augmentin) Chronic Conditions Patient?s care impacted by: Other (dental caries) Social Determinants Patient?s care significantly limited by Social Determinants of Health including: Other Social Determinant of Health Critical Care Time Critical Care Time Critical Care Time: No Discharge Plan Discharge Clinical Impression: Infected tooth Patient Disposition: Home, Self-Care Instructions: Root Canal (DC) Additional Instructions: You were evaluated in ED today for dental pain. You have a dental infection of your right lower molar. Augmentin is an antibiotic that has been sent to your pharmacy for treatment. Take this as prescribed and do not skip any doses. Take this to completion or the infection may persist or worsen. On Augmentin, softer bowel movements are to be expected. Call your provider if you move your bowels more than 4 times a day, your bowel movements are almost all liquid, or you get a rash.? Take tylenol at home as needed for pain. Toradol is a pain medication that has been sent to your pharmacy for you to take for break-through pain. Use this with caution. Do you not use this with other nsaids such as motrin/ ibuprofen as this can cause increased risk of GI b leeding. YOU NEED TO FOLLOW UP WITH A DENTIST. You have been provided with a referral to [facility]. They are currently taking new clients. Call them to make an appointment. They will not call you. Return with new or worsening symptoms. In the case of an emergency call [phone]. [facility]: [phone] [facility] [address] Prescriptions: New amoxicillin-pot clavulanate 875-125 mg tablet 1 tab PO BID 7 Days Qty: 14 0RF ketorolac 10 mg tablet 10 mg PO Q8H 5 Days Qty: 15 0RF No Action albuterol sulfate 2.5 mg /3 mL (0.083 %) solution for nebulization 2.5 mg inhalation Q4-6H PRN (Reason: shortness of breath or wheezing) Qty: 75 0RF dexamethasone 6 mg Tablet 6 mg PO DAILY Qty: 5 0RF benzonatate 100 mg Capsule 100 mg PO TID PRN (Reason: Cough) Qty: 12 0RF oxycodone 5 mg tablet 5 mg PO TID PRN (Reason: pain) Qty: 15 0RF Rx Instructions: Partial Fill upon patient request. doxycycline hyclate 100 mg tablet 100 mg PO BID Qty: 20 0RF albuterol sulfate 2.5 mg /3 mL (0.083 %) solution for nebulization 2.5 mg inhalation Q4-6H PRN (Reason: shortness of breath or wheezing) Qty: 90 0RF prednisone 20 mg tablet 40 mg PO DAILY Qty: 10 0RF albuterol sulfate 90 mcg/actuation HFA aerosol inhaler 2 puff inhalation Q6H PRN (Reason: shortness of breath or wheezing) Qty: 8.5 0RF Referrals: [facility] [Provider Group] Physician,Unknown J [Primary Care Provider, Medical] Stand Alone Forms: Work/School Release Interventions: ED Discharge Assessment Last Done: 05/01/25 11:46 Discharge Date/Time: 05/01/25 11:46 Print Language: Mauritanian
[2025-05-01 11:46] VITALS: BP 143/81; PULSE 98; RESP 16; TEMP 36.9; O2SAT 95
--- OUTSIDE RECORDS SUMMARY | 2025-05-01 12:44 | XMS_ITS | Clinical Summary ---
Author Organization [facility] ity Address [address] [place] [address] Care Team Providers Care Office Nurse Name Role Phone Armand Parnell MD Primary Care Provider Allergies No known active allergies Medications albuterol 2.5 mg /3 mL (0.083 %) nebulizer solution TAKE 1 VIAL BY NEBULIZATION EVERY 6 HOURS NEEDED FOR WHEEZING OR COUGH. 3 Active albuterol HFA (PROAIR HFA ; PROVENTIL HFA ; VENTOLIN HFA) 90 mcg/actuation inhaler Inhale 2 Puffs into the lungs every 4 hours as needed for Cough, Wheezing or Shortness of Breath. 2 Active fluticasone HFA (FLOVENT HFA) 110 mcg/actuation inhaler Inhale 1 Puff into the lungs 2 times daily. 2 Active Active Problems Problem Noted Date Diagnosed Date Marijuana use 12/08/2021 Morbid obesity ([facility] V24, [facility] V28) 2017 Gastroesophageal reflux disease without esophagi tis 09/06/2017 Tobacco use disorder 09/06/2017 Uncomplicated asthma 09/06/2017 Immunizations Name Administration Dates Next Due Pneumococcal polysaccharide 23 valent (Pneumovax 23) 2yo and older 12/02/2017 Rabies, Unspecified 08/03/2020 Tdap Tetanus diptheria acell ular pertussis (Boostrix; Adacel) 7yo and older 08/02/2020,12/02/2017 Surgical History Surgery Date Site/Laterality Comments OTHER SURGICAL HISTORY PROCEDURE: DENIES PREVIOUS SURGERY Medical History Medical History Date Comments Uncomplicated asthma 09/06/2017 DX:Uncompli cated asthma Tobacco use disorder 09/06/2017 DX:Tobacco use disorder Morbid obesity ([facility] V24, [facility] V28) 018 DX:Morbid obesity (HCC) Family History Medical History Relation Name Comments ADD / ADHD Brother Breast cancer Mother late 30s Hypertension Mother Asthma Sister thyroid problem s Relation Name Status Comments Brother Mother Sister Social History Tobacco Use Types Packs/Day Years Used Date Smoking Tobacco: Former Cigarettes 0.3 15.4 0 10/17/2006 - 03/17/2022 Smokeless Tobacco: Never Alcohol Use Standard Drinks/Week Comments Yes 0 (1 standard drink = 0.6 oz pur e alcohol) Sex and Gender Information Value Date Recorded Sex Assigned at Not on file Legal Sex Male 4:36 AM EST Gender Identity Not on file Sexual Orientation Not on file Obstetrics History Last Filed Vital Signs Vital Sign Reading Time Taken Comments Blood Pressure 128/84 07/01/2022 1:21 PM EDT Pulse 93 07/01/2022 1:21 PM EDT Temperature - - Respiratory Rate - - Oxygen Saturation - - Inhaled Oxygen Concentration - - Weight 150 kg (331 lb) 07/01/2022 1:21 PM EDT Height 172.7 cm (5' 8 ) 07/01/2022 1:21 PM EDT Body Mass Index 50.33 07/01/2022 1:21 PM EDT Plan of Treatment Health Maintenance Due Date Last Done Comments Hepatitis B Vaccines (1 of 3 - 19+ 3-dose series) 2013 Pneumococcal Vaccine: Pediatrics (0 to 5 Years) and At-Risk Patients (6 to 49 Years) (2 of 2 - PCV) 12/02/2018 12/02/2017 Cholesterol Screening (Lipid Panel) 09/25/2022 09/06/2017 Depression Screening 09/25/2022 HIV Screening 09/25/2022 Hepatitis C Screening 09/25/2022 Social Influencers of Health Screening 09/25/2022 COVID-19 Vaccine (1 - 2023-2 5 season) 2024 Influenza Vaccine (#1) 2025 DTaP,Tdap,and Td Vaccines (3 - Td or Tdap) 08/02/2030 08/02/2020, 12/02/2017 HIB Vaccines Aged Out No longer eligi ble based on patient's age to complete this topic HPV Vaccines Aged Out No longer eligi ble based on patient's age to complete this topic Hepatitis A Vaccines Aged Out No long er eligible based on patient's age to complete this topic IPV Vaccines Aged Out No longer eligi ble based on patient's age to complete this topic MMR Vaccines Aged Out No longer eligi ble based on patient's age to complete this topic Meningococcal ACWY Vaccine Aged Out N o longer eligible based on patient's age to complete this topic Meningococcal B Vaccine Aged Out No l onger eligible based on patient's age to complete this topic RSV Immunization Patients Under 20 months Aged Out No longer eligible b ased on patient's age to complete this topic Varicella Vaccines Aged Out No longer eligible based on patient's age to complete this topic Procedures Procedure Name Priority Date/Time Associated Diagnosis Comments LIPID PANEL Routine 09/06/2017 from Last 3 Months or Most Recently Relevant to Health Maintenance Results * (ABNORMAL) Lipid panel (09/06/2017) LDL/HDL Ratio 5(A) 0 - 4 Triglycerides 145 0 - 150 mg/dL Cholesterol 157 0 - 200 mg/dL HDL 32(A) >=40 mg/dL LDL Cholesterol 96 0 - 100 mg/dL Blood Venous blood specimen / Unknown us Historical Provider LAB BLOOD ORDERABLES Kaye l Result from Last 3 Months or Most Recently Relevant to Health Maintenance Care Teams Office Nurse Relationship Specialty Start Date End Date Armand Parnell MD [address] [place] [address] PCP - General Internal Medicine 05/27/22
== END 2025-05-01 11:46 | disposition home or self-care (01) ==
PROVIDERS: Emergency Provider Emergency Medicine Emergency Medical Services
DX: K04.7 Periapical abscess without sinus (principal); K03.81 Cracked tooth
CPT/HCPCS: 96372; 99283; 99284; J1885

== ENCOUNTER 2025-05-20 10:49 | Inpatient (IN) | payer MEDICAID, SELFPAY ==
[2025-05-20] VITALS (14 sets, daily range): BP systolic 111–200; BP diastolic 71–94; PULSE 96–136; RESP 18–33; TEMP 36.1–37.7; O2SAT 93–98; BMI 45.9
--- NOTE | ~2025-05-20 | XR_ITS ---
EXAMINATION: XR CHEST 2 VIEWS HISTORY: SOB COMPARISON: Comparison is made with the prior examination dated 02/03/2025. Correlation is also made with a chest CT dated 11/05/2024. FINDINGS: PA and lateral views of the chest are submitted. Again seen are mild increased interstitial markings. An opacity in the right middle lobe is again seen, previously shown to represent bronchiectasis on CT. There may be increased airspace opacity in the right middle lobe when compared to the prior study, suggestive of pneumonia. There is no pleural effusion, pneumothorax, or pulmonary vascular congestion. The heart is normal in size. The bones are intact. XR/XR chest 2V IMPRESSION: Increased interstitial markings. Possible right middle lobe pneumonia superimposed upon chronic bronchiectasis. Electronically signed by: Loc Silva MD 05/20/2025 12:48 PM EDT
--- NOTE | ~2025-05-20 | CT_ITS ---
EXAMINATION: CT CHEST ANGIOGRAPHY WITH IV CONTRAST INDICATION: dyspnea COMPARISON: Comparison is made with the prior examination dated 11/07/2024. TECHNIQUE: Helical CT scan of the chest was performed following administration of intravenous contrast (65 mL Omnipaque 350). The contrast bolus was timed to optimally opacify the pulmonary arteries. Thin sections were obtained through the pulmonary arteries. Coronal and sagittal reformatted images were generated. 3D/MIP reconstructed images are also obtained and reviewed. This CT exam was performed with one or more of the following dose reduction techniques: automated exposure control, adjustment of the mA and/or kV according to patient size, use of iterative reconstruction technique. DLP: 468 mGy-cm CHEST: THYROID: The thyroid gland is unremarkable. PULMONARY ARTERIES: No intraluminal filling defects are identified within the pulmonary arteries to suggest pulmonary emboli. LUNGS: Again seen is marked bronchiectasis in the right middle lobe and moderate bronchiectasis in both lower lobes. There is diffuse bronchial wall thickening. There are patchy groundglass and nodular opacities throughout the lungs, which are likely inflammatory in nature. MEDIASTINUM: There is no mediastinal lymphadenopathy. ESTHELA: There are enlarged bilateral hilar lymph nodes measuring up to 1.4 cm on the right and 1.4 cm on the left. CARDIOVASCULATURE: The heart is normal in size. There is no pericardial effusion. The thoracic aorta is normal in caliber. DEGREE OF CORONARY CALCIFICATION: none PLEURA: There is no pleural effusion. No pneumothorax. MAIN AIRWAYS: The mainstem bronchi and proximal branches are patent. AXILLA: There is no axillary lymphadenopathy. UPPER ABDOMEN: The visualized portions of the liver, spleen, and adrenals are unremarkable. BONES AND SOFT TISSUES: Unremarkable. CT/CT angio chest PE protocol IMPRESSION: 1. No evidence of pulmonary emboli. 2. Marked bronchiectasis in the right middle lobe and moderate bronchiectasis in both lower lobes. Diffuse bronchial wall thickening and patchy groundglass and nodular opacities throughout both lungs compatible with bronchitis. 3. Bilateral hilar adenopathy. Electronically signed by: Loc Silva MD 05/20/2025 03:10 PM EDT
--- NOTE | ~2025-05-20 | XR_ITS ---
EXAMINATION: XR CHEST 2 VIEWS HISTORY: Leukocytosis COMPARISON: Comparison is made with the prior examination dated 05/20/2025. FINDINGS: PA and lateral views of the chest are submitted. There has been progression of airspace opacity in the right middle lobe at the site of previously seen marked bronchiectasis on CT. The left lung is clear. There is no pleural effusion, pneumothorax, or pulmonary vascular congestion. The heart is normal in size. The bones are intact. XR/XR chest 2V IMPRESSION: Known right middle lobe bronchiectasis. Increased airspace opacity likely represents superimposed pneumonia. Electronically signed by: Loc Silva MD 05/22/2025 10:19 AM EDT
--- NOTE | 2025-05-20 11:43 | ED_ITS ---
[facility] - General Adult General Chief complaint: Dyspnea Stated complaint: Sob, headache, chills Time Seen by Provider: 05/20/25 11:58 Source: patient Mode of arrival: ambulatory Limitations: no limitations History of Present Illness ED Provider: HPI narrative: 29-year-old male with a history of occasional tobacco use, marijuana use, in the beginning of this year was admitted with left-sided pleural effusion using aphasic pneumonia, presenting with worsening shortness of breath over the past 1 week but really has gotten worse in the past 1-2 days. He reports productive cough, you will has been using his [id number] medications and nebulizers without much relief. Related Data Previous Rx's ?Medication ?Instructions ?Recorded albuterol sulfate 2.5 mg/3 mL 2.5 mg (3 mL) inhalation Q4-6H PRN 11/02/24 (0.083 %) solution for nebulization shortness of breat h or wheezing #75 mL Allergies Allergy/AdvReac Type Severity Reaction Status Date / Time No Known Allergies (No Known Allergy Verified 05/20/25 11:45 Allergies*) Review of Systems 2 Constitutional: Constitutional: Reports as per [facility] Past Medical History Medical History COVID-19 Bronchiectasis Social History Social History Household Members: Family Housing: House Do you presently have visiting nurse or other home services: No Alcohol intake: current Alcohol intake frequency: 3 or more drinks per day Alcohol type: beer, wine and hard liquor Patient Tobacco Use Status: Former Tobacco user Smoked in Last 30 Days: No Second Hand Smoke Exposure: No Use of substances other than those prescribed or required for medical reasons: Yes Substance Use Type: Crack/Cocaine Advance Directives: No Advance Directives Information Provided: Yes Do you have a plan to hurt others: No Plan Nutrition Risks: No Nutritional Risk service: No Physical Exam ED Vital Signs: Vital Signs - 24 hr 05/20/25 11:43 05/20/25 11:56 05/20/25 12:13 Temperature 99.9 F Pulse Rate 130 H 136 H 125 H Respiratory Rate 22 H 28 H 22 H Blood Pressure 111/86 Pulse Oximetry 94 93 Oxygen Delivery Method Room Air Room Air 05/20/25 12:19 05/20/25 12:48 05/20/25 13:04 Temperature 98.4 F Pulse Rate 122 H 118 H 108 H Respiratory Rate 27 H 33 H 24 H Blood Pressure 139/94 H 132/71 Pulse Oximetry 95 96 95 Oxygen Delivery Method Room Air Room Air Room Air 05/20/25 13:54 Temperature Pulse Rate 105 H Respiratory Rate 25 H Blood Pressure Pulse Oximetry 97 Oxygen Delivery Method Room Air BMI result Body Mass Index 45.9 Const Other: * Gen: On well-appearing, diaphoretic * HEENT: P uvula midline, no tonsillar exudates * Neck: Supple, no LAD * CV: RRR, no obvious murmurs appreciated * Resp: Labored respirations, no rhonchi, upper wheezing * Abd: ?Bowel sounds are present, no tenderness no rebound no rigidity * MSK: FROM, strength 5/5 all extremities * Skin: Warm, dry, intact, * Neuro: ?Alert and oriented x3, moving upper and lower extremities symmetrically, no obvious facial asymmetry noted Course Course Course Narrative: RME performed by Skylar Duval PA-C. Patient is a 29 year old assigned male at presenting to the emergency department with shortness of breath, cough, and chills. Detailed physical exam and review of systems are deferred to the graphics editor. Imaging and swabs ordered. Patient placed back in the waiting room pending room availability and results. Medications Administered Generic Name Dose Route Start Last Admin Trade Name Freq PRN Reason Stop Dose Admin Albuterol/Ipratropium 3 ml 05/20/25 15:16 05/20/25 17:06 Albuterol/Iprat 2.5/0.5mg 3 Ml Ampul.Neb INHALE 3 ml Q4H PRN Administration Shortness of Breath/Wheezing Enoxaparin Sodium 40 mg 05/20/25 15:30 05/20/25 16:55 Enoxaparin Sodium 40 Mg/0.4 Ml Syringe SUBCUT Not Given Q24H SPEEDY Levofloxacin 750 mg 05/20/25 16:00 05/20/25 16:54 Levofloxacin 750 Mg Tablet PO 750 mg Q24H SPEEDY Administration Sodium Chloride 3 ml 05/20/25 16:00 05/20/25 16:54 0.9 % Sodium Chloride Flush 3 Ml Syringe IVFLUSH 3 ml QSHIFT SPEEDY Administration Discontinued Medications Generic Name Dose Route Start Last Admin Trade Name Pernell PRN Reason Stop Dose Admin Acetaminophen 975 mg 05/20/25 12:07 05/20/25 12:16 Acetaminophen 325 Mg Tablet PO 05/20/25 12:08 975 mg ONCE ONE Administration Ceftriaxone Sodium 2 gm 05/20/25 12:51 05/20/25 12:59 Ceftriaxone Sodium 2 Gm Vial IVPUSH 05/20/25 12:52 2 gm ONCE ONE Administration Levalbuterol HCl 2.5 mg/ 0 mg 05/20/25 12:08 05/20/25 12:[address] 0.5 mg INHALE 05/20/25 12:09 1 dose ONCE ONE Administration Sodium Chloride 1,000 mls @ 999 mls/hr 05/20/25 12:15 05/20/25 13:17 Ns IV 05/20/25 13:15 Infused .Q1H1M SPEEDY Infusion Iohexol 100 ml 05/20/25 14:31 05/20/25 14:32 Iohexol 350 Mg/Ml 100 Ml Infus..Btl IV 05/20/25 14:32 100 ml ONCE ONE Administration Methylprednisolone Sodium Succinate 125 mg 05/20/25 12:04 05/20/25 12:16 Methylprednisolone Sod Succ 125 Mg/2 Ml Vial IVPUSH 05/20/25 12:05 125 mg ONCE ONE Administration Medical Decision Making Medical Decision Making [facility] Narrative: 12:10 Anticipating admission and the patient unless he turns around quite a bit from initial presentation he is diaphoretic, labored breathing, considerations include ACS, pneumonia, CHF, PE, I do suspect he may have worsening of the asthma and maybe pneumonia with a fusion again, we will obtain cultures, lactate, we will continue to evaluate. 13:00 patient re-evaluated, discussed smoking cessation with him again, discussed chest x-ray findings, he is getting antibiotics, heart rate is beginning to come down, disposition to be determined 14:00 patient is still somewhat dyspneic, not hypoxic, speaking full sentences, we will obtain imaging such as CTA to evaluate for underlying infectious etiology but also PE, and we will admit. Differential Diagnosis Differential Diagnoses: The differential diagnosis associated with the presentation includes (CHF, COPD exacerbation, pneumonia, pneumothorax, ACS, PE,) Admission/Observation Consideration of admission/observation: Escalation of care including admission/observation considered 2022 Emergency Medicine Coding Guide from [employer] on 05/20/2025 All calculations should be rechecked by clinician prior to use RESULT SUMMARY: 5 Estimated Level of Service Problems: Moderate (4) Risk: High (5) Data: Extensive (5) NARRATIVE MDM: This patient's problem complexity is Moderate as patient: has a new undiagnosed problem with uncertain prognosis but that could be serious. This patient's risk is High due to: overall presentation requiring evaluation for a potentially High-risk process. This patient's data complexity is Extensive due to: -multiple tests ordered/reviewed -external notes reviewed -independent interpretation of imaging or EKG -discussion of management/testing with external professional INPUTS: Number and Complexity ?> 5 = 4: undiagnosed new problem, uncertain outcome (e) Risk level ?> 4 = High Tests ordered ?> 3 = >= Tests results reviewed (excluding labs) ?> 2 = 2 Prior external notes reviewed ?> 1 = 1 Assessment requiring and independent historian ?> 0 = No Independent interpretation of tests ?> 1 = Yes Discussed management/test interpretation w/external professional ?> 1 = Yes Lab Data [facility] Lab Attestation statement: I reviewed the patient's lab results. 05/20/25 12:11 05/20/25 12:11 Labs: Lab Results 05/20/25 05/20/25 Range/Units 12:11 12:22 WBC 19.9 H (4.8-10.8) X10*3/uL RBC 4.88 (4.60-5.80) X10*6/uL Hgb 13.7 L (14.0-18.0) g/dl Hct 40.9 L (42.0-52.0) % MCV 83.8 (80.0-98.0) fL MCH 28.1 (27.0-33.0) pg MCHC 33.5 (31.0-36.0) g/dl RDW 13.5 (11.0-16.0) % Plt Count 352 (160-400) X10*3/uL MPV 9.5 (9.4-12.4) fL Immature Gran % (Auto) 0.5 H (0.0-0.4) % Neut % (Auto) 88.3 H (45-73) % Lymph % (Auto) 4.8 L (20-40) % [place] % (Auto) 5.5 (2-11) % Eos % (Auto) 0.5 (0-4) % Baso % (Auto) 0.4 (0-2) % Lymph # (Auto) 1.0 L (1.2-4.9) X10*3/uL [place] # (Auto) 1.1 (0.1-1.2) X10*3/uL Eos # (Auto) 0.1 (0.0-0.4) X10*3/uL Baso # (Auto) 0.1 (0.0-0.2) X10*3/uL Abs Immat Gran (auto) 0.10 H (0.00-0.03) X10*3/uL Absolute Neuts (auto) 17.5 H (2.0-8.3) x10*3/uL Absolute Nucleated RBC 0.000 (0.0-0.012) X10*3/uL Nucleated RBC % (auto) 0.0 (0.0-0.2) /100WBC VBG pH 7.44 H (7.32-7.43) VBG pCO2 39 mmHg VBG pO2 69 mmHg VBG HCO3 27 H (22-26) mmol/L VBG O2 Saturation 93.0 % VBG Base Excess 3.1 mmol/L Sodium 141 (135-145) mmol/L Potassium 3.8 (3.3-5.1) mmol/L Chloride 105 (96-108) mmol/L Carbon Dioxide 27 (22-29) mmol/L Anion Gap 13 (12-20) BUN 7 L (9-16) mg/dL Creatinine 0.96 (0.5-1.4) mg/dL Estim Creat Clear Calc 162.1 Estimated GFR > 60 Random Glucose 115 (60-115) mg/dL Lactic Acid 1.2 (0.5-2.0) mmol/L Calcium 9.4 (8.4-10.2) mg/dL Magnesium 1.8 (1.6-2.6) mg/dL Total Bilirubin 0.8 (0.0-1.0) mg/dL AST 18 (5-37) U/L ALT 13 (0-40) U/L Alkaline Phosphatase 97 (39-117) U/L Troponin I High Sens 9.4 D (<3.5-35.0) ng/L B-Natriuretic Peptide 69 (<100) pg/mL Total Protein 8.2 H (6.5-8.0) g/dL Albumin 4.4 (3.5-5.0) g/dL Influenza Type A (PCR) NEGATIVE (Negative) Influenza Type B (PCR) NEGATIVE (Negative) RSV RNA Qual (PCR) NEGATIVE (Negative) SARS-CoV-2 RNA (RT-PCR) NEGATIVE (Negative) ABG Data Attestation ABG: I personally reviewed and interpreted this ABG as follows: (VBG unremarkable) Independent Interpretation I performed an independent interpretation of an: EKG and Plain X-Ray (Right lower lobe consolidation, there was no effusion compared to prior chest x-ray that he has had left-sided pleural effusion) Radiology Impression Discussion of test interpretation with radiology: I have reviewed the radiologist's reading. (Increased interstitial markings. Possible right middle lobe pneumonia superimposed upon chronic bronchiectasis.) External Record Review External record reviewed: Inpatient record Prescription Management I considered prescription management with: Antibiotic Chronic Conditions Patient?s care impacted by: Other (Asthma) Critical Care Time Critical Care Time Critical Care Time: Yes Total Critical Care Time: 45 Attestation: Time is exclusive of separately billable procedures. Time includes: direct patient care, patient reassessment, coordination of patient care, interpretation of data (laboratory data, pulse oximetry, arterial blood gases and chest xrays), review of patient's medical records, medical consultation and documentation of patient care. Procedures excluded from critical care time: central intravenous line placement and electrocardiography. Discharge Plan Discharge Clinical Impression: Asthma with exacerbation Community acquired pneumonia Qualifiers: Laterality: right Lung location: lower lobe of lung Qualified Code(s): J18.9 - Pneumonia, unspecified organism Patient Disposition: Admitted As Inpatient Interventions: Admission Worksheet (ED) Last Done: 05/20/25 18:01
[2025-05-20] MEDS: levalbuterol HCL 2.5 MG, Ipratropium Bromide 0.5 MG INHALE (12:13)
[2025-05-20 12:19] LABS: MANUAL DIFF FLAG NO
[2025-05-20 12:22] LABS: Hematocrit 40.9 % (42.0-52.0); Hemoglobin 13.7 g/dl (14.0-18.0); Imm Gran Abs Auto 0.10 X10*3/uL (0.00-0.03); Imm Gran Pct Auto 0.5 % (0.0-0.4); Lymphocytes Absolute Auto 1.0 X10*3/uL (1.2-4.9); Mean Corpuscular HGB Conc 33.5 g/dl (31.0-36.0); Mean Corpuscular Hemoglobin 28.1 pg (27.0-33.0); Mean Corpuscular Volume 83.8 fL (80.0-98.0); NRBC Abs Auto 0.000 X10*3/uL (0.0-0.012); NRBC Pct Auto 0.0 /100WBC (0.0-0.2); Platelet Count 352 X10*3/uL (160-400); Red Blood Count 4.88 X10*6/uL (4.60-5.80); White Blood Count 19.9 X10*3/uL (4.8-10.8)
[2025-05-20 12:27] LABS: VBG HCO3 27 mmol/L (22-26); VBG O2 % Saturation 93.0 %
[2025-05-20 12:28] LABS: Venous Blood Gas Refer to POC result
[2025-05-20 12:36] LABS: Magnesium 1.8 mg/dL (1.6-2.6)
[2025-05-20 12:37] LABS: Alanine Aminotransferase 13 U/L (0-40); Albumin Level 4.4 g/dL (3.5-5.0); Alkaline Phosphatase 97 U/L (39-117); Anion Gap 13 (12-20); Aspartate Amino Transferase 18 U/L (5-37); Blood Urea Nitrogen 7 mg/dL (9-16); Calcium 9.4 mg/dL (8.4-10.2); Carbon Dioxide 27 mmol/L (22-29); Chloride 105 mmol/L (96-108); Creatinine Clr Calc Pharmacy 162.1; Estimated Glomerular Filt Rate > 60; Potassium 3.8 mmol/L (3.3-5.1); Sodium 141 mmol/L (135-145); Total Protein 8.2 g/dL (6.5-8.0)
[2025-05-20 12:42] LABS: B Type Natriuretic Peptide 69 pg/mL (<100)
[2025-05-20 12:46] LABS: Troponin-I High Sensitivity 9.4 ng/L (<3.5-35.0)
--- OUTSIDE RECORDS SUMMARY | 2025-05-20 12:50 | XMS_ITS ---
Author Name [facility] Organization Unknown Care Team Organization Name Specialty Phone Email Start Date End Da te [facility] Armand Parnell Primary Care 12/22/202205/17 [facility] Violet Sylvester MD Primary Care 08/24/2022 06/04/2024
--- OUTSIDE RECORDS SUMMARY | 2025-05-20 12:50 | XMS_ITS | Clinical Summary ---
Author Organization [facility] ity Address [address] [place] [address] Care Team Providers Care Threader Name Role Phone Armand Parnell MD Primary [...] Diagnosed Date Marijuana use 12/08/2021 Morbid obesity ([facility] V24, [facility] V28) 2017 Gastroesophageal reflux disease [...] disorder 09/06/2017 DX:Tobacco use disorder Morbid obesity ([facility] V24, [facility] V28) 018 DX:Morbid obesity (HCC) Family History [...] 12/02/2017 Cholesterol Screening (Lipid Panel) 09/25/2022 09/06/2017 HIV Screening 09/25/2022 Hepatitis C Screening 09/25/2022 Social Influencers of Health Screening 09/25/2022 COVID-19 Vaccine (1 - 2023-2 5 season) 2024 Depression Screening 10/17/2024 Influenza Vaccine (#1) 2025 DTaP,Tdap,and Td Vaccines [...] Recently Relevant to Health Maintenance Care Teams Threader Relationship Specialty Start Date End Date Armand Parnell MD [address] [place] [address] PCP - General Internal Medicine 05/27/22
--- NOTE | 2025-05-20 12:52 | ECG_ITS ---
Test Reason : dyspnea Blood Pressure : */* mmHG Vent. Rate : 104 BPM Atrial Rate : 104 BPM P-R Int : 160 ms QRS Dur : 100 ms QT Int : 344 ms P-R-T Axes : * 134 155 degrees QTcB Int : 452 ms Sinus tachycardia Incomplete right bundle branch block Left posterior fascicular block Possible Inferior infarct , age undetermined Abnormal ECG When compared with ECG of 02-Nov-2024 00:37, Left posterior fascicular block is now Present Non-specific change in ST segment in Lateral leads Referred By: Rupesh Davis Electronically Signed By: IRENE RIVERA
[2025-05-20 13:00] LABS: Resp Syncy Virus RNA Qual PCR NEGATIVE (Negative); SARS COV2 PCR INHOUSE NEGATIVE (Negative)
[2025-05-20] MEDS: iohexoL 350 MG/ML 100 ML INFUS..BTL IV (14:32)
--- NOTE | 2025-05-20 15:18 | PM.IMHP ---
History of Present Illness Date of Service: 05/20/25 Chief Complaint: RLL PNA 29-year-old male with past medical history of asthma, left-sided eosinophilic pneumonia with pleural effusion requiring pig tail in October, no other pertinent medical history, no surgical history. Presented to the ED after reporting feeling sick for 2 days, shortness of breath and productive cough worsened this morning, patient walked to [facility] from [facility] in [place] and presented to the ED for evaluation. Patient reports he started feeling short of breath yesterday, started using his nebulizer treatments and did not improve so he came today for further care. Patient reports that he smokes 2-3 cigarettes a day, but has heavy marijuana use 4-5 blunts per day. Patient with no sick contacts. Works at [employer]. Does not take any home medications. Occasional cocaine use, occasional heavy drinking. Patient reports that he has never withdrawn from alcohol. Patient has a productive cough yellow sputum, on presentation had leukocytosis to 19.9, lactic acid within normal limits. negative flu RSV and COVID. Chest x-ray demonstrated increased interstitial markings with a possible right middle lobe pneumonia superimposed upon chronic bronchiectasis. CT of the chest demonstrated no evidence of pulmonary emboli, marked bronchiectasis in the right middle lobe and both lower lobes, diffuse bronchial wall thickening and patchy ground-glass and nodular opacities through both lungs compatible with bronchitis, patient also demonstrated bilateral hilar adenopathy. On exam he is markedly short of breath, speaking in full sentences. On sounds with diffuse wheezing throughout, heart rate regular, skin diaphoretic, no temp at time of exam 98.4. While in the ED patient received Solu-Medrol 125, Tylenol, updraft nebulizer, and ceftriaxone 2 grams. Review of Systems Review of Systems: +shortness of breath, + Cough, No chest pain, dizziness, lightheadedness, abdominal pain or discomfort, nausea vomiting or diarrhea PMFSH Medical History COVID-19 Bronchiectasis Social History Household Members: Family Housing: House Do you presently have visiting nurse or other home services: No Alcohol intake: current Alcohol intake frequency: 3 or more drinks per day Alcohol type: beer, wine and hard liquor Patient Tobacco Use Status: Former Tobacco user Smoked in Last 30 Days: No Second Hand Smoke Exposure: No Use of substances other than those prescribed or required for medical reasons: Yes Substance Use Type: Crack/Cocaine Advance Directives: No Advance Directives Information Provided: Yes Do you have a plan to hurt others: No Plan service: No Meds Allergies Allergy/AdvReac Type Severity Reaction Status Date / Time No Known Allergies (No Known Allergy Verified 05/20/25 11:45 Allergies*) Active Medications: Current Medications Doxycycline Monohydrate (Doxycycline Monohydrate 100 Mg Capsule) 100 mg PO Q12H SPEEDY Methylprednisolone Sodium Succinate (Methylprednisolone Sod Succ 40 Mg/Ml Vial) 40 mg IVPUSH Q12H SPEEDY Physical Exam Vital Signs and Narrative: Vital Signs: Last Vital Signs Temp 98.4 F 05/20/25 12:48 Pulse 105 H 05/20/25 13:54 Resp 25 H 05/20/25 13:54 BP 132/71 05/20/25 13:04 Pulse Ox 97 05/20/25 13:54 O2 Del Method Room Air 05/20/25 13:54 BMI result Body Mass Index 45.9 CONST: Alert and oriented, in NAD. Well nourished HEENT: Normocephalic, atraumatic, MMM, Eyes clear, Neck supple RESP: Lungs with wheezing throughout, tachypnea, Slight increased WOB, speaking in full sentences. HEART:,RRR, S1, S2, no edema GI:Abdomen Soft NT, ND. + BS times four. Obese abdomen :Deferred SKIN: Warm dry and intact, no visible lesions or rashes. Skin diaphoretic NEURO:CN II-XII Intact bilaterally, Sensation intact. Speech clear PSYCH: Normal affect, pleasany and cooperative, Results Labs 05/20/25 12:11 05/20/25 12:11 Labs: Laboratory Results - last 24 hr 05/20/25 05/20/25 12:11 12:22 MCV 83.8 MCH 28.1 MCHC 33.5 RDW 13.5 Plt Count 352 MPV 9.5 Immature Gran % (Auto) 0.5 H Neut % (Auto) 88.3 H Lymph % (Auto) 4.8 L [place] % (Auto) 5.5 Eos % (Auto) 0.5 Baso % (Auto) 0.4 Lymph # (Auto) 1.0 L [place] # (Auto) 1.1 Eos # (Auto) 0.1 Baso # (Auto) 0.1 Abs Immat Gran (auto) 0.10 H Absolute Neuts (auto) 17.5 H Absolute Nucleated RBC 0.000 Nucleated RBC % (auto) 0.0 VBG pH 7.44 H VBG pCO2 39 VBG pO2 69 VBG HCO3 27 H VBG O2 Saturation 93.0 VBG Base Excess 3.1 Anion Gap 13 Estim Creat Clear Calc 162.1 Estimated GFR > 60 Random Glucose 115 Lactic Acid 1.2 Calcium 9.4 Magnesium 1.8 Total Bilirubin 0.8 AST 18 ALT 13 Alkaline Phosphatase 97 B-Natriuretic Peptide 69 Total Protein 8.2 H Albumin 4.4 Influenza Type A (PCR) NEGATIVE Influenza Type B (PCR) NEGATIVE RSV RNA Qual (PCR) NEGATIVE SARS-CoV-2 RNA (RT-PCR) NEGATIVE Imaging Radiologist's Impressions: Impressions Chest X-Ray 05/20/25 11:41 IMPRESSION: Increased interstitial markings. Possible right middle lobe pneumonia superimposed upon chronic bronchiectasis. Electronically signed by: Loc Silva MD 05/20/2025 12:48 PM EDT RP Chest CTA 05/20/25 14:22 IMPRESSION: 1. No evidence of pulmonary emboli. 2. Marked bronchiectasis in the right middle lobe and moderate bronchiectasis in both lower lobes. Diffuse bronchial wall thickening and patchy groundglass and nodular opacities throughout both lungs compatible with bronchitis. 3. Bilateral hilar adenopathy. Electronically signed by: Loc Silva MD 05/20/2025 03:10 PM EDT RP Assessment and Plan (1) Community acquired pneumonia: Qualifiers: Laterality: right Lung location: lower lobe of lung Qualified Code(s): J18.9 - Pneumonia, unspecified organism Status: Acute (2) Asthma with exacerbation: Status: Acute Plan 29-year-old male with a past medical history of asthma, presented with shortness of breath, fever and chills. Found to have a right lower lobe pneumonia. Will admit for Community acquired RLL. Community acquired right lower lobe pneumonia Presented with cough and Shortness of breath. Lab work revealed leukocytosis of 19.9, negative flu, RSV and Covid Not hypoxic, initially tachycardic on admission, improved. Start Levaquin. Solumedrol BID CTA chest negative for pulmonary embolism. Patient has increased interstitial markings, bilateral hilar adenopathy. Pulmonology consult Asthma with exacerbation due to CAP Asthma since infancy Not on any maintenance medications Discussed smoking cessation with patient. CODE status:FULL CODE DVT Prophylaxis: Lovenox. Quality Stroke Does the patient have a stroke diagnosis?: No VTE Prior VTE?: No VTE Risk Level:: Medical - moderate - high VTE Device Contraindication: Treatment Not Indicated VTE Drug Contraindication: N/A - Med Ordered
--- NOTE | 2025-05-20 15:21 | PHA.MEDREC ---
Addendum entered by Dorothy Leija RPh 05/20/25 15:32: Reviewed by [facility] Original Note: Pharmacy Consult ? Medication Reconciliation Pharmacy has completed the medication reconciliation. Patient states he is only taking Albuterol Sulfate 2.5 mg nebulizer.
--- NOTE | 2025-05-20 15:38 | PC.NURSE ---
Report called to NICOLETTE Grullon in overflow
--- NOTE | 2025-05-20 16:28 | PC.NURSE ---
Assumed care of this patient upon transfer to Overflow unit, patient immediately asking to shower. Supplies given, IV's secured, patient able to walk w/ a steady gait to and from shower. Patient initially hypertensive upon presentation to unit, will recheck vitals after shower.
[2025-05-20] MEDS: 0.9 % Sodium Chloride Flush 3 ML SYRINGE IVFLUSH ×2 (16:54→22:43)
[2025-05-20] MEDS: Albuterol/Iprat 2.5/0.5MG 3 ML AMPUL.NEB INHALE ×3 (17:06→21:46)
[2025-05-21] VITALS (11 sets, daily range): BP systolic 135–176; BP diastolic 79–109; PULSE 79–94; RESP 16–18; TEMP 36.2–36.5; O2SAT 94–96
--- NOTE | 2025-05-21 04:39 | PC.NURSE ---
RT called for breathing tx.
[2025-05-21 05:30] LABS: Hematocrit 40.3 % (42.0-52.0); Hemoglobin 13.2 g/dl (14.0-18.0); Imm Gran Abs Auto 0.14 X10*3/uL (0.00-0.03); Imm Gran Pct Auto 0.8 % (0.0-0.4); Lymphocytes Absolute Auto 0.7 X10*3/uL (1.2-4.9); MANUAL DIFF FLAG SCAN; Mean Corpuscular HGB Conc 32.8 g/dl (31.0-36.0); Mean Corpuscular Hemoglobin 27.3 pg (27.0-33.0); Mean Corpuscular Volume 83.4 fL (80.0-98.0); NRBC Abs Auto 0.000 X10*3/uL (0.0-0.012); NRBC Pct Auto 0.0 /100WBC (0.0-0.2); Platelet Count 358 X10*3/uL (160-400); Red Blood Count 4.83 X10*6/uL (4.60-5.80); SCAN SMEAR FLAG 1; White Blood Count 17.7 X10*3/uL (4.8-10.8)
[2025-05-21 05:44] LABS: Anion Gap 13 (12-20); Blood Urea Nitrogen 18 mg/dL (9-16); Calcium 9.5 mg/dL (8.4-10.2); Carbon Dioxide 26 mmol/L (22-29); Chloride 106 mmol/L (96-108); Creatinine Clr Calc Pharmacy 199.5; Estimated Glomerular Filt Rate > 60; Magnesium 2.0 mg/dL (1.6-2.6); Potassium 4.1 mmol/L (3.3-5.1); Sodium 141 mmol/L (135-145)
--- NOTE | 2025-05-21 06:44 | PC.NURSE ---
md aware of bp no new orders.
[2025-05-21] MEDS: 0.9 % Sodium Chloride Flush 3 ML SYRINGE IVFLUSH ×3 (09:07→21:33)
--- NOTE | 2025-05-21 10:45 | P.PNIM_ITS ---
Subjective Subjective Date of Service: 05/21/25 Interval History: Patient was seen and examined, continues with cough and wheeze. Per nursing his blood pressures have been elevated. Patient reports that he is feeling less short of breath than yesterday. Work of breathing is improved. Review of Systems Denies any shortness of breath, chest pain, dizziness, lightheadedness, abdominal pain or discomfort, nausea vomiting or diarrhea Physical Exam 2 Exam: Exam: CONST: Alert and oriented, in NAD. Well nourished HEENT: Normocephalic, atraumatic, MMM, Eyes clear, Neck supple RESP: Lungs exp wheezing. Speaking in full sentences, no increase WOB. No tachypnea HEART:,RRR, S1, S2, no edema GI:Abdomen Soft NT, ND. + BS times four. Obese abdomen :Deferred SKIN: Warm dry and intact, no visible lesions or rashes. NEURO:CN II-XII Intact bilaterally, Sensation intact. Speech clear PSYCH: Normal affect, pleasant and cooperative, Vital Signs: Vital Signs: Last Vital Signs Temp 97.6 F 05/21/25 08:56 Pulse 88 05/21/25 08:56 Resp 18 05/21/25 08:56 BP 168/80 H 05/21/25 08:56 Pulse Ox 94 05/21/25 08:56 O2 Del Method Room Air 05/21/25 08:56 BMI result Body Mass Index 45.9 Objective Data Active Medications Acetaminophen (Acetaminophen 325 Mg Tablet) 650 mg PO Q6H PRN PRN Reason: Pain, Mild 1-3,fever,headache Last Admin: 05/20/25 21:07 Dose: 650 mg Documented By: DITOLC Albuterol/Ipratropium (Albuterol/Iprat 2.5/0.5mg 3 Ml Ampul.Neb) 3 ml INHALE Q4H PRN PRN Reason: Shortness of Breath/Wheezing Last Admin: 05/20/25 21:46 Dose: 3 ml Documented By: EDDIESOK Benzonatate (Benzonatate 100 Mg Capsule) 100 mg PO TID PRN PRN Reason: Cough Last Admin: 05/21/25 09:27 Dose: 100 mg Documented By: RAMILA Calcium Carbonate (Calcium Carbonate 750 Mg Tab.Chew) 750 mg PO Q4H PRN PRN Reason: Heartburn Enoxaparin Sodium (Enoxaparin Sodium 40 Mg/0.4 Ml Syringe) 40 mg SUBCUT Q24H [facility] Last Admin: 05/20/25 16:55 Dose: Not Given Documented By: TON Non-Admin Reason: Patient Refused Levofloxacin (Levofloxacin 750 Mg Tablet) 750 mg PO Q24H [facility] Last Admin: 05/20/25 16:54 Dose: 750 mg Documented By: JAIMETOLC Magnesium Hydroxide (Milk Of Magnesia 30 Ml Oral.Susp) 30 ml PO DAILY PRN PRN Reason: Constipation Melatonin (Melatonin 3 Mg Tablet) 6 mg PO BEDTIME PRN PRN Reason: Insomnia Last Admin: 05/20/25 21:07 Dose: 6 mg Documented By: JAIMETOJANETTE Methylprednisolone Sodium Succinate (Methylprednisolone Sod Succ 40 Mg/Ml Vial) 40 mg IVPUSH Q12H [facility] Last Admin: 05/20/25 22:43 Dose: 40 mg Documented By: JAIMETOJANETTE Ondansetron HCl (Ondansetron Hcl 4 Mg/2 Ml Vial) 4 mg IVPUSH Q8H PRN PRN Reason: Nausea and Vomiting Sodium Chloride (0.9 % Sodium Chloride Flush 3 Ml Syringe) 3 ml IVFLUSH QSHIFT [facility] Last Admin: 05/21/25 09:07 Dose: 3 ml Documented By: BEIT Labs 05/21/25 04:24 05/21/25 04:24 Labs: Laboratory Results - last 24 hr 05/20/25 05/20/25 05/21/25 12:11 12:22 04:24 MCV 83.8 83.4 MCH 28.1 27.3 MCHC 33.5 32.8 RDW 13.5 13.8 Plt Count 352 358 MPV 9.5 10.0 Immature Gran % (Auto) 0.5 H 0.8 H Neut % (Auto) 88.3 H 92.5 H Lymph % (Auto) 4.8 L 4.1 L [place] % (Auto) 5.5 2.1 Eos % (Auto) 0.5 0.3 Baso % (Auto) 0.4 0.2 Lymph # (Auto) 1.0 L 0.7 L [place] # (Auto) 1.1 0.4 Eos # (Auto) 0.1 0.1 Baso # (Auto) 0.1 0.0 Abs Immat Gran (auto) 0.10 H 0.14 H Absolute Neuts (auto) 17.5 H 16.4 H Absolute Nucleated RBC 0.000 0.000 Nucleated RBC % (auto) 0.0 0.0 Smear Tech's Comments VERIFIED VBG pH 7.44 H VBG pCO2 39 VBG pO2 69 VBG HCO3 27 H VBG O2 Saturation 93.0 VBG Base Excess 3.1 Anion Gap 13 13 Estim Creat Clear Calc 162.1 199.5 Estimated GFR > 60 > 60 Random Glucose 115 149 H Lactic Acid 1.2 Calcium 9.4 9.5 Magnesium 1.8 2.0 Total Bilirubin 0.8 AST 18 ALT 13 Alkaline Phosphatase 97 B-Natriuretic Peptide 69 Total Protein 8.2 H Albumin 4.4 Influenza Type A (PCR) NEGATIVE Influenza Type B (PCR) NEGATIVE RSV RNA Qual (PCR) NEGATIVE SARS-CoV-2 RNA (RT-PCR) NEGATIVE 05/21/25 04:24 MCV MCH MCHC RDW Plt Count MPV Immature Gran % (Auto) Neut % (Auto) Lymph % (Auto) [place] % (Auto) Eos % (Auto) Baso % (Auto) Lymph # (Auto) [place] # (Auto) Eos # (Auto) Baso # (Auto) Abs Immat Gran (auto) Absolute Neuts (auto) Absolute Nucleated RBC Nucleated RBC % (auto) Smear Tech's Comments VBG pH VBG pCO2 VBG pO2 VBG HCO3 VBG O2 Saturation VBG Base Excess Anion Gap Estim Creat Clear Calc Estimated GFR Random Glucose Lactic Acid Calcium Magnesium Cancelled Total Bilirubin AST ALT Alkaline Phosphatase B-Natriuretic Peptide Total Protein Albumin Influenza Type A (PCR) Influenza Type B (PCR) RSV RNA Qual (PCR) SARS-CoV-2 RNA (RT-PCR) Assessment and Plan (1) Asthma exacerbation: Status: Resolved (2) Pleural effusion, left: Status: Resolved Plan 29-year-old male with a past medical history of asthma, presented with shortness of breath, fever and chills. Found to have a right lower lobe pneumonia. Admitted for Community acquired RLL and asthma exacerbation. Community acquired right lower lobe pneumonia Presented with cough and Shortness of breath. Lab work revealed leukocytosis of 19.9, negative flu, RSV and Covid Not hypoxic, initially tachycardic on admission, improved. Continue Levaquin Solumedrol BID-Transition to Prednisone on DC CTA chest negative for pulmonary embolism. Robitussin for cough, scheduled nebulizers Asthma with exacerbation due to CAP Asthma since infancy Not on any maintenance medications- Start Airsupra 2 puffs BID when discharged. Discussed smoking cessation with patient. Elevated blood pressure readings without diagnosis of hypertension Patient noted to have elevated blood pressure readings, he reports this happens when he sick. He does not wish to start any blood pressure medications at this time. Would like to follow up with his primary care doctor. Discussed at length diet and exercise. CODE status:FULL CODE DVT Prophylaxis: Lovenox. Quality Stroke Does the patient have a stroke diagnosis?: No VTE Prior VTE?: No VTE Risk Level:: Medical - moderate - high VTE Device Contraindication: Treatment Not Indicated VTE Drug Contraindication: N/A - Med Ordered
[2025-05-21] MEDS: guaiFENesin 200 MG/10 ML 10 ML LIQUID PO ×2 (11:34→21:32)
[2025-05-21] MEDS: Albuterol/Iprat 2.5/0.5MG 3 ML AMPUL.NEB INHALE ×5 (11:35→23:44)
--- NOTE | 2025-05-21 12:56 | PM.CNPUL ---
History of Present Illness History of Present Illness Consult date: 05/21/25 Chief complaint: RLL PNA Narrative: 29-year-old gentleman active approximately 10 pack-year smoker, also smokes marijuana admitted on 05/20/2025 with shortness of breath and cough with CT chest showing bronchiectasis untreated on acute exacerbation. Today with significantly improved respiratory status. Also, appears to have underlying reactive airway disease. Review of Systems Constitutional: Constitutional: Denies daytime sleepiness, Denies excessive sweating, Denies fatigue, Denies fever(s), Denies lethargy, Denies malaise, Denies night sweats, Denies snoring and Denies weight loss Eyes: Eyes: Denies blurry vision and Denies itchy eyes ENT: Denies nasal congestion, Denies post nasal drip, Denies sinus pain, Denies sinus pressure and Denies other ( Thrush) Cardiovascular: Cardiovascular: Denies chest pain, Denies pedal edema, Denies dyspnea, Denies orthopnea and Denies paroxysmal nocturnal dyspnea Respiratory: Respiratory: Reports cough, Denies hemoptysis, Reports excessive phlegm production, Denies dyspnea, Denies snoring and Denies wheezing Gastrointestinal: Gastrointestinal: Denies abdominal pain and Denies heartburn Musculoskeletal: Musculoskeletal: Denies myalgias, Denies arthralgias and Denies joint swelling Integumentary/Breasts: Skin/Breast: Denies rash Neurologic: Denies memory loss and Denies seizure-like activity Psychiatric: Psychiatric: Denies abnormal sleep pattern, Denies anxiety and Denies memory loss Endocrine: Endocrine: Denies excessive sweating, Denies fatigue and Denies heat intolerance Hematologic/Lymphatic: Hematologic/Lymphatic: Denies easy bruising Allergic/Immunologic: Allergic/Immunologic: Denies itchy eyes, Denies seasonal rhinorrhea and Denies wheezing PMFSH Past Medical History Medical History (Updated 05/21/25 @ 13:20 by Talat Carmichael MD) Bronchiectasis Asthma Asthma COVID-19 Social History Social History Household Members: Other Household Members Other:: homless Housing: Homeless Do you presently have visiting nurse or other home services: No Alcohol intake: current Alcohol intake frequency: 3 or more drinks per day Alcohol type: beer, wine and hard liquor Patient Tobacco Use Status: Former Tobacco user Smoked in Last 30 Days: No Second Hand Smoke Exposure: No Use of substances other than those prescribed or required for medical reasons: Yes Substance Use Type: Crack/Cocaine Have you been hit, kicked, punched, or otherwise hurt by someone within the past year? If so, by whom?: No Do you feel safe in your current relationship?: No Current Relationship Is there a partner from a previous relationship who is making you feel unsafe now?: No Are you made to feel afraid or neglected: No Advance Directives: No Advance Directives Information Provided: Yes Do you have a plan to hurt others: No Plan Recently lost weight without trying: No Nutrition Risks: No Nutritional Risk service: No Meds Allergies Allergy/AdvReac Type Severity Reaction Status Date / Time No Known Allergies (No Known Allergy Verified 05/20/25 11:45 Allergies*) Active Medications: Current Medications Acetaminophen (Acetaminophen 325 Mg Tablet) 650 mg PO Q6H PRN PRN Reason: Pain, Mild 1-3,fever,headache Last Admin: 05/20/25 21:07 Dose: 650 mg Albuterol/Ipratropium (Albuterol/Iprat 2.5/0.5mg 3 Ml Ampul.Neb) 3 ml INHALE RQ6H WHILE AWAKE [facility] Albuterol/Ipratropium (Albuterol/Iprat 2.5/0.5mg 3 Ml Ampul.Neb) 3 ml INHALE QID PRN PRN Reason: Shortness of Breath/Wheezing Last Admin: 05/21/25 11:35 Dose: 3 ml Calcium Carbonate (Calcium Carbonate 750 Mg Tab.Chew) 750 mg PO Q4H PRN PRN Reason: Heartburn Enoxaparin Sodium (Enoxaparin Sodium 40 Mg/0.4 Ml Syringe) 40 mg SUBCUT Q24H [facility] Last Admin: 05/20/25 16:55 Dose: Not Given Guaifenesin (Guaifenesin 200 Mg/10 Ml 10 Ml Liquid) 10 ml PO Q4H PRN PRN Reason: Cough Last Admin: 05/21/25 11:34 Dose: 10 ml Levofloxacin (Levofloxacin 750 Mg Tablet) 750 mg PO Q24H [facility] Last Admin: 05/20/25 16:54 Dose: 750 mg Magnesium Hydroxide (Milk Of Magnesia 30 Ml Oral.Susp) 30 ml PO DAILY PRN PRN Reason: Constipation Melatonin (Melatonin 3 Mg Tablet) 6 mg PO BEDTIME PRN PRN Reason: Insomnia Last Admin: 05/20/25 21:07 Dose: 6 mg Methylprednisolone Sodium Succinate (Methylprednisolone Sod Succ 40 Mg/Ml Vial) 40 mg IVPUSH Q12H [facility] Last Admin: 05/21/25 11:13 Dose: 40 mg Ondansetron HCl (Ondansetron Hcl 4 Mg/2 Ml Vial) 4 mg IVPUSH Q8H PRN PRN Reason: Nausea and Vomiting Sodium Chloride (0.9 % Sodium Chloride Flush 3 Ml Syringe) 3 ml IVFLUSH QSHIFT [facility] Last Admin: 05/21/25 09:07 Dose: 3 ml Physical Exam Vital Signs: Vital Signs: Last Vital Signs Temp 97.6 F 05/21/25 08:56 Pulse 86 05/21/25 11:36 Resp 18 05/21/25 11:36 BP 168/80 H 05/21/25 08:56 Pulse Ox 94 05/21/25 08:56 O2 Del Method Room Air 05/21/25 08:56 BMI result Body Mass Index 45.9 Const: General: no acute distress and alert Nutritional Appearance: obese Orientation/consciousness: Other orientation findings ( oriented) HEENT: Head: Yes atraumatic Eyes: General: appearance normal, both eyes and all related structures Sclerae: sclerae normal EOM: EOMs intact bilaterally Neck: Neck: Yes supple Lymphatic: no lymphadenopathy noted Resp: Effort & Inspection: normal respiratory effort and no use of accessory muscles Auscultation: clear to auscultation bilaterally Cardio: Rate: regular rate Rhythm: regular rhythm Heart sounds: no gallops, no murmurs and no rubs Skin: General skin exam: other ( warm) Extrem: General: No clubbing, No cyanosis and No edema Results Laboratory Findings 05/21/25 04:24 05/21/25 04:24 Abnormal lab findings: Abnormal Labs 05/20/25 05/20/25 05/21/25 12:11 12:22 04:24 WBC 19.9 H 17.7 H Hgb 13.7 L 13.2 L Hct 40.9 L 40.3 L Immature Gran % (Auto) 0.5 H 0.8 H Neut % (Auto) 88.3 H 92.5 H Lymph % (Auto) 4.8 L 4.1 L Lymph # (Auto) 1.0 L 0.7 L Abs Immat Gran (auto) 0.10 H 0.14 H Absolute Neuts (auto) 17.5 H 16.4 H VBG pH 7.44 H VBG HCO3 27 H BUN 7 L 18 H Random Glucose 149 H Total Protein 8.2 H Assessment and Plan (1) Bronchiectasis: Status: Acute (2) Asthma: Status: Acute Plan Impression: 29-year-old gentleman with underlying bronchiectasis and asthma admitted with dyspnea secondary to exacerbation of underlying bronchiectasis/asthma, now improving on empiric therapy. Recommendations: Agree with current regimen including respiratory quinolone, systemic glucocorticoids, and nebulized bronchodilators. Continue to titrate off systemic glucocorticoids. Would benefit if discharged on ics/[place]. Would benefit from further outpatient pulmonary follow-up. Procedures Date of Service Date of Service: 05/21/25
--- NOTE | 2025-05-21 14:56 | PC.NURSE ---
patient refused Lovenox,risks explained,encouraged activity,FREIGHT HUSTLER Malathi Condon notified
--- NOTE | 2025-05-21 16:13 | MHC.CM.PN ---
PATIENT REPORTS HE IS UNHOUSED - HAS BEEN COUCH SURFING AT [employer]. FUNCTIONALLY INDEPENDENT. 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 DOES NOT CURRENTLY HAVE A PCP NO HCP. CM PROVIDED EDUCATION AND OFFERED ASSISTANCE. + THRIVE. RESOURCE GUIDE PROVIDED. 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 HE IS CURRENTLY WORKING ON FINDING A ROOM TO RENT. HE HAS STAYED AT [facility] IN THE PAST, BUT HAS HAD BELONGINGS STOLEN, SO IS NOT INTERESTED IN PRISON PLACEMENT AT THIS TIME. HE HAS 3 YOUNG DAUGHTERS THAT HE STAYS WITH ON THE WEEKEND. DP: RETURN TO [employer] SURFING. WILL NEED ASSIST W/ TRANSPORT. CM WILL CONTINUE TO FOLLOW.
[2025-05-22] VITALS (10 sets, daily range): BP systolic 132–155; BP diastolic 78–92; PULSE 68–91; RESP 16–20; TEMP 36.1–36.8; O2SAT 94–99
[2025-05-22] MEDS: guaiFENesin 200 MG/10 ML 10 ML LIQUID PO ×2 (03:21→09:10)
[2025-05-22] MEDS: Albuterol/Iprat 2.5/0.5MG 3 ML AMPUL.NEB INHALE ×4 (03:58→19:40)
[2025-05-22 08:58] LABS: MANUAL DIFF FLAG NO
[2025-05-22 09:02] LABS: Hematocrit 37.6 % (42.0-52.0); Hemoglobin 12.2 g/dl (14.0-18.0); Imm Gran Abs Auto 0.18 X10*3/uL (0.00-0.03); Imm Gran Pct Auto 0.9 % (0.0-0.4); Lymphocytes Absolute Auto 1.4 X10*3/uL (1.2-4.9); Mean Corpuscular HGB Conc 32.4 g/dl (31.0-36.0); Mean Corpuscular Hemoglobin 27.5 pg (27.0-33.0); Mean Corpuscular Volume 84.7 fL (80.0-98.0); NRBC Abs Auto 0.000 X10*3/uL (0.0-0.012); NRBC Pct Auto 0.0 /100WBC (0.0-0.2); Platelet Count 340 X10*3/uL (160-400); Red Blood Count 4.44 X10*6/uL (4.60-5.80); White Blood Count 19.6 X10*3/uL (4.8-10.8)
[2025-05-22] MEDS: 0.9 % Sodium Chloride Flush 3 ML SYRINGE IVFLUSH ×3 (09:06→20:11)
[2025-05-22 09:15] LABS: Anion Gap 12 (12-20); Blood Urea Nitrogen 16 mg/dL (9-16); Calcium 8.8 mg/dL (8.4-10.2); Carbon Dioxide 24 mmol/L (22-29); Chloride 110 mmol/L (96-108); Creatinine Clr Calc Pharmacy 213.1; Estimated Glomerular Filt Rate > 60; Potassium 4.4 mmol/L (3.3-5.1); Sodium 142 mmol/L (135-145)
--- NOTE | 2025-05-22 10:58 | HO.PM.IMPN ---
Subjective Subjective Date of Service: 05/22/25 Interval History: Patient is seen and examined, less short of breath. WBC continues to be elevated. Patient reports pain in his ribs from coughing. Continues with cough, respiratory therapy giving him nebulizer treatments continues on Levaquin, tested positive for MRSA screen, we will add doxycycline. Continue Solu-Medrol. Review of Systems Denies any shortness of breath, chest pain, dizziness, lightheadedness, abdominal pain or discomfort, nausea vomiting or diarrhea Physical Exam Exam: Exam: CONST: Alert and oriented, in NAD. Well nourished HEENT: Normocephalic, atraumatic, MMM, Eyes clear, Neck supple RESP: Lungs clear and diminished, RRR even and regular. No increased work of breathing HEART:,RRR, S1, S2. no edema GI:Abdomen Soft NT, ND. + BS times four :Deferred SKIN: Warm dry and intact, no visible lesions or rashes NEURO:CN II-XII Intact bilaterally, Sensation intact. Speech clear PSYCH: Normal affect Vital Signs: Vital Signs: Last Vital Signs Temp 97.1 F 05/22/25 07:08 Pulse 91 05/22/25 07:48 Resp 16 05/22/25 07:48 BP 145/92 H 05/22/25 07:08 Pulse Ox 99 05/22/25 07:08 O2 Del Method Room Air 05/22/25 07:08 BMI result Body Mass Index 45.9 Objective Data Active Medications Acetaminophen (Acetaminophen 325 Mg Tablet) 650 mg PO Q6H PRN PRN Reason: Pain, Mild 1-3,fever,headache Last Admin: 05/22/25 09:04 Dose: 650 mg Documented By: RAMILA Albuterol/Ipratropium (Albuterol/Iprat 2.5/0.5mg 3 Ml Ampul.Neb) 3 ml INHALE RQ6H WHILE AWAKE [facility] Last Admin: 05/22/25 07:48 Dose: 3 ml Documented By: TAMMI Albuterol/Ipratropium (Albuterol/Iprat 2.5/0.5mg 3 Ml Ampul.Neb) 3 ml INHALE Q2H PRN PRN Reason: Shortness of Breath/Wheezing Last Admin: 05/22/25 03:58 Dose: 3 ml Documented By: HO.WOJTASS Benzonatate (Benzonatate 100 Mg Capsule) 200 mg PO TID PRN PRN Reason: Cough Calcium Carbonate (Calcium Carbonate 750 Mg Tab.Chew) 750 mg PO Q4H PRN PRN Reason: Heartburn Enoxaparin Sodium (Enoxaparin Sodium 40 Mg/0.4 Ml Syringe) 40 mg SUBCUT Q24H [facility] Last Admin: 05/21/25 14:50 Dose: Not Given Documented By: RAMILA Non-Admin Reason: Patient Refused Guaifenesin (Guaifenesin 200 Mg/10 Ml 10 Ml Liquid) 10 ml PO Q4H PRN PRN Reason: Cough Last Admin: 05/22/25 09:10 Dose: 10 ml Documented By: RAMILA Ketorolac Tromethamine (Ketorolac Tromethamine 15 Mg/Ml Vial) 15 mg IM Q6H PRN PRN Reason: Pain, Moderate(Pain Scale 4-6) Stop: 05/24/25 10:52 Levofloxacin (Levofloxacin 750 Mg Tablet) 750 mg PO Q24H [facility] Last Admin: 05/21/25 14:52 Dose: 750 mg Documented By: RAMILA Magnesium Hydroxide (Milk Of Magnesia 30 Ml Oral.Susp) 30 ml PO DAILY PRN PRN Reason: Constipation Melatonin (Melatonin 3 Mg Tablet) 6 mg PO BEDTIME PRN PRN Reason: Insomnia Last Admin: 05/20/25 21:07 Dose: 6 mg Documented By: JAIMETOJANETTE Methylprednisolone Sodium Succinate (Methylprednisolone Sod Succ 40 Mg/Ml Vial) 40 mg IVPUSH Q12H [facility] Last Admin: 05/22/25 10:33 Dose: 40 mg Documented By: RAMILA Ondansetron HCl (Ondansetron Hcl 4 Mg/2 Ml Vial) 4 mg IVPUSH Q8H PRN PRN Reason: Nausea and Vomiting Sodium Chloride (0.9 % Sodium Chloride Flush 3 Ml Syringe) 3 ml IVFLUSH QSHIFT [facility] Last Admin: 05/22/25 09:06 Dose: 3 ml Documented By: RAMILA Labs 05/22/25 08:46 05/22/25 08:46 Labs: Laboratory Results - last 24 hr 05/22/25 08:46 MCV 84.7 MCH 27.5 MCHC 32.4 RDW 14.1 Plt Count 340 MPV 9.5 Immature Gran % (Auto) 0.9 H Neut % (Auto) 86.2 H Lymph % (Auto) 7.2 L [place] % (Auto) 5.5 Eos % (Auto) 0.0 Baso % (Auto) 0.2 Lymph # (Auto) 1.4 [place] # (Auto) 1.1 Eos # (Auto) 0.0 Baso # (Auto) 0.0 Abs Immat Gran (auto) 0.18 H Absolute Neuts (auto) 16.9 H Absolute Nucleated RBC 0.000 Nucleated RBC % (auto) 0.0 Anion Gap 12 Estim Creat Clear Calc 213.1 Estimated GFR > 60 Random Glucose 134 H Calcium 8.8 D Microbiology Microbiology Results: Microbiology 05/20/25 12:11 Blood Culture - Preliminary Blood - Venous No growth after 24 hours. 05/20/25 12:11 Blood Culture - Preliminary Blood - Venous No growth after 24 hours. Assessment and Plan (1) Asthma exacerbation: Status: Resolved (2) Pleural effusion, left: Status: Resolved Plan 29-year-old male with a past medical history of asthma, presented with shortness of breath, fever and chills. Found to have a right lower lobe pneumonia. Admitted for Community acquired RLL and asthma exacerbation. Community acquired right lower lobe pneumonia Presented with cough and Shortness of breath. Lab work revealed leukocytosis of 19.9, negative flu, RSV and Covid Not hypoxic, initially tachycardic on admission, improved. Continue Levaquin. Add Doxy for +MRSA screen, procalcitonin WNL. Solumedrol BID-Transition to Prednisone on DC CTA chest negative for pulmonary embolism. Preliminary blood cultures with no growth. Robitussin for cough, scheduled nebulizers, Toradol for pain for 2 days Repeat Chest xray due to increased fatigue and diminished breath sounds, wheezing improved. Asthma with exacerbation due to CAP Asthma since infancy Not on any maintenance medications- Start Airsupra 2 puffs BID when discharged. Discussed smoking cessation with patient. Elevated blood pressure readings without diagnosis of hypertension Patient noted to have elevated blood pressure readings, he reports this happens when he sick. He does not wish to start any blood pressure medications at this time. Would like to follow up with his primary care doctor. Discussed at length diet and exercise. CODE status:FULL CODE DVT Prophylaxis: Lovenox. Quality Stroke Does the patient have a stroke diagnosis?: No VTE Prior VTE?: No VTE Risk Level:: Medical - moderate - high VTE Device Contraindication: Treatment Not Indicated VTE Drug Contraindication: N/A - Med Ordered
[2025-05-22 11:47] LABS: Procalcitonin 0.04 ng/mL
[2025-05-22 12:43] LABS: MRSA Nasal PCR POSITIVE (Negative); SA Nasal PCR POSITIVE (Negative)
--- NOTE | 2025-05-22 13:20 | MHC.CM.PN ---
Patient not medically cleared for dc. CM will continue to follow.
[2025-05-23] VITALS (7 sets, daily range): BP systolic 140–169; BP diastolic 86–106; PULSE 72–94; RESP 18–20; TEMP 36.1–36.4; O2SAT 94–97
[2025-05-23] MEDS: guaiFENesin 200 MG/10 ML 10 ML LIQUID PO ×2 (04:13→19:08)
--- NOTE | 2025-05-23 04:24 | PC.NURSE ---
pt BP 169/104. Provider Yuriy notified.
[2025-05-23] MEDS: 0.9 % Sodium Chloride Flush 3 ML SYRINGE IVFLUSH (08:00)
[2025-05-23] MEDS: Albuterol/Iprat 2.5/0.5MG 3 ML AMPUL.NEB INHALE ×3 (08:00→20:14)
--- NOTE | 2025-05-23 08:18 | P.PNIM_ITS ---
Subjective Subjective Date of Service: 05/23/25 Interval History: Patient is seen and examined, breathing is improved. He denies any shortness of breath, dizziness or lightheadedness. Patient's WBC continues to be elevated at 18.9, continues on doxycycline and Levaquin. We will DC Solu-Medrol. Plan for discharge tomorrow. Continue nebulizers Review of Systems Denies any shortness of breath, chest pain, dizziness, lightheadedness, abdominal pain or discomfort, nausea vomiting or diarrhea Physical Exam 2 Exam: Exam: CONST: Alert and oriented, in NAD. Well nourished HEENT: Normocephalic, atraumatic RESP: Lungs clear, RRR even and regular HEART:,RRR, S1, S2. no edema GI:Abdomen Soft NT, ND. + BS times four :Deferred SKIN: Warm dry and intact, no visible lesions or rashes NEURO:CN II-XII Intact bilaterally, Sensation intact. Speech clear PSYCH: Normal affect Vital Signs: Vital Signs: Last Vital Signs Temp 97.3 F 05/23/25 07:36 Pulse 93 05/23/25 07:36 Resp 20 05/23/25 07:36 BP 152/90 H 05/23/25 07:36 Pulse Ox 97 05/23/25 07:36 O2 Del Method Room Air 05/23/25 07:36 BMI result Body Mass Index 45.9 Objective Data Active Medications Acetaminophen (Acetaminophen 325 Mg Tablet) 650 mg PO Q6H PRN PRN Reason: Pain, Mild 1-3,fever,headache Last Admin: 05/23/25 00:05 Dose: 650 mg Documented By: SERGIO Albuterol/Ipratropium (Albuterol/Iprat 2.5/0.5mg 3 Ml Ampul.Neb) 3 ml INHALE RQ6H WHILE AWAKE SPEEDY Last Admin: 05/23/25 08:00 Dose: 3 ml Documented By: JOSE Albuterol/Ipratropium (Albuterol/Iprat 2.5/0.5mg 3 Ml Ampul.Neb) 3 ml INHALE Q2H PRN PRN Reason: Shortness of Breath/Wheezing Last Admin: 05/22/25 03:58 Dose: 3 ml Documented By: BRYANT Benzonatate (Benzonatate 100 Mg Capsule) 200 mg PO TID PRN PRN Reason: Cough Calcium Carbonate (Calcium Carbonate 750 Mg Tab.Chew) 750 mg PO Q4H PRN PRN Reason: Heartburn Doxycycline Monohydrate (Doxycycline Monohydrate 100 Mg Capsule) 100 mg PO Q12H [facility] Last Admin: 05/23/25 01:56 Dose: 100 mg Documented By: SERGIO Enoxaparin Sodium (Enoxaparin Sodium 40 Mg/0.4 Ml Syringe) 40 mg SUBCUT Q24H [facility] Last Admin: 05/22/25 14:00 Dose: Not Given Documented By: RAMILA Non-Admin Reason: Patient Refused Guaifenesin (Guaifenesin 200 Mg/10 Ml 10 Ml Liquid) 10 ml PO Q4H PRN PRN Reason: Cough Last Admin: 05/23/25 04:13 Dose: 10 ml Documented By: SERGIO Ketorolac Tromethamine (Ketorolac Tromethamine 15 Mg/Ml Vial) 15 mg IVPUSH Q6H PRN PRN Reason: Pain, Moderate(Pain Scale 4-6) Stop: 05/24/25 10:52 Last Admin: 05/23/25 04:14 Dose: 15 mg Documented By: SERGIO Levofloxacin (Levofloxacin 750 Mg Tablet) 750 mg PO Q24H [facility] Last Admin: 05/22/25 15:02 Dose: 750 mg Documented By: RAMILA Magnesium Hydroxide (Milk Of Magnesia 30 Ml Oral.Susp) 30 ml PO DAILY PRN PRN Reason: Constipation Melatonin (Melatonin 3 Mg Tablet) 6 mg PO BEDTIME PRN PRN Reason: Insomnia Last Admin: 05/20/25 21:07 Dose: 6 mg Documented By: TON Methylprednisolone Sodium Succinate (Methylprednisolone Sod Succ 40 Mg/Ml Vial) 40 mg IVPUSH Q12H [facility] Last Admin: 05/22/25 22:50 Dose: 40 mg Documented By: SERGIO Ondansetron HCl (Ondansetron Hcl 4 Mg/2 Ml Vial) 4 mg IVPUSH Q8H PRN PRN Reason: Nausea and Vomiting Sodium Chloride (0.9 % Sodium Chloride Flush 3 Ml Syringe) 3 ml IVFLUSH QSHIFT [facility] Last Admin: 05/23/25 08:00 Dose: 3 ml Documented By: JOSE Zavala 05/23/25 12:25 05/22/25 08:46 Labs: Laboratory Results - last 24 hr 05/22/25 05/22/25 08:46 11:15 MCV 84.7 MCH 27.5 MCHC 32.4 RDW 14.1 Plt Count 340 MPV 9.5 Immature Gran % (Auto) 0.9 H Neut % (Auto) 86.2 H Lymph % (Auto) 7.[address] [place] % (Auto) 5.5 Eos % (Auto) 0.0 Baso % (Auto) 0.2 Lymph # (Auto) 1.4 [place] # (Auto) 1.1 Eos # (Auto) 0.0 Baso # (Auto) 0.0 Abs Immat Gran (auto) 0.18 H Absolute Neuts (auto) 16.9 H Absolute Nucleated RBC 0.000 Nucleated RBC % (auto) 0.0 Anion Gap 12 Estim Creat Clear Calc 213.1 Estimated GFR > 60 Random Glucose 134 H Calcium 8.8 D Procalcitonin 0.04 Nasal Screen MRSA (PCR) POSITIVE A Nasal S. aureus Screen POSITIVE A Nasal MRSA/S.aureus Interp SEE NOTE Microbiology Microbiology Results: Microbiology 05/20/25 12:11 Blood Culture - Preliminary Blood - Venous No growth after 48 hours. 05/20/25 12:11 Blood Culture - Preliminary Blood - Venous No growth after 48 hours. Assessment and Plan (1) Asthma exacerbation: Status: Resolved (2) Community acquired pneumonia: Status: Acute Plan 29-year-old male with a past medical history of asthma, presented with shortness of breath, fever and chills. Found to have a right lower lobe pneumonia. Admitted for Community acquired RLL and asthma exacerbation. Community acquired right lower lobe pneumonia Presented with cough and Shortness of breath. Lab work revealed leukocytosis of 19.9, negative flu, RSV and Covid Not hypoxic, initially tachycardic on admission, improved. Continue Levaquin. Add Doxy for +MRSA screen, procalcitonin WNL. DC solumedrol, wheezing resolved CTA chest negative for pulmonary embolism. Blood cultures no growth after 48 hours Robitussin for cough, scheduled nebulizers, Overall improving, plan for DC Asthma with exacerbation due to CAP Asthma since infancy Not on any maintenance medications- Start Airsupra 2 puffs BID when discharged. Discussed smoking cessation with patient. Elevated blood pressure readings without diagnosis of hypertension Patient noted to have elevated blood pressure readings, he reports this happens when he sick. He does not wish to start any blood pressure medications at this time. Would like to follow up with his primary care doctor. Discussed at length diet and exercise. CODE status:FULL CODE DVT Prophylaxis: Lovenox. Has been refusing Quality Stroke Does the patient have a stroke diagnosis?: No VTE Prior VTE?: No VTE Risk Level:: Medical - moderate - high VTE Device Contraindication: Treatment Not Indicated VTE Drug Contraindication: N/A - Med Ordered
[2025-05-23 12:38] LABS: Hematocrit 39.1 % (42.0-52.0); Hemoglobin 12.4 g/dl (14.0-18.0); Imm Gran Abs Auto 0.30 X10*3/uL (0.00-0.03); Imm Gran Pct Auto 1.6 % (0.0-0.4); Lymphocytes Absolute Auto 3.0 X10*3/uL (1.2-4.9); MANUAL DIFF FLAG SCAN; Mean Corpuscular HGB Conc 31.7 g/dl (31.0-36.0); Mean Corpuscular Hemoglobin 27.3 pg (27.0-33.0); Mean Corpuscular Volume 86.1 fL (80.0-98.0); NRBC Abs Auto 0.000 X10*3/uL (0.0-0.012); NRBC Pct Auto 0.0 /100WBC (0.0-0.2); Platelet Count 325 X10*3/uL (160-400); Red Blood Count 4.54 X10*6/uL (4.60-5.80); SCAN SMEAR FLAG 1; White Blood Count 18.9 X10*3/uL (4.8-10.8)
[2025-05-24] MEDS: 0.9 % Sodium Chloride Flush 3 ML SYRINGE IVFLUSH (00:26)
[2025-05-24] MEDS: guaiFENesin 200 MG/10 ML 10 ML LIQUID PO (00:26)
[2025-05-24 03:31] VITALS: BP 189/95; PULSE 84; RESP 18; TEMP 36.3; O2SAT 94
[2025-05-24] MEDS: Albuterol/Iprat 2.5/0.5MG 3 ML AMPUL.NEB INHALE (06:12)
[2025-05-24 06:14] VITALS: PULSE 94; RESP 20; O2SAT 96
[2025-05-24 07:51] VITALS: BP 150/80; PULSE 92; RESP 20; TEMP 36.3; O2SAT 93
--- NOTE | 2025-05-24 08:11 | PM.DS ---
DS: Providers Provider Date of Service: 05/24/25 Date of admission: 05/20/25 14:34 Date of discharge: 05/24/25 Primary care physician: Unknown Physician Admitting clinician: Alexis Arshad Consults: 05/20/25 14:50 Consult to Pulmonology Routine Consulting Provider: [facility] Reason for consultation: ? 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 Presented to the ED after reporting feeling sick for 2 days, shortness of breath and productive cough worsened this morning, patient walked to [facility] from [facility] in [place] and presented to the ED for evaluation. On presentation had leukocytosis to 19.9, lactic acid within normal limits. negative flu RSV and COVID. Chest x-ray demonstrated increased interstitial markings with a possible right middle lobe pneumonia superimposed upon chronic bronchiectasis. CT of the chest demonstrated no evidence of pulmonary emboli, marked bronchiectasis in the right middle lobe and both lower lobes, diffuse bronchial wall thickening and patchy ground-glass and nodular opacities through both lungs compatible with bronchitis, patient also demonstrated bilateral hilar adenopathy. While in the ED patient received Solu-Medrol 125, Tylenol, updraft nebulizer, and ceftriaxone 2 grams. During hospital course patient was treated with Solumedrol BID, UDN, Received Levaquin and doxycycline added for + MRSA screen. His blood pressure is elevated, patient did not wish to start HTN medication wanted to follow up outpatient with new PCP. Patient was seen by pulmonology and will need follow up out patient. Patient's white blood cell count elevated likely due to steroids, patient clinically improved, no fevers, blood cultures negative, no hypoxia. Status at Discharge Overall status at discharge: patient is progressing back to baseline Time Attestation Discharge Coordination Time (in mins): 30 Quality: Safe Use of Opioids Does Pt have an Active Cancer Diagnosis on the Problem List?: No Quality: Stroke Does the patient have a stroke diagnosis?: No Physical Exam Exam: Exam: CONST: Alert and oriented, in NAD. Well nourished HEENT: Normocephalic, atraumatic RESP: Lungs with occasional wheezing, RRR even and regular. No increased WOB HEART:,RRR, S1, S2. no edema GI:Abdomen Soft NT, ND. + BS times four :Deferred SKIN: Warm dry and intact, no visible lesions or rashes NEURO:CN II-XII Intact bilaterally, Sensation intact. Speech clear PSYCH: Normal affect Vital Signs: Vital Signs: Last Vital Signs Temp 97.4 F 05/24/25 07:51 Pulse 92 05/24/25 07:51 Resp 20 05/24/25 07:51 BP 150/80 H 05/24/25 07:51 Pulse Ox 93 05/24/25 07:51 O2 Del Method Room Air 05/24/25 07:51 BMI result Body Mass Index 45.9 DS: Data Data Completed and Pending Completed studies during hospitalization [Text1]: Procedures Labs on day of discharge: Laboratory Results - last 24 hr 05/23/25 12:25 WBC 18.9 H RBC 4.54 L Hgb 12.4 L Hct 39.1 L MCV 86.1 MCH 27.3 MCHC 31.7 RDW 14.2 Plt Count 325 MPV 9.4 Immature Gran % (Auto) 1.6 H Neut % (Auto) 73.5 H Lymph % (Auto) 15.7 L [place] % (Auto) 8.7 Eos % (Auto) 0.2 Baso % (Auto) 0.3 Lymph # (Auto) 3.0 [place] # (Auto) 1.6 H Eos # (Auto) 0.0 Baso # (Auto) 0.1 Abs Immat Gran (auto) 0.30 H Absolute Neuts (auto) 13.9 H Absolute Nucleated RBC 0.000 Nucleated RBC % (auto) 0.0 Smear Tech's Comments VERIFIED Preliminary micro results at discharge 05/20/25 12:11 Blood Culture - Preliminary Blood - Venous No growth after 48 hours. 05/20/25 12:11 Blood Culture - Preliminary Blood - Venous No growth after 48 hours. Discharge Plan Discharge Anticipated Discharge Date/Time: 05/24/25 09:12 Patient Disposition: Home, Self-Care Discharge Diagnosis: Community acquired PNA, Asthma exacerbation Referrals: Physician,Unknown J [Primary Care Provider, Medical] - 1 Week Discharge Medications: New acetaminophen 325 mg Tablet 650 mg PO Q6H PRN (Reason: Pain, Mild 1-3,Fever,Headache) Qty: 30 0RF guaifenesin 100 mg/5 mL Liquid 200 mg PO Q4H PRN (Reason: Cough) Qty: 240 0RF benzonatate 100 mg Capsule 200 mg PO TID PRN (Reason: Cough) Qty: 30 0RF doxycycline monohydrate 100 mg Capsule 100 mg PO Q12H Qty: 5 0RF levofloxacin 750 mg Tablet 750 mg PO Q24H Qty: 6 0RF Airsupra 90-80 mcg/actuation HFA aerosol inhaler 2 inh inhalation BID Qty: 10.7 0RF Continued albuterol sulfate 2.5 mg /3 mL (0.083 %) solution for nebulization 2.5 mg inhalation Q4-6H PRN (Reason: shortness of breath or wheezing) Qty: 75 0RF Discharge Orders: Discharge Order (Routine); Ordered 05/24/25 Ordered By: Malathi Condon Diet: Advance to usual diet Activity on Discharge: As tolerated Stand Alone Forms: Patient Portal Discharge page Print Language: [place] Care Plan Goals: Recovery from Asthma exacerbation Community acquired PNA Health Concerns: Asthma with acute exacerbation Community acquired PNA Plan of Treatment: As below Assessment: Community acquired right lower lobe pneumonia/Asthma with exacerbation due to CAP Continue Levaquin for a total of 10 days. Continue doxycycline twice a day for 7 days. Continue albuterol as needed Tessalon Perles for cough, robitussin as needed Follow up with pulmonology. [facility] [phone] Start Airsupra 2 puffs BID when discharged. Smoking cessation Elevated blood pressure readings without diagnosis of hypertension Patient noted to have elevated blood pressure readings during hospital stay. Follow up with Primary care Continue with dietary changes and exercise Patient Instructions: How to Stop Smoking (DC), Moderate and Severe Persistent Asthma (DC), Pneumonia (DC), Prehypertension (Elevated Blood Pressure) (GEN)
[2025-05-24 11:02] VITALS: BP 140/82; PULSE 100; RESP 18; TEMP 36.1; O2SAT 99
--- NOTE | 2025-05-24 11:15 | MHC.CM.PN ---
Patient medically cleared for dc, self care. Continues to decline fpc placement. Will transport to a friend's house via Ly[employer].
--- NOTE | 2025-05-31 18:43 | P.CDIM_ITS ---
PROVIDER RESPONSE TEXT: To clarify, the appropriate diagnosis supported by the clinical indicators: Moderate persistent: with exacerbation QUERY TEXT: PHYSICIAN'S DOCUMENTATION REQUEST Date of Query: 05/21/2025 09:47 AM EDT Patient Name: Pravin Ferrera Admit Date: 05/20/2025 Dear Alexis Arshad MD, A review of the medical record indicates additional documentation may be needed. Please review below and update the documentation accordingly. The diagnosis of asthma was documented in the record on 05/20/25. Additional clinical indicators from the record include: Asthma since infancy smoker Based on the above, please clarify in the Progress Notes further specificity regarding the type and acuity of the asthma: Mild intermittent Please specify if with or without acute exacerbation or status asthmaticus Mild persistent Please specify if with or without acute exacerbation or status asthmaticus Moderate persistent Please specify if with or without acute exacerbation or status asthmaticus Severe persistent Please specify if with or without acute exacerbation or status asthmaticus Exercise induced Please specify if with or without acute exacerbation or status asthmaticus Chronic obstructive asthma and indicate if with acute lower respiratory infection Please specify if with or without acute exacerbation or status asthmaticus Asthma with underlying COPD and indicate if with acute lower respiratory infection Please specify if with or without acute exacerbation or status asthmaticus Other (explain) Clinically unable to determine (explain) Thank you, Jesusita Burgess RN Use of terms such as suspected, likely, concern for, or probable (associated with a specific diagnosis that is being evaluated, monitored, or treated as if it exists) are acceptable and can be coded in the inpatient setting, when documented at the time of discharge. Please use your independent medical judgment in providing your response. THIS QUERY IS PART OF THE PERMANENT MEDICAL RECORD
== END 2025-05-24 11:35 | disposition home or self-care (01) | DRG 140 ==
LOC: HO.ED 12:12 → HO.EDOVER 14:40 → HO.S3 05-21 07:27
PROVIDERS: Physician Assistant Medical; Admitting Provider Nurse Practitioner Family; Emergency Provider Emergency Medicine; Visit Provider Nurse Practitioner Family
DX: J47.0 Bronchiectasis with acute lower respiratory infection (principal); J18.9 Pneumonia, unspecified organism; J45.41 Moderate persistent asthma with (acute) exacerbation; J47.1 Bronchiectasis with (acute) exacerbation; R03.0 Elevated blood-pressure reading, without diagnosis of hypertension; Z20.822 Contact with and (suspected) exposure to COVID-19; Z22.322 Carrier or suspected carrier of Methicillin resistant Staphylococcus aureus; Z87.891 Personal history of nicotine dependence; Z59.02 Unsheltered homelessness; Z79.899 Other long term (current) drug therapy
CPT/HCPCS: 36415; 71046; 71275; 80048; 80053; 82803; 83605; 83735; 83880; 84145; 84484; 85025; 87040; 87637; 87640; 87641; 93005; 94640; 99285; J0696; J1885; J2919; Q9967

== ENCOUNTER → 2025-05-20 11:43 | Outpatient (BNV) | payer MEDICAID, SELFPAY | PROVIDERS: Emergency Provider Emergency Medicine; Visit Provider Radiology Diagnostic Radiology | DX: J47.9 Bronchiectasis, uncomplicated (principal); R59.0 Localized enlarged lymph nodes | CPT/HCPCS: 71046; 71275 ==

== ENCOUNTER → 2025-05-20 12:52 | Outpatient (BNV) | payer MEDICAID, SELFPAY | PROVIDERS: Admitting Provider Nurse Practitioner Family; Emergency Provider Emergency Medicine; Visit Provider Internal Medicine | DX: I44.5 Left posterior fascicular block (principal); I45.10 Unspecified right bundle-branch block; R00.0 Tachycardia, unspecified | CPT/HCPCS: 93010 ==

== ENCOUNTER 2025-05-20 14:34 | Outpatient (BNV) | payer MEDICAID, SELFPAY | END 2025-05-22 08:51 | PROVIDERS: Admitting Provider Nurse Practitioner Family; Emergency Provider Emergency Medicine; Visit Provider Radiology Diagnostic Radiology | DX: J47.9 Bronchiectasis, uncomplicated (principal) | CPT/HCPCS: 71046 ==

== ENCOUNTER → 2025-05-20 14:34 | Outpatient (BNV) | payer MEDICAID, SELFPAY | PROVIDERS: Admitting Provider Nurse Practitioner Family; Emergency Provider Emergency Medicine; Visit Provider Internal Medicine Pulmonary Disease | DX: J47.9 Bronchiectasis, uncomplicated (principal); J45.909 Unspecified asthma, uncomplicated | CPT/HCPCS: 99222 ==

== ENCOUNTER → 2025-05-20 14:34 | Outpatient (BNV) | payer MEDICAID, SELFPAY | PROVIDERS: Admitting Provider Nurse Practitioner Family; Emergency Provider Emergency Medicine; Visit Provider Nurse Practitioner Family | DX: J45.901 Unspecified asthma with (acute) exacerbation (principal); J18.9 Pneumonia, unspecified organism | CPT/HCPCS: 99223; 99231; 99232; 99238 ==

== ENCOUNTER 2025-07-30 18:50 | Emergency (ER) | payer MEDICAID, SELFPAY ==
[2025-07-30 19:10] VITALS: BP 155/104; PULSE 100; RESP 16; TEMP 37.2; O2SAT 96; BMI 48.2
--- NOTE | 2025-07-30 19:10 | ED.GENADULT ---
HPI - General Adult General Chief complaint: Headache Stated complaint: Difficulty breathing/Migraine/Eye pain Time Seen by Provider: 07/30/25 23:22 Source: patient, RN notes reviewed and old records reviewed Mode of arrival: ambulatory Limitations: no limitations History of Present Illness ED Provider: Akil HPI narrative: 30-year-old male past medical history significant for asthma presents for evaluation of shortness of breath and headache Patient reports he woke up this morning with increased wheezing, shortness of breath, coughing and a headache. He reports feeling pressure behind his eyes. He reports sensitivity light. He reports that he has never been diagnosed with migraines but does have a history of headaches Typically has headaches improved with ibuprofen alone. He denies any fevers, chills, sick contacts. No trauma to the head or neck Related Data Previous Rx's ?Medication ?Instructions ?Recorded albuterol sulfate 2.5 mg/3 mL 2.5 mg (3 mL) inhalation Q4-6H PRN 11/02/24 (0.083 %) solution for nebulization shortness of breath or wheezing #75 mL acetaminophen 325 mg tablet 650 mg (2 x 325 mg) PO Q6H PRN 05/24/25 Pain, Mild 1-3,Fever,Headache #30 tabs albuterol 90 mcg-budesonide 80 2 inh inhalation BID Asthma #10.7 05/24/25 mcg/actuation HFA aerosol inhaler grams (Airsupra) benzonatate 100 mg capsule 200 mg (2 x 100 mg) PO TID PRN 05/24/25 Cough #30 caps doxycycline monohydrate 100 mg 100 mg PO Q12H #5 caps 05/24/25 capsule guaifenesin 100 mg/5 mL oral liquid 200 mg (10 mL) PO Q4H PRN Cough 05/24/25 #240 mL levofloxacin 750 mg tablet 750 mg PO Q24H #6 tabs 05/24/25 prednisone 20 mg tablet 40 mg (2 x 20 mg) PO DAILY #8 tabs 07/31/25 Allergies Allergy/AdvReac Type Severity Reaction Status Date / Time No Known Allergies (No Known Allergy Verified 07/30/25 19:12 Allergies*) Review of Systems Constitutional: Constitutional: Denies body ache(s), Denies chills, Denies excessive sweating, Denies fever(s), Reports headache(s) and Denies malaise Eyes: Eyes: Denies blurry vision ENT: Denies vertigo, Denies dizziness and Reports headache(s) Cardiovascular: Cardiovascular: Denies chest pain, Reports dyspnea and Reports dyspnea on exertion Respiratory: Respiratory: Reports cough, Reports dyspnea, Reports dyspnea on exertion and Reports wheezing Gastrointestinal: Gastrointestinal: Denies abdominal pain and Denies vomiting Musculoskeletal: Musculoskeletal: Denies back pain Integumentary/Breasts: Skin/Breast: Denies rash Neurologic: Denies vertigo, Denies dizziness and Reports headache(s) Psychiatric: Psychiatric: Denies anxiety Endocrine: Endocrine: Denies excessive sweating Allergic/Immunologic: Allergic/Immunologic: Reports wheezing PMFSH Past Medical History Medical History (Updated 07/31/25 @ 01:43 by Tyler Barnard) Bronchiectasis Asthma Asthma COVID-19 Social History Social History Household Members: Other Household Members Other:: homless Housing: Homeless Do you presently have visiting nurse or other home services: No Alcohol intake: current Alcohol intake frequency: 3 or more drinks per day Alcohol type: beer, wine and hard liquor Patient Tobacco Use Status: Current everyday Tobacco user Second Hand Smoke Exposure: No Substance Use Type: Crack/Cocaine Advance Directives: No Advance Directives Information Provided: Yes Do you have a plan to hurt others: No Plan service: No Physical Exam ED Vital Signs: Vital Signs - 24 hr 07/30/25 19:10 07/30/25 23:36 07/31/25 00:06 Temperature 98.9 F Pulse Rate 100 101 H 96 Respiratory Rate 16 18 18 Blood Pressure 155/104 H 151/94 H Pulse Oximetry 96 94 Oxygen Delivery Method Room Air Room Air BMI result Body Mass Index 48.2 Const General: healthy appearing, comfortable, no acute distress, alert and awake Nutritional Appearance: well nourished Orientation/consciousness: patient oriented x3 HENMT Head: Yes normocephalic and Yes atraumatic Eyes Eyelids: Yes eyelids normal Conjunctivae: conjunctivae normal Sclerae: sclerae normal Corneas: corneas normal Pupils: Equal, round and reactive pupils present EOM: EOMs intact bilaterally Neck Neck: Yes full ROM Resp Other: Diminished breath sounds throughout Effort & Inspection: no cough and not labored Auscultation: wheezes Cardio Rate: regular rate Rhythm: regular rhythm GI Inspection: No distended Palpation (GI): Soft to palpation, not firm, nontender, no guarding and not rigid Skin General skin exam: elasticity normal Neuro General: patient oriented x3 Cranial nerves: Yes CN's II-XII intact bilaterally, Yes Equal, round and reactive pupils present and Yes Bilaterally intact EOM present Cognition (Neuro): normal cognition Extrem Other: Moving all extremities well without any obvious deformities Course Course Course Narrative: This is a rapid medical exam performed by Cynthia Angelo NP: Additional HPI, ROS, PE not included below will be deferred to primary provider. Patient is a 30y/o M with pmhx of asthma presenting to the ED with complaint of headache and shortness of breath/wheezing since this morning. Took OTC medication without relief. Hypertensive in triage, not currently on BP meds. Plan: viral swabs Reevaluation(s) Reevaluation #1: Patient reports his headache has resolved after the migraine cocktail in his breathing has significantly improved. We will discharge him with the prednisone for his asthma exacerbation Time: 01:42 Medications Administered Discontinued Medications Generic Name Dose Route Start Last Admin Trade Name Freq PRN Reason Stop Dose Admin Albuterol Sulfate 7.5 mg/ 10 mg 07/31/25 00:00 07/31/25 00:05 Albuterol Sulfate 2.5 mg INHALE 07/31/25 00:01 10 mg ONCE ONE Administration Diphenhydramine HCl 25 mg 07/30/25 23:44 07/31/25 00:22 Diphenhydramine Hcl 50 Mg/Ml Vial IVPUSH 07/30/25 23:45 25 mg ONCE ONE Administration Sodium Chloride 1,000 mls @ 999 mls/hr 07/30/25 23:45 07/31/25 00:20 Ns IV 07/31/25 00:45 999 mls/hr .Q1H1M SPEEDY Administration Ketorolac Tromethamine 30 mg 07/30/25 23:44 07/31/25 00:23 Ketorolac Tromethamine 30 Mg/Ml Vial IVPUSH 07/30/25 23:45 30 mg ONCE ONE Administration Methylprednisolone Sodium Succinate 125 mg 07/30/25 23:44 07/31/25 00:22 Methylprednisolone Sod Succ 125 Mg/2 Ml Vial IVPUSH 07/30/25 23:45 125 mg ONCE ONE Administration Metoclopramide HCl 10 mg 07/30/25 23:44 07/31/25 00:23 Metoclopramide Hcl 10 Mg/2 Ml Vial IVPUSH 07/30/25 23:45 10 mg ONCE ONE Administration Medical Decision Making Medical Decision Making [facility] Narrative: 30-year-old male presents for evaluation of cough, shortness of breath and headache. His symptoms are consistent with viral syndrome. He is wheezy on exam with a history of asthma, he is not hypoxic. We will treat with a DuoNeb, Solu-Medrol. We will also treat his headache with Toradol, Reglan, Benadryl. He denies any trauma of the head or neck, does have a history headaches. No fevers or chills. He has a NIH stroke score is 0. Plan for re-evaluation after treatment. Differential Diagnosis Differential Diagnoses: The differential diagnosis associated with the presentation includes Acute headache Migraine headache Cluster headache Viral syndrome Asthma exacerbation Bronchitis Lab Data Labs: Lab Results 07/30/25 Range/Units 19:16 COVID-19 (JAISON) Negative (Negative) COVID-19 Clin Com See Note Influenza Type A (ARIE) Negative (Negative) Influenza Type B (ARIE) Negative (Negative) Influenza A & B Note See Note Discharge Plan Discharge Clinical Impression: Asthma, Headache Patient Disposition: Home, Self-Care Instructions: Acute Headache (ED) Additional Instructions: Your workup in the ER today was reassuring. Your treated for a headache as well as an asthma exacerbation. You may continue to use ibuprofen or Tylenol for your headaches. Take prednisone 40 mg daily for the next 4 days starting tomorrow and use your inhalers as needed Follow-up with your primary doctor, return for new or worsening symptoms Prescriptions: New prednisone 20 mg tablet 40 mg PO DAILY Qty: 8 0RF No Action albuterol sulfate 2.5 mg /3 mL (0.083 %) solution for nebulization 2.5 mg inhalation Q4-6H PRN (Reason: shortness of breath or wheezing) Qty: 75 0RF acetaminophen 325 mg Tablet 650 mg PO Q6H PRN (Reason: Pain, Mild 1-3,Fever,Headache) Qty: 30 0RF guaifenesin 100 mg/5 mL Liquid 200 mg PO Q4H PRN (Reason: Cough) Qty: 240 0RF benzonatate 100 mg Capsule 200 mg PO TID PRN (Reason: Cough) Qty: 30 0RF doxycycline monohydrate 100 mg Capsule 100 mg PO Q12H Qty: 5 0RF levofloxacin 750 mg Tablet 750 mg PO Q24H Qty: 6 0RF Airsupra 90-80 mcg/actuation HFA aerosol inhaler 2 inh inhalation BID Qty: 10.7 0RF Print Language: [place]ian
[2025-07-30 19:39] LABS: COVID-19 Test Negative (Negative); IDNOW Serial# 55D5AD1C
[2025-07-30 19:41] LABS: IDNOW Serial# 58CA691E; Influenza B2 Negative (Negative)
[2025-07-30 23:36] VITALS: BP 151/94; PULSE 101; RESP 18; O2SAT 94
--- OUTSIDE RECORDS SUMMARY | 2025-07-30 23:37 | XMS_ITS | Clinical Summary ---
Author Organization [employer] Address [address] [place] [address] Care Team Providers Care Weatherization Technician Name Role Phone Krys Barksdale MD Primary Care Provider + Allergies No known active allergies Medications albuterol 108 (90 Base) MCG/ACT inhaler Inhale 2 puffs every 6 (six) hours if needed for wheezing. 18 g 5 06/20/20 26 Active albuterol 1.25 MG/3ML nebulizer solution Take 3 mL (1.25 mg) by nebulization every 6 (six) hours if needed for wheezing. 75 mL 3 5 06/20/20 26 Active Blood Pressure Monitoring (Blood Pressure Cuff) misc Use daily as prescribed 1 each 5 Active fluticasone (Flonase) 50 MCG/ACT nasal spray Administer 1 spray into each nostril Once per day. 16 g 5 Active Encounters Date Type Department Care Team Description 06/21/2025 Telephone [facility] [address] [place], [place] [phone] Krys Barksdale MD 06/20/2025 9:15 AM EDT Office Visit [facility] [address] [place] [phone] Krys Barksdale MD Moderate persistent asthma without complication (Primary Dx); Elevated blood pressure reading; Dietary counseling; Exercise counseling; Obesity due to excess calories with serious comorbidity, unspecified class; Possible exposure to STD 06/20/2025 Telephone [facility] [address], [place] [phone] Krys Barksdale MD 06/20/2025 Travel 06/19/2025 Telephone [facility] [address] [place] [phone] Krys Barksdale MD chart prep 06/11/2025 Patient Outreach [facility] [address] [place] [address] Krys Barksdale MD Pre-visit Planning ((Unable to reach for PVP screening and or LVM) to be completed in office) 05/02/2025 11:30 AM EDT Office Visit [facility] ADULT DENTAL [address] [place] [address] Earnest Lujan DMD from Last 3 Months Immunizations Immunization Administration Dates Next Due DTaP, 5 pertussis antigens 05/01/1999,,06/16/1995,03/16/1995,1 Hep A, ped/adol, 2 dose 05/07/2011 Hep B, Adolescent or Pediatric 03/16/1995,1993,1994 Hib (PRP-T) 03/15/1997,06/16/1995,03/16/1995 ,1994 IPV 05/01/1999,06/16/1995,03/16/1995 ,1994 Influenza, IIV3, injectable 11/25/2004 MMR 05/01/1999,03/15/1997 Meningococcal MCV4P [id number] 06/07/2006 Meningococcal MPSV4 02/13/2007 Tdap 06/07/2006 Family History Medical History Relation Name Comments Breast cancer Mother Relation Name Status Comments Mother Social History Tobacco Use Types Packs/Day Years Used Date Smoking Tobacco: Every Day Cigarettes Passive Smoke Exposure: Current Smokeless Tobacco: Never Tobacco Cessation:Ready to Q uit: Not Asked; Counseling Given: Not Answered Alcohol Use Standard Drinks/Week Comments Yes 15 (1 standard drink = 0.6 oz pu re alcohol) Depression Answer Date Recorded Patient Health Questionnaire-9 Score 10 06/20/2025 Patient Health Questionnaire-9 Score 10 06/20/2025 Last PHQ-9: Questionnaire Data Not on file 0 06/20/2025 Housing Stability Answer Date Recorded What is your housing situation today? I do not have housing (Staying with others, in a hotel, in a [place] [facility] [place], living outside on the street, on a beach, in a car, or in a park 06/20/[address] you li ve. Do you have problems with any of the following? None of the above 06/20/2025 Food Insecurity Answer Date Recorded Within the past 12 months, y ou worried that your food would run out before you got money to buy more: Sometimes True 2024 Within the past 12 months,th e food you bought just didn't last and you didn't have enough money to get more: Sometimes True 06/20/2025 Transportation Answer Date Recorded In the past 12 months, has l ack of transportation kept you from medical appts, meetings, work or from getting things needed for daily living? Yes, it has kept me from non-medical meetings, work, or getting things that I need 06/20/2025 Utilities Answer Date Recorded In the past 12 months, has t he electric, gas, oil or water company threatened to shut off services in your home? No 06/20/2025 Depression Answer Date Recorded Patient Health Questionnaire-2 Score 3 06/20/2025 Internet Access Answer Date Recorded Internet Access Q1 No 06/20/2025 Internet Access Q2 Not on file 06/20/2025 Sex and Gender Information Value Date Recorded Sex Assigned at Male 05/02/2025 8:50 AM EDT Legal Sex Male 12:16 PM EST Gender Identity Male 05/02/2025 8:50 AM EDT Sexual Orientation Straight 05/02/2025 8: 50 AM EDT Last Filed Vital Signs Vital Sign Reading Time Taken Comments Blood Pressure 160/95 06/20/2025 9:57 AM EDT Pulse 74 06/20/2025 9:11 AM EDT Temperature - - Respiratory Rate 20 06/20/2025 9:11 AM EDT Oxygen Saturation - - Inhaled Oxygen Concentration - - Weight 150 kg (329 lb 12.8 oz) 06/20/2025 9:11 A M EDT Height 175.3 cm (5' 9 ) 06/20/2025 9:11 AM EDT Body Mass Index 48.7 06/20/2025 9:11 AM EDT Plan of Treatment Upcoming Encounters Date Type Department Care Team (Late st Contact Info) Description 08/01/2025 11:30 AM EDT Office Visit [facility] [address] [place] [phone] Krys Barksdale MD [address] [place] [address] Health Maintenance Due Date Last Done Comments Dental Oral Exam 1994 Dental Prophylaxis 1994 Dental X-Ray: Bitewings 1994 HIV Screening 1994 Lipid Panel 1994 Family Planning (PISQ) 2009 HPV Vaccines (1 - Male 3-dose series) 2009 Hepatitis A Vaccines (2 of 2 - 2-dose series) 11/07/2011 05/07/2011 Hepatitis C Screening 2012 Pneumococcal Vaccine: Pediatrics (0 to 5 Years) and At-Risk Patients (6 to 49) Years (1 of 2 - PCV) 2013 DTaP/Tdap/Td Vaccines (7 - Td or Tdap) 06/07/2016 06/07/2006, 05/01/1999, 03/15/1997, Additional history exists COVID-19 Vaccine ( season) 2025 Influenza Vaccine (#1) 2025 11/25/2004 Depression Monitoring 12/18/2025 06/20/2025, 025 Alcohol/Substance Use Screening 06/20/2026 06/20/2025 Disability Screening 06/20/2026 06/20/2025 SDOH Screening 06/20/2026 06/20/2025 Tobacco Screening 06/20/2026 06/20/2025 Dental X-Ray: Full Mouth 05/03/2028 05/02/2025 Zoster Vaccines (1 of 2) 2044 RSV Patients and Patients Aged 60 years or older (1 - 1-dose 75+ series) 2069 Hepatitis B Vaccines Completed 03/16/1995, 1994, 1994 HIB Vaccines Completed 03/15/1997, 05/19, 03/16/1995, Additional history exists IPV Vaccines Completed 05/01/1999, 05/19, 03/16/1995, Additional history exists Meningococcal Vaccine Aged Out 02/13/2007, 006 No longer eligible based on patient's age to complete this topic Meningococcal B Vaccine Aged Out No l onger eligible based on patient's age to complete this topic RSV under 20 months Aged Out No longe r eligible based on patient's age to complete this topic Rotavirus Vaccines Aged Out No longer eligible based on patient's age to complete this topic Procedures Procedure Name Priority Date/Time Associated Diagnosis Comments CASE PRESENTATION, DETAILED AND EXTENSIVE TREATMENT PLANNING Routine 05/02/2025 11:30 AM EDT PANORAMIC RADIOGRAPHIC IMAGE Routine 05/02/2025 11:30 AM EDT PALLIATIVE (EMERGENCY) TREATMENT OF DENTAL PAIN - MINOR PROCEDURE Routine 05/02/2025 11:30 AM EDT from Last 3 Months Insurance [facility] C3 DENTAL-[facility] MEDICAID STAND ADULT Care Teams Weatherization Technician Relationship Specialty Start Date End Date Krys Barksdale MD [address] [place] [phone] PCP - General Internal Medicine 06/20/25
--- OUTSIDE RECORDS SUMMARY | 2025-07-30 23:37 | XMS_ITS | Encounter Summary ---
Author Organization [facility] Address [address] [place] [phone] Phone Care Team Providers Care Hand Deicer Element Winder Name Role Phone Toño Lancaster MD Primary Care Provider [phone] Encounter Details Date Type Department Care Team (Late st Contact Info) Description 05/10/2011 Documentation EM Family Medicine [address] [address] Family Medicine, Physician [address] [place], [place] [phone] Social History Tobacco Use Types Packs/Day Years Used Date Smoking Tobacco: Never Assessed Sex and Gender Information Value Date Recorded Sex Assigned at Not on file Legal Sex Male 4:51 PM EDT Gender Identity Not on file Sexual Orientation Not on file documented as of this encounter Plan of Treatment Not on file documented as of this encounter Visit Diagnoses Not on filedocumented in this encounter Care Teams Hand Deicer Element Winder Relationship Specialty Start Date End Date Toño Lancaster MD [address] [place] [phone] PCP - General 05/27/17 03/23/23 documented as of this encounter
--- OUTSIDE RECORDS SUMMARY | 2025-07-30 23:37 | XMS_ITS | Encounter Summary ---
Author Organization [facility] Address [address] [place] [address] Phone Care Team Providers Care Magnetic Healer Name Role Phone Toño Lancaster MD Primary Care Provider [phone] Encounter Details Date Type Department Care Team (Late st Contact Info) Description 06/02/2017 Conversion Encounter [facility] [place] [address] [place] [address] Social History Tobacco Use Types Packs/Day Years Used Date Smoking Tobacco: Never Comments:Never smoker Sex and Gender Information Value Date Recorded Sex Assigned at Not on file Legal Sex Male 4:51 PM EDT Gender Identity Not on file Sexual Orientation Not on file documented as of this encounter Plan of Treatment Not on file documented as of this encounter Visit Diagnoses Not on filedocumented in this encounter Care Teams Magnetic Healer Relationship Specialty Start Date End Date Toño Lancaster MD [address] [place] [address] PCP - General 05/27/17 03/23/23 documented as of this encounter
--- OUTSIDE RECORDS SUMMARY | 2025-07-30 23:37 | XMS_ITS | Encounter Summary ---
Author Organization [facility] Address [address] [place] [phone] Phone Care Team Providers Care Slot Attendant Name Role Phone Toño Lancaster MD Primary Care Provider [phone] Encounter Details Date Type Department Care Team (Late st Contact Info) Description 09/24/2013 Documentation EM Family Medicine [address] [place] [address] Family Medicine, Physician [address] [place], [place] [phone] Social History Tobacco Use Types Packs/Day Years [...] on filedocumented in this encounter Care Teams Slot Attendant Relationship Specialty Start Date End Date Toño Lancaster MD [address] [place] [phone] PCP - General 05/27/17 03/23/23 documented as of this encounter
--- OUTSIDE RECORDS SUMMARY | 2025-07-30 23:37 | XMS_ITS | Clinical Summary ---
Author Organization [facility] Address [address] [place] [phone] Phone Care Team Providers Care Car Repairer Pullman Name Role Phone Unavailable Primary Care Provider Unavailabl e Immunizations Immunization Administration Dates Next Due DTaP 5 05/01/1999, 7,06/16/1995, 995,1994 Hep A, ped/adol 05/07/2011 Hep B, ped/adol 03/16/1995,1994,1994 Hib (PRP-T) 03/15/1997, 5,03/16/1995, 994 IPV 05/01/1999, 5,03/16/1995, 994 Influenza, injectable, trivalent 11/25/2004 MMR 05/01/1999,03/15/1997 Meningococcal Conj (Menactra) MCV4P 06/07/2006 Meningococcal Polysaccharide 02/13/2007 Tdap 06/07/2006 Family History Relation Name Status Comments Father Father: Healthy Mother Alive Mother: Hyperte nsion, Depression Other Family history of Asthma Social History Tobacco Use Types Packs/Day Years Used Date Smoking Tobacco: Never Comments:Never smoker Sex and Gender Information Value Date Recorded Sex Assigned at Not on file Legal Sex Male 4:51 PM EDT Gender Identity Not on file Sexual Orientation Not on file Last Filed Vital Signs Vital Sign Reading Time Taken Comments Blood Pressure 124/70 06/12/2013 12:00 AM EDT Pulse 60 05/07/2011 12:00 AM EDT Temperature 36.9 C (98.5 F) 06/12/2013 12:00 AM EDT Respiratory Rate - - Oxygen Saturation 99% 11/04/2011 12:00 AM EST Inhaled Oxygen Concentration - - Weight 123 kg (271 lb) 06/12/2013 12:00 AM EDT Height 176 cm (5' 9.3 ) 06/12/2013 12:00 AM EDT Body Mass Index 39.67 06/12/2013 12:00 AM EDT Plan of Treatment Health Maintenance Due Date Last Done Comments Varicella Vaccines (1 of 2 - 13+ 2-dose series) 2007 Hepatitis A Vaccines (2 of 2 - 2-dose series) 11/07/2011 05/07/2011 HPV Vaccines (1 - 3-dose SCDM series) 2021 Influenza Vaccines (#1) 2025 11/25/2004 COVID-19 Vaccine ( - season) 2025 DTaP,Tdap,and Td Vaccines (9 - Td or Tdap) 08/02/2030 08/02/2020, 12/02/2017, 06/07/2006, Additional history exists Hepatitis B Vaccines Completed 03/16/1995, 1994, 1994 HIB Vaccines Completed 03/15/1997, 05/19, 03/16/1995, Additional history exists IPV Vaccines Completed 05/01/1999, 05/19, 03/16/1995, Additional history exists MMR Vaccines Completed 05/01/1999, 03/15/1997 Meningococcal Vaccine Aged Out 06/07/2006 No mildred rita eligible based on patient's age to complete this topic Pneumococcal Vaccine Aged Out 12/02/2017 No long er eligible based on patient's age to complete this topic Men B Vaccine Aged Out No longer elig ible based on patient's age to complete this topic
[2025-07-31] MEDS: Albuterol Sulfate 7.5 MG, Albuterol Sulfate (0.083%) 2.5 MG 10 MG INHALE (00:05)
[2025-07-31 00:06] VITALS: PULSE 96; RESP 18; O2SAT 96
[2025-07-31 01:49] VITALS: BP 147/82; PULSE 84; RESP 18; TEMP 37.1; O2SAT 96
[2025-07-31 01:59] VITALS: BP 147/82; PULSE 84; RESP 18; TEMP 37.1; O2SAT 96
== END 2025-07-31 01:59 | disposition home or self-care (01) ==
PROVIDERS: Registered Nurse Emergency; Emergency Provider Emergency Medicine
DX: J45.901 Unspecified asthma with (acute) exacerbation (principal); R51.9 Headache, unspecified; Z59.00 Homelessness unspecified; Z79.899 Other long term (current) drug therapy
CPT/HCPCS: 87502; 87635; 94640; 96361; 96374; 96375; 99284; J1200; J1885; J2765; J2919

== ENCOUNTER 2025-09-20 08:59 | Emergency (ER) | payer MEDICAID, SELFPAY ==
--- NOTE | ~2025-09-20 | XR_ITS ---
EXAMINATION: XR CHEST CLINICAL INFORMATION: sob COMPARISON: May 22, 2025 x-ray and CT from May 20, 2025 TECHNIQUE: 2 views of the chest were obtained. FINDINGS: On prior CT, patient demonstrates cystic bronchiectasis with peribronchial thickening in the right middle lobe accounting for patchy increased density with cystic lucencies in the right middle lobe on the current x-ray. There are increased streaky markings in the retrocardiac medial left lung base. An azygos fissure is incidentally noted. There is no pneumothorax. There is no pleural effusion. XR/XR chest 2V IMPRESSION: Cystic bronchiectasis in right middle lobe. Minimally increased streaky opacity in the retrocardiac region probably represents atelectasis, pneumonia is not ruled out. Electronically signed by: Placido Leach MD 09/20/2025 09:45 AM [facility]
--- NOTE | ~2025-09-20 | CT_ITS ---
EXAMINATION: CT ABDOMEN AND PELVIS WITH CONTRAST CLINICAL INFORMATION: [Left lower quadrant abdominal pain COMPARISON: Correlation with CT chest 05/20/2025 TECHNIQUE: Multidetector volumetric images were obtained from the superior aspect of the liver through the pubic symphysis following administration 85 mL of Omnipaque 350 intravenous contrast. Sagittal and coronal reformatted images were obtained on the technologist's workstation. Oral contrast: No This CT examination was performed using dose optimization techniques as appropriate, variously including the following: *Automated exposure control *Adjustment of mA and/or kV according to patient size (this includes techniques or standardized protocols for targeted exams where dose is matched to indication/reason for exam; i.e. extremities or head) *Use of iterative reconstruction technique FINDINGS: LUNG BASES: Marked bronchiectasis in the visualized right middle lobe and moderate bronchiectasis in bilateral lower lobes, similar to previous. Nodular opacities in bilateral lower lobes, slightly more prominent as compared to previous, likely secondary to inflammatory/infectious process.. LIVER, GALLBLADDER, AND BILIARY TREE: Hepatomegaly. Right lobe measures 20 cm craniocaudal. No liver lesion seen.. No intrahepatic biliary duct dilatation. Gallstone present. No gallbladder wall thickening, or obvious pericholecystic inflammatory changes. PANCREAS: Unremarkable. No acute inflammatory changes. SPLEEN: Unremarkable. ADRENAL GLANDS: Unremarkable. KIDNEYS AND URETERS: No suspicious renal lesions. No renal or ureteral calculi. No hydronephrosis. BLADDER: Unremarkable. GASTROINTESTINAL TRACT: Stomach is partially distended. No dilated small or large bowel loops. Small-moderate volume stool in the large colon. Portion of the colon is nondistended. No pericolonic inflammatory changes seen. Appendix appears unremarkable. ABDOMINAL WALL: Small fat-containing left inguinal hernia. Small fat-containing umbilical hernia. Small supraumbilical fat-containing hernia. LYMPH NODES: No pathologically enlarged lymph nodes are seen. VASCULAR: Normal caliber aorta. PELVIC VISCERA: Prostate measures 4 cm transverse. OSSEOUS STRUCTURES: No acute or suspicious osseous abnormality. CT/CT abdomen pelvis w IV con IMPRESSION: * No acute intra-abdominal findings identified. Cause of the patient's symptoms has not been determined. * Small-moderate volume stool in the large colon. * Marked bronchiectasis in the right middle lobe and bilateral lower lobes, similar to the prior chest CT. Nodular opacities in bilateral lower lobes, slightly more prominent as compared to this. This likely secondary to inflammatory/infectious process. Follow-up imaging as indicated. * Hepatomegaly. *Gallstone. No CT findings suggest acute cholecystitis. Clinically correlate. Ultrasound evaluation as clinically indicated. *Small, fat-containing, umbilical and left inguinal hernia. Fleischner guidelines were followed. Electronically signed by: Sidney Herzog MD 09/20/2025 12:44 PM [facility]
[2025-09-20 09:07] VITALS: BP 157/79; PULSE 108; RESP 22; TEMP 36.6; O2SAT 92; BMI 50.5
[2025-09-20 09:51] LABS: MANUAL DIFF FLAG NO
[2025-09-20 09:53] LABS: Hematocrit 40.9 % (42.0-52.0); Hemoglobin 13.0 g/dl (14.0-18.0); Imm Gran Abs Auto 0.05 X10*3/uL (0.00-0.03); Imm Gran Pct Auto 0.4 % (0.0-0.4); Lymphocytes Absolute Auto 1.6 X10*3/uL (1.2-4.9); Mean Corpuscular HGB Conc 31.8 g/dl (31.0-36.0); Mean Corpuscular Hemoglobin 26.5 pg (27.0-33.0); Mean Corpuscular Volume 83.3 fL (80.0-98.0); NRBC Abs Auto 0.000 X10*3/uL (0.0-0.012); NRBC Pct Auto 0.0 /100WBC (0.0-0.2); Platelet Count 385 X10*3/uL (160-400); Red Blood Count 4.91 X10*6/uL (4.60-5.80); White Blood Count 13.3 X10*3/uL (4.8-10.8)
[2025-09-20 09:58] LABS: INTERNATIONAL NORM RATIO 1.2 (0.9-1.1); Prothrombin Time 14.4 SEC (11.2-13.5)
[2025-09-20 10:15] LABS: Alanine Aminotransferase 21 U/L (0-40); Albumin Level 4.3 g/dL (3.5-5.0); Alkaline Phosphatase 98 U/L (39-117); Anion Gap 13 (12-20); Aspartate Amino Transferase 18 U/L (5-37); Blood Urea Nitrogen 8 mg/dL (9-16); Calcium 9.4 mg/dL (8.4-10.2); Carbon Dioxide 28 mmol/L (22-29); Chloride 102 mmol/L (96-108); Creatinine Clr Calc Pharmacy 213.1; Estimated Glomerular Filt Rate > 60; Magnesium 2.0 mg/dL (1.6-2.6); Potassium 4.0 mmol/L (3.3-5.1); Sodium 139 mmol/L (135-145); Total Protein 8.7 g/dL (6.5-8.0)
[2025-09-20 10:22] LABS: Troponin-I High Sensitivity 7.4 ng/L (<3.5-35.0)
[2025-09-20 10:30] LABS: Resp Syncy Virus RNA Qual PCR NEGATIVE (Negative); SARS COV2 PCR INHOUSE NEGATIVE (Negative)
--- NOTE | 2025-09-20 10:47 | ED.GENADULT ---
HPI - General Adult General Chief complaint: Dyspnea Stated complaint: sob, abd pain Time Seen by Provider: 09/20/25 10:57 Source: patient, RN notes reviewed and old records reviewed Mode of arrival: ambulatory History of Present Illness ED Provider: Mehnaz Stuart PA-C HPI narrative: 30-year-old male with a past medical history of asthma, bronchiectasis, presenting to the ED complaining of increased SOB, productive cough and left lower quadrant abdominal pain x1 week. Admits to using nebulizer/inhaler at home without relief. Denies fever, chills, recent travel, sick contacts, nausea, vomiting, dysuria/hematuria. Related Data Previous Rx's ?Medication ?Instructions ?Recorded albuterol sulfate 2.5 mg/3 mL 2.5 mg (3 mL) inhalation Q4-6H PRN 11/02/24 (0.083 %) solution for nebulization shortness of breath or wheezing #75 mL acetaminophen 325 mg tablet 650 mg (2 x 325 mg) PO Q6H PRN 05/24/25 Pain, Mild 1-3,Fever,Headache #30 tabs albuterol 90 mcg-budesonide 80 2 inh inhalation BID Asthma #10.7 05/24/25 mcg/actuation HFA aerosol inhaler grams (Airsupra) benzonatate 100 mg capsule 200 mg (2 x 100 mg) PO TID PRN 05/24/25 Cough #30 caps doxycycline monohydrate 100 mg 100 mg PO Q12H #5 caps 05/24/25 capsule guaifenesin 100 mg/5 mL oral liquid 200 mg (10 mL) PO Q4H PRN Cough 05/24/25 #240 mL levofloxacin 750 mg tablet 750 mg PO Q24H #6 tabs 05/24/25 prednisone 20 mg tablet 40 mg (2 x 20 mg) PO DAILY #8 tabs 07/31/25 azithromycin 250 mg tablet 250 mg PO DAILY 4 days #4 tabs 09/20/25 cefpodoxime 200 mg tablet 200 mg PO BID 7 days #14 tabs 09/20/25 polyethylene glycol 3350 17 17 g PO DAILY PRN constipation 09/20/25 gram/dose oral powder (Miralax) #119 grams prednisone 20 mg tablet 40 mg (2 x 20 mg) PO DAILY 5 days 09/20/25 #10 tabs Allergies Allergy/AdvReac Type Severity Reaction Status Date / Time No Known Allergies (No Known Allergy Verified 09/20/25 09:10 Allergies*) Review of Systems Review of Systems: Yes all other systems are reviewed and are negative Constitutional: Constitutional: Reports as per [facility] Past Medical History Attestation statement: The following information was validated with the patient. Source: old records reviewed Medical History Bronchiectasis Asthma Asthma COVID-19 Social History Social History Household Members: Other Household Members Other:: homless Housing: Homeless Do you presently have visiting nurse or other home services: No Alcohol intake: current Alcohol intake frequency: 3 or more drinks per day Alcohol type: beer, wine and hard liquor Patient Tobacco Use Status: Current everyday Tobacco user Second Hand Smoke Exposure: No Substance Use Type: Crack/Cocaine Advance Directives: No Advance Directives Information Provided: Yes Do you have a plan to hurt others: No Plan service: No Physical Exam ED Vital Signs: Vital Signs - 24 hr 09/20/25 09:07 09/20/25 11:33 09/20/25 11:57 Temperature 98 F 98.1 F Pulse Rate 108 H 100 110 H Respiratory Rate 22 H 24 H 20 Blood Pressure 157/79 H 134/73 Pulse Oximetry 92 93 Oxygen Delivery Method Room Air Room Air 09/20/25 13:44 Temperature Pulse Rate 110 H Respiratory Rate 19 Blood Pressure Pulse Oximetry Oxygen Delivery Method BMI result Body Mass Index 50.5 Const General: cooperative, healthy appearing and no acute distress Orientation/consciousness: patient oriented x3 Limitations: no limitations HENMT Head: Yes normal to inspection and Yes atraumatic Ears: hearing grossly normal bilaterally General nose exam: Normal external nose present Face and sinus: Yes normal facial exam Eyes General: appearance normal, both eyes and all related structures EOM: EOMs intact bilaterally Neck Neck: Yes normal visual inspection and Yes no meningeal signs Resp Effort & Inspection: normal respiratory effort, no respiratory distress and tachypneic Auscultation: wheezes expiratory wheezes and inspiratory wheezes and diminished lung sounds diffuse Cardio Rate: regular rate Heart sounds: S1 normal heart sound present and S2 normal heart sound present GI Inspection: Yes normal to inspection Palpation (GI): Soft to palpation, Tenderness to palpation present (GI) in the LLQ; with no rebound tenderness, no guarding and not rigid General: Yes no CVA tenderness Back/Spine/Pelvis Back: no CVA tenderness Skin Rashes: no rashes Wounds: no wounds Neuro General: patient oriented x3, tone normal and no meningeal signs Cranial nerves: Yes CN's II-XII intact bilaterally Gait exam (Neuro): Normal gait present Extrem General: Yes normal to inspection Course Course Course Narrative: Rapid medical examination performed in triage by Skylar Duval PA-C: Patient is a 30 year old assigned male at presenting to the emergency department with a cough, feeling short of breath, and left sided abdominal pain. Detailed physical exam and review of systems are deferred to the psychiatric clinician. Labs, imaging, swabs ordered. Patient placed back in the waiting room pending room availability and results. -1210--leukocytosis of 13.3. H/H stable. Troponin 7.4 > will obtain repeat. Labs otherwise reassuring -COVID/flu/RSV negative XR chest 2V IMPRESSION: Cystic bronchiectasis in right middle lobe. Minimally increased streaky opacity in the retrocardiac region probably represents atelectasis, pneumonia is not ruled out. -1435--Repeat troponin without rise, mi unlikely. CT abdomen pelvis w IV con IMPRESSION: * No acute intra-abdominal findings identified. Cause of the patient's symptoms has not been determined. * Small-moderate volume stool in the large colon. * Marked bronchiectasis in the right middle lobe and bilateral lower lobes, similar to the prior chest CT. Nodular opacities in bilateral lower lobes, slightly more prominent as compared to this. This likely secondary to inflammatory/infectious process. Follow-up imaging as indicated. * Hepatomegaly. *Gallstone. No CT findings suggest acute cholecystitis. Clinically correlate. Ultrasound evaluation as clinically indicated. *Small, fat-containing, umbilical and left inguinal hernia. Fleischner guidelines were followed. >1456--on re-evaluation patient reports symptomatic improvement, lungs CTA NAD. Tachycardia resolved. O2 sat 95 RA. Feels comfortable for discharge home. Discussed strict return precautions Results discussed with patient including worrisome signs and symptoms and strict return precautions, and when to return to the emergency department. They verbalized understanding and feel safe for discharge at this time. Medications Administered Discontinued Medications Generic Name Dose Route Start Last Admin Trade Name Sunilq PRN Reason Stop Dose Admin Albuterol Sulfate 2.5 mg/ 5 mg 09/20/25 13:36 09/20/25 13:39 Albuterol Sulfate 2.5 mg INHALE 09/20/25 13:37 5 mg ONCE ONE Administration Albuterol Sulfate 2.5 mg/ 0 mg 09/20/25 11:12 09/20/25 11:27 Albuterol/Ipratropium 3 ml INHALE 09/20/25 11:13 5 dose ONCE ONE Administration Ceftriaxone Sodium 1 gm/ 50 mls @ 100 mls/hr 09/20/25 10:58 09/20/25 11:46 Sodium Chloride IV 09/20/25 11:27 Infused ONCE ONE Infusion Azithromycin 500 mg/ Sodium 250 mls @ 125 mls/hr 09/20/25 10:59 09/20/25 14:19 Chloride IV 09/20/25 12:58 Infused ONCE ONE Infusion Sodium Chloride 1,000 mls @ 999 mls/hr 09/20/25 11:15 09/20/25 14:19 Ns IV 09/20/25 12:15 Infused .Q1H1M SPEEDY Infusion Iohexol 100 ml 09/20/25 12:10 09/20/25 12:10 Iohexol 350 Mg/Ml 100 Ml Infus..Btl IV 09/20/25 12:11 85 ml ONCE ONE Administration Methylprednisolone Sodium Succinate 60 mg 09/20/25 12:05 09/20/25 12:12 Methylprednisolone Sod Succ 125 Mg/2 Ml Vial IVPUSH 09/20/25 12:06 60 mg ONCE ONE Administration Medical Decision Making Medical Decision Making MDM Narrative: 30-year-old male with a past medical history of asthma, bronchiectasis, presenting to the ED complaining of increased SOB, productive cough and left lower quadrant abdominal pain x1 week. On exam initially tachycardic, tachypneic, satting 92% on RA, diffuse inspiratory/expiratory wheezing and tight lung sounds appreciated. Abdomen is soft with LLQ tenderness, no rebound or guarding. Concern for asthma exacerbation vs pneumonia vs viral illness. Concern for diverticulitis. Lower suspicion for ACS/dissection, appendicitis, pyelo or cholecystitis Plan: EKG, labs, UA, CXR, CT AP, ED bronch protocol, IV Solu-Medrol. Anticipate admission Please refer to course for remaining clinical decision making, interpretation of labs/imaging results, and discussions with consultants and/or family members. Differential Diagnosis Differential Diagnoses: The differential diagnosis associated with the presentation includes As above Admission/Observation Consideration of admission/observation: Escalation of care including admission/observation considered Lab Data MDM Lab Attestation statement: I reviewed the patient's lab results. 09/20/25 09:47 09/20/25 09:47 Labs: Lab Results 09/20/25 09/20/25 09/20/25 Range/Units 09:47 11:27 12:19 WBC 13.3 H (4.8-10.8) X10*3/uL RBC 4.91 (4.60-5.80) X10*6/uL Hgb 13.0 L (14.0-18.0) g/dl Hct 40.9 L (42.0-52.0) % MCV 83.3 (80.0-98.0) fL MCH 26.5 L (27.0-33.0) pg MCHC 31.8 (31.0-36.0) g/dl RDW 13.2 (11.0-16.0) % Plt Count 385 (160-400) X10*3/uL MPV 8.7 L (9.4-12.4) fL Immature Gran % (Auto) 0.4 (0.0-0.4) % Neut % (Auto) 75.7 H (45-73) % Lymph % (Auto) 11.7 L (20-40) % [place] % (Auto) 10.5 (2-11) % Eos % (Auto) 1.2 (0-4) % Baso % (Auto) 0.5 (0-2) % Lymph # (Auto) 1.6 (1.2-4.9) X10*3/uL [place] # (Auto) 1.4 H (0.1-1.2) X10*3/uL Eos # (Auto) 0.2 (0.0-0.4) X10*3/uL Baso # (Auto) 0.1 (0.0-0.2) X10*3/uL Abs Immat Gran (auto) 0.05 H (0.00-0.03) X10*3/uL Absolute Neuts (auto) 10.0 H (2.0-8.3) x10*3/uL Absolute Nucleated RBC 0.000 (0.0-0.012) X10*3/uL Nucleated RBC % (auto) 0.0 (0.0-0.2) /100WBC PT 14.4 H (11.2-13.5) SEC INR 1.2 H (0.9-1.1) Sodium 139 (135-145) mmol/L Potassium 4.0 (3.3-5.1) mmol/L Chloride 102 (96-108) mmol/L Carbon Dioxide 28 (22-29) mmol/L Anion Gap 13 (12-20) BUN 8 L (9-16) mg/dL Creatinine 0.72 (0.5-1.4) mg/dL Estim Creat Clear Calc 213.1 Estimated GFR > 60 Random Glucose 101 (60-115) mg/dL Lactic Acid 0.8 (0.5-2.0) mmol/L Calcium 9.4 D (8.4-10.2) mg/dL Magnesium 2.0 (1.6-2.6) mg/dL Total Bilirubin 0.5 (0.0-1.0) mg/dL AST 18 (5-37) U/L ALT 21 (0-40) U/L Alkaline Phosphatase 98 (39-117) U/L Troponin I High Sens 7.4 5.5 (<3.5-35.0) ng/L Total Protein 8.7 H (6.5-8.0) g/dL Albumin 4.3 (3.5-5.0) g/dL Lipase 13 (8-78) U/L Influenza Type A (PCR) NEGATIVE (Negative) Influenza Type B (PCR) NEGATIVE (Negative) RSV RNA Qual (PCR) NEGATIVE (Negative) SARS-CoV-2 RNA (RT-PCR) NEGATIVE (Negative) Independent Interpretation I performed an independent interpretation of an: EKG, Plain X-Ray and CT Scan Radiology Impression Discussion of test interpretation with radiology: I have reviewed the radiologist's reading. External Record Review External record reviewed: Inpatient record, Office record, Outpatient record, Prior outpatient labs, Prior outpatient radiology, Primary care record and Outside ED record Tests considered The following testing was considered but not selected: As above Prescription Management I considered prescription management with: Antibiotic and Other Chronic Conditions Patient?s care impacted by: Other (Asthma) Social Determinants Patient?s care significantly limited by Social Determinants of Health including: Other Social Determinant of Health Discharge Plan Discharge Clinical Impression: Pneumonia, Asthma exacerbation, Left lower quadrant abdominal pain, Constipation Additional Instructions: You have pneumonia and an asthma exacerbation Your CAT scan shows some constipation, a gallstone which is not causing any acute issues and a fat containing umbilical and left inguinal hernia. Cefpodoxime and azithromycin or antibiotics please take as prescribed until completion Prednisone as a steroid Continue to use your nebulizer and inhaler at home Please have close follow up with your primary care doctor If her symptoms persist or worsen, you have constant worsening shortness of breath, chest pain, or fever return to the emergency department MiraLax will help with constipation Prescriptions: New azithromycin 250 mg tablet 250 mg PO DAILY 4 Days Qty: 4 0RF Rx Instructions: start on day 2 of therapy cefpodoxime 200 mg tablet 200 mg PO BID 7 Days Qty: 14 0RF Rx Instructions: must administer with a meal/food prednisone 20 mg tablet 40 mg PO DAILY 5 Days Qty: 10 0RF polyethylene glycol 3350 [Miralax] 17 gram/dose powder 17 g PO DAILY PRN (Reason: constipation) Qty: 119 0RF No Action albuterol sulfate 2.5 mg /3 mL (0.083 %) solution for nebulization 2.5 mg inhalation Q4-6H PRN (Reason: shortness of breath or wheezing) Qty: 75 0RF acetaminophen 325 mg Tablet 650 mg PO Q6H PRN (Reason: Pain, Mild 1-3,Fever,Headache) Qty: 30 0RF guaifenesin 100 mg/5 mL Liquid 200 mg PO Q4H PRN (Reason: Cough) Qty: 240 0RF benzonatate 100 mg Capsule 200 mg PO TID PRN (Reason: Cough) Qty: 30 0RF doxycycline monohydrate 100 mg Capsule 100 mg PO Q12H Qty: 5 0RF levofloxacin 750 mg Tablet 750 mg PO Q24H Qty: 6 0RF Airsupra 90-80 mcg/actuation HFA aerosol inhaler 2 inh inhalation BID Qty: 10.7 0RF prednisone 20 mg tablet 40 mg PO DAILY Qty: 8 0RF Referrals: [facility] [Primary Care Provider, Medical] - 3 days Print Language: Guamanian
[2025-09-20] MEDS: Albuterol Sulfate 2.5 MG, Albuterol/Iprat 2.5/0.5MG 3 ML 3 ML INHALE (11:27)
--- NOTE | 2025-09-20 11:30 | PC.NURSE ---
Patient presented to ED with productive cough and SOB for 1 week. Patient also complaining of left sided abdominal pain. Wheezy upon auscultation. IV 20g with blood cultures drawn and started antibiotics. States he is an active smoker. Respiratory in room for breathing treatment. VSS on RA.
[2025-09-20 11:33] VITALS: PULSE 100; RESP 24; O2SAT 92
[2025-09-20 11:44] LABS: Lipase 13 U/L (8-78)
[2025-09-20 11:57] VITALS: BP 134/73; PULSE 110; RESP 20; TEMP 36.7; O2SAT 93
[2025-09-20] MEDS: iohexoL 350 MG/ML 100 ML INFUS..BTL IV (12:10)
[2025-09-20 12:52] LABS: Troponin-I High Sensitivity 5.5 ng/L (<3.5-35.0)
[2025-09-20] MEDS: Albuterol Sulfate 2.5 MG, Albuterol Sulfate (0.083%) 2.5 MG 5 MG INHALE (13:39)
--- OUTSIDE RECORDS SUMMARY | 2025-09-20 13:39 | XMS_ITS | Clinical Summary ---
Author Organization [facility] Address [address] [place] [phone] Phone Care Team Providers Care Crating And Moving Estimator Name Role Phone Unavailable Primary Care Provider [...]
--- OUTSIDE RECORDS SUMMARY | 2025-09-20 13:39 | XMS_ITS | Encounter Summary ---
Author Organization [facility] Address [address] [place] [phone] Phone Care Team Providers Care Transitional Care Manager Name Role Phone Toño Lancaster MD Primary Care Provider [phone] Encounter Details Date Type Department Care Team (Late st Contact Info) Description 09/24/2013 Documentation EM Family Medicine [address] [place] [address] Family Medicine, Physician [address] [place], [place] [id number] Social History Tobacco Use Types Packs/Day Years [...] on filedocumented in this encounter Care Teams Transitional Care Manager Relationship Specialty Start Date End Date Toño Lancaster MD [address] [place] [id number] PCP - General 05/27/17 03/23/23 documented as of this encounter
--- OUTSIDE RECORDS SUMMARY | 2025-09-20 13:39 | XMS_ITS | Clinical Summary ---
Author Organization [employer] Address [address] [place] [address] Care Team Providers Care Clock Repair Technician Name Role Phone Krys Barksdale MD Primary Care Provider + Allergies No known active allergies Medications albuterol 1.25 MG/3ML nebulizer solution Take 3 mL (1.25 mg) by nebulization every 6 (six) hours if needed for wheezing. 75 mL 3 5 5:35 PM EST 06/20/20 25 026 Active Blood Pressure Monitoring (Blood Pressure Cuff) [facility] [place] Use daily as prescribed 1 each 06/20/20 25 Active fluticasone (Flonase) 50 MCG/ACT nasal spray Administer 1 spray into each nostril Once per day. 16 g 06/20/20 25 Active losartan (Cozaar) 25 MG tablet Take 1 tablet (25 mg) by mouth Once per day. 90 tablet 1 5 5:35 PM EST 08/01/20 25 026 Active budesonide-for moterol (Symbicort) 80-4.5 MCG/ACT inhaler Inhale 2 puffs in the morning and at bedtime. Rinse mouth with water after use to reduce aftertaste and incidence of candidiasis. Do not swallow. 1 each 11 08/01/20 25 026 Active nicotine polacrilex (Nicorette) 4 MG gum Chew 1 each (4 mg) if needed for smoking cessation. 100 each 08/01/20 25 Active Ventolin HFA 108 (90 Base) MCG/ACT inhaler Inhale 2 puffs every 6 (six) hours if needed for wheezing. 18 g 09/10/20 25 Active albuterol 108 (90 Base) MCG/ACT inhaler Inhale 2 puffs every 6 (six) hours if needed for wheezing. 18 g 06/20/20 25 025 Discontinued Active Problems Problem Noted Date Diagnosed Date Elevated blood pressure reading 09/14/2025 Assessment & Plan (09/14/2025 7:04 PM EST): No history hypertension, unclear if related to cocaine use? Smoking? Advised to quit smoking, cut down cocaine use to off. Counseled re low salt diet/increase moderate physical activity. Check home BP BIW and prn CP/THOMAS/GOMES FU in 1mo Obesity due to excess calories with serious rico rbidity 09/14/2025 Possible exposure to STD 09/14/2025 Assessment & Plan (09/14/2025 7:06 PM EST): Counseled re use of condom at al times Will test for STDs Class 3 severe obesity due t o excess calories with serious comorbidity and body mass index (BMI) of 45.0 to 49.9 in adult 08/01/2025 Assessment & Plan (09/14/2025 7:05 PM EST): Discussed re weight reduction options including exercise, life style modifications, diet. Recommended to decrease soda and sugary beverage consumption, increase protein intake with meals (at least 1 portion of protein with each meal) to assist with satiety, increase dietary fiber Recommended at least 150 min/week of moderate intensity exercise. Not interested on shock absorption floor layer referral Assessment & Plan (08/01/2025 3:18 PM EDT): Discussed re weight reduction options including exercise, life style modifications, diet. Recommended to decrease soda and sugary beverage consumption, increase protein intake with meals (at least 1 portion of protein with each meal) to assist with satiety, increase dietary fiber Recommended at least 150 min/week of moderate intensity exercise. Will be able candidate for medications, not interested on taking medications at this time. Will follow-up at next visit Primary hypertension 08/01/2025 Assessment & Plan (08/01/2025 3:20 PM EDT): New onset hypertension, reminded to get labs done prior to next visit Start losartan 25 mg/day and follow-up with RN Counseled re low salt diet/increase moderate physical activity. Check home BP BIW and prn CP/THOMAS/GOMES Counseled to quit smoking. Follow-up with me in 2 or 3 months Follow up with the Nurse for blood pressure check in 3 weeks. Continue with a low sodium diet and regular exercise as tolerated. For BP < or = to 139/89 (or 129/79 for diabetic patients) continue current medication regimen and follow up with PCP in 8 weeks. For BP > or = to 140/90 (or 130/80 for diabetic patients) increase Losartan to 50 mg once a day Follow up with the Nurse for a second blood pressure check in 2-4 weeks if BP 140-150/90+ (or 130-150/80+ for diabetic patients). Refer to CDTM for BP >150/90+. If second Nurse visit is needed: For BP < or = to 139/89 (or 129/79 for diabetic patients) continue current medication regimen and follow up with the PCP in 8 weeks. For BP > or = to 140/90 (or 130/80 for diabetic patients) increase Hydrochlorothiazide to 12.5 mg once a day Follow up with the PCP in 4 weeks. Moderate persistent asthma without complication 08/01/2025 Assessment & Plan (09/14/2025 7:09 PM EST): Cordell fink now Advised to quit smoking, declined nicotine replacement prescription at this time Order PFTs Use albuterol prn only for now, FU in 1mo Assessment & Plan (08/01/2025 3:18 PM EDT): Uncontrolled, switch to Symbicort twice daily + every 4 hours as needed shortness of breath Advised regarding quitting smoking and lose weight Advised to have PFTs done prior to next appointment Cigarette smoker 08/01/2025 Assessment & Plan (09/14/2025 7:09 PM EST): Counseled to quit smoking,declined nicotine replacement rx Assessment & Plan (08/01/2025 3:19 PM EDT): Counseled to quit smoking, Rx nicotine gum to use as needed and follow-up at next visit Encounters Date Type Department Care Team Description 09/20/2025 Orders Only [facility] External Provider, [facility] 09/09/2025 Refill [facility] MEDICINE [address] [place] [phone] Krys Barksdale MD 08/01/2025 11:30 AM EDT Office Visit [address] [address] Krys Barksdale MD Primary hypertension (Primary Dx); Class 3 severe obesity due to excess calories with serious comorbidity and body mass index (BMI) of 45.0 to 49.9 in adult (HCC); Moderate persistent asthma without complication; Cigarette smoker 08/01/2025 Travel 07/31/[address] [address] Krys Barksdale MD PFT & Labs 07/31/[address] [address] Krys Barksdale MD CHART PREP 07/31/2025 Orders Only [address] [address] [place] 06/21/2025 Telephone [facility] CHC MED & PEDS [address] [place], [place] [phone] Krys Barksdale MD from Last 3 Months Immunizations Immunization Administration [...] uit: Not Asked; Counseling Given: Not Answered Comments:Pt states he's cut back on cigarettes 1-2 cigs per day Alcohol Use Standard Drinks/Week Comments Yes 15 (1 standard drink = 0.6 oz pu re alcohol) Alcohol Answer Date Recorded Q1: How often do you have a drink containing alc ohol? 5 08/01/2025 Q2: How many drinks containi ng alcohol do you have on a typical day when you are drinking? 2 08/01/2025 Q3: How often do you have six or more drinks on one occasion? 4 08/01/2025 Depression Answer Date Recorded Patient Health Questionnaire-9 Score 10 06/20/2025 Patient Health Questionnaire-9 Score 10 06/20/2025 Last PHQ-9: Questionnaire Data Not on file 0 06/20/2025 Housing Stability Answer Date Recorded What is your housing situation today? I do not have housing (Staying with others, in a hotel, in a intermediate, living outside on the street, on a [...] Sign Reading Time Taken Comments Blood Pressure 160/105 08/01/2025 12:09 PM EDT Pulse 87 08/01/2025 11:56 AM EDT Temperature 36.8 C (98.2 F) 08/01/2025 11:56 AM EDT Respiratory Rate 16 08/01/2025 11:56 AM EDT Oxygen Saturation 97% 08/01/2025 11:56 AM EDT Inhaled Oxygen Concentration - - Weight 157 kg (347 lb 3.2 oz) 08/01/2025 11:56 A M EDT Height 182.2 cm (5' 11.75 ) 08/01/2025 11:56 AM EDT Body Mass Index 47.42 08/01/2025 11:56 AM EDT Plan of Treatment Upcoming Encounters Date Type Department Care Team (Late st Contact Info) Description 10/04/2025 12:15 PM EST Office Visit [facility] MEDICINE [address] [place] [address] Krys Barksdale MD [address] [place] [address] 11/29/2025 9:00 AM EST Office Visit [facility] OPTOMETRY [address] [place] [address] Swetha Buchanan, OD [address] [place] [address] Health Maintenance Due Date Last Done Comments [...] 03/15/1997, Additional history exists COVID-19 Vaccine ( - season) 2025 Influenza Vaccine (#1) 2025 11/25/2004 Depression Monitoring 12/18/2025 06/20/2025, 025 Alcohol/Substance Use Screening 06/20/2026 06/20/2025 Disability Screening 06/20/2026 06/20/2025 SDOH Screening 06/20/2026 06/20/2025 Tobacco Screening 08/01/2026 08/01/2025 Dental X-Ray: Full Mouth 05/03/2028 05/02/2025 Zoster [...] Procedure Name Priority Date/Time Associated Diagnosis Comments HIGH SENSITIVITY TROPONIN I Routine 09/20/2025 12:[address] ABDOMEN PELVIS W CONTRAST Routine 09/20/2025 12:03 PM EST LACTIC ACID Routine 09/20/2025 11:27 AM EST LIPASE Routine 09/20/2025 9:47 AM EST HIGH SENSITIVITY TROPONIN I Routine 09/20/2025 9:47 AM EST MAGNESIUM Routine 09/20/2025 9:47 AM EST COMPREHENSIVE METABOLIC PANEL Routine 09/20/2025 9:47 AM EST PROTHROMBIN TIME-INR Routine 09/20/2025 9:47 AM EST CBC WITH AUTO DIFFERENTIAL Routine 09/20/2025 9:47 AM EST SARS COV2/INFLUENZA A/B AND RSV RNA QL NAAT Routine 09/20/2025 9:47 AM EST XR CHEST 2 VIEWS Routine 09/20/2025 9:33 AM EST PANORAMIC RADIOGRAPHIC IMAGE Routine 05/02/2025 11:30 AM EDT from Last 3 Months or Most Recently Relevant to Health Maintenance Results * High Sensitivity Troponin I (09/20/2025 12:19 PM EST) Only the most recent of2 resultswithin the time period is included. TROPONIN I HIGH SENSITIVITY 5.5 <3.5 - 35.0 ng/L [facility] Comment:The Serrano high sens itivity Troponin-I results should beused in conjunction with other diagnostic information suchas ECG, clinical observations and information, and patientsymptoms to aid in the diagnosis of [place]. 09/20/2025 12:1 9 PM EST 09/20/2025 12:22 PM EST us Generic External Data Provider LAB BLOOD ORDERAB LES Final Result [facility] [address] [place] [phone] * CT Abdomen Pelvis w/ Contrast (09/20/2025 12:03 PM EST) Anatomical Region Laterality Modality Body, Pelvis, Abdomen Computed T omography 09/20/2025 12:0 3 PM EST Narrative 09/20/2025 12:47 PM EST [address] [address] [address] Scan Report Signed Patient: Pravin Ferrera MR#: [id number] : 1995 Acct:[id number] Age/Sex: 30 / M ADM Date: 09/20/25 Loc: HO.ED Attending Dr: Ordering Physician: Mehnaz Stuart Date of Service: 09/20/25 Procedure(s): CT abdomen pelvis w IV con Accession Number(s): [id number] cc: [facility]; Mehnaz Stuart Report Number: [id number]: Total DLP = 1151.00 mGy-cm Reason for Exam: LLQ abd pain EXAMINATION: CT ABDOMEN AND PELVIS WITH CONTRAST CLINICAL INFORMATION: [Left lower quadrant abdominal pain COMPARISON: Correlation with CT chest 05/20/2025 TECHNIQUE: Multidetector volumetric images were obtained from the superior aspect of the liver through the pubic symphysis following administration 85 mL of Omnipaque 350 intravenous contrast. Sagittal and coronal reformatted images were obtained on the technologist's workstation. Oral contrast: No This CT examination was performed using dose optimization techniques as appropriate, variously including the following: *Automated exposure control *Adjustment of mA and/or kV according to patient size (this includes techniques or standardized protocols for targeted exams where dose is matched to indication/reason for exam; i.e. extremities or head) *Use of iterative reconstruction technique FINDINGS: LUNG BASES: Marked bronchiectasis in the visualized right middle lobe and moderate bronchiectasis in bilateral lower lobes, similar to previous. Nodular opacities in bilateral lower lobes, slightly more prominent as compared to previous, likely secondary to inflammatory/infectious process.. LIVER, GALLBLADDER, AND BILIARY TREE: Hepatomegaly. Right lobe measures 20 cm craniocaudal. No liver lesion seen.. No intrahepatic biliary duct dilatation. Gallstone present. No gallbladder wall thickening, or obvious pericholecystic inflammatory changes. PANCREAS: Unremarkable. No acute inflammatory changes. SPLEEN: Unremarkable. ADRENAL GLANDS: Unremarkable. KIDNEYS AND URETERS: No suspicious renal lesions. No renal or ureteral calculi. No hydronephrosis. BLADDER: Unremarkable. GASTROINTESTINAL TRACT: Stomach is partially distended. No dilated small or large bowel loops. Small-moderate volume stool in the large colon. Portion of the colon is nondistended. No pericolonic inflammatory changes seen. Appendix appears unremarkable. ABDOMINAL WALL: Small fat-containing left inguinal hernia. Small fat-containing umbilical hernia. Small supraumbilical fat-containing hernia. LYMPH NODES: No pathologically enlarged lymph nodes are seen. VASCULAR: Normal caliber aorta. PELVIC VISCERA: Prostate measures 4 cm transverse. OSSEOUS STRUCTURES: No acute or suspicious osseous abnormality. CT/CT abdomen pelvis w IV con IMPRESSION: * No acute intra-abdominal findings identified. Cause of the patient's symptoms has not been determined. * Small-moderate volume stool in the large colon. * Marked bronchiectasis in the right middle lobe and bilateral lower lobes, similar to the prior chest CT. Nodular opacities in bilateral lower lobes, slightly more prominent as compared to this. This likely secondary to inflammatory/infectious process. Follow-up imaging as indicated. * Hepatomegaly. *Gallstone. No CT findings suggest acute cholecystitis. Clinically correlate. Ultrasound evaluation as clinically indicated. *Small, fat-containing, umbilical and left inguinal hernia. Fleischner guidelines were followed. Electronically signed by: Sidney Herzog MD 09/20/2025 12:44 PM [facility] Dictated By: Sidney Herzog MD Signed By: <Electronically signed by Sidney Herzog MD in OV> 09/20/25 1244 DD/ 1203 TD/TT: 09/20/25 1226 Locomotive Inspector: SAMANTHA Procedure Note Donotuseinterpreter, Image - 09/20/[address] [address] [address] Scan Report Signed Patient: Dharmesh Ferrera#: [id number] : 1995Acct:[id number] Age/Sex: 30 / MADM Date: 09/20/25 Loc: HO.ED Attending Dr: Ordering Physician: Mehnaz Stuart Date of Service: 09/20/25 Procedure(s): CT abdomen pelvis w IV con Accession Number(s): [id number] cc: [facility]; Mehnaz Stuart Report Number: [id number]: Total DLP = 1151.00 mGy-cm Reason for Exam: LLQ abd pain EXAMINATION: CT ABDOMEN AND PELVIS WITH CONTRAST CLINICAL INFORMATION: [Left lower quadrant abdominal pain COMPARISON: Correlation with CT chest 05/20/2025 TECHNIQUE: Multidetector volumetric images were obtained from the superior aspect of the liver through the pubic symphysis following administration 85 mL of Omnipaque 350 intravenous contrast. Sagittal and coronal reformatted images were obtained on the technologist's workstation. Oral contrast: No This CT examination was performed using dose optimization techniques as appropriate, variously including the following: *Automated exposure control *Adjustment of mA and/or kV according to patient size (this includes techniques or standardized protocols for targeted exams where dose is matched to indication/reason for exam; i.e. extremities or head) *Use of iterative reconstruction technique FINDINGS: LUNG BASES: Marked bronchiectasis in the visualized right middle lobe and moderate bronchiectasis in bilateral lower lobes, similar to previous. Nodular opacities in bilateral lower lobes, slightly more prominent as compared to previous, likely secondary to inflammatory/infectious process.. LIVER, GALLBLADDER, AND BILIARY TREE: Hepatomegaly. Right lobe measures 20 cm craniocaudal. No liver lesion seen.. No intrahepatic biliary duct dilatation. Gallstone present. No gallbladder wall thickening, or obvious pericholecystic inflammatory changes. PANCREAS: Unremarkable. No acute inflammatory changes. SPLEEN: Unremarkable. ADRENAL GLANDS: Unremarkable. KIDNEYS AND URETERS: No suspicious renal lesions. No renal or ureteral calculi. No hydronephrosis. BLADDER: Unremarkable. GASTROINTESTINAL TRACT: Stomach is partially distended. No dilated small or large bowel loops. Small-moderate volume stool in the large colon. Portion of the colon is nondistended. No pericolonic inflammatory changes seen. Appendix appears unremarkable. ABDOMINAL WALL: Small fat-containing left inguinal hernia. Small fat-containing umbilical hernia. Small supraumbilical fat-containing hernia. LYMPH NODES: No pathologically enlarged lymph nodes are seen. VASCULAR: Normal caliber aorta. PELVIC VISCERA: Prostate measures 4 cm transverse. OSSEOUS STRUCTURES: No acute or suspicious osseous abnormality. CT/CT abdomen pelvis w IV con IMPRESSION: * No acute intra-abdominal findings identified. Cause of the patient's symptoms has not been determined. * Small-moderate volume stool in the large colon. * Marked bronchiectasis in the right middle lobe and bilateral lower lobes, similar to the prior chest CT. Nodular opacities in bilateral lower lobes, slightly more prominent as compared to this. This likely secondary to inflammatory/infectious process. Follow-up imaging as indicated. * Hepatomegaly. *Gallstone. No CT findings suggest acute cholecystitis. Clinically correlate. Ultrasound evaluation as clinically indicated. *Small, fat-containing, umbilical and left inguinal hernia. Fleischner guidelines were followed. Electronically signed by: Sidney Herzog MD 09/20/2025 12:44 PM EST Dictated By: Sidney Herzog MD Signed By: <Electronically signed by Sidney Herzog MD in OV> 09/20/25 1244 DD/ 1203 TD/TT: 09/20/25 1226 Locomotive Inspector: SAMANTHA [facility] External Provider IMG CT PROCEDURES Final Result * Lactic Acid (09/20/2025 11:27 AM EST) Pathologist [facility] Lactic Acid 0.8 0.5 - 2.0 mmol/L [facility] 09/20/2025 11:2 7 AM EST 09/20/2025 11:31 AM EST Generic External Data Provider LAB BLOOD ORDERAB LES Final Result [facility] [address] [place] [phone] * SARS-CoV-2 RNA, Influenza A/B, and RSV RNA, Ql NAAT (09/20/2025 9:47 AM EST) Pathologist [facility] Influenza A PCR NEGATIVE Negative [facility] Influenza B PCR NEGATIVE Negative [facility] Resp Syncy Virus RNA Qual PCR NEGATIVE Negative [facility] SARS COV2 PCR NEGATIVE Negative [facility] Comment:All test results mus t be correlated with clinical findings.Negative results do not preclude SARS-CoV2, influenza Avirus, influenza B virus and/or RSV infectionand should not be used as the sole basis for treatment orother patient management decisions. Negative results must becombined with clinical observations, patient history, andepidemiological information.This test has not been evaluated for monitoring treatment ofinfection.This test has been authorized by the FDA under an EmergencyUse Authorization (EUA) for use by authorized laboratories.Testing performed on the [employer] GeneXpert utilizingreal-time RT-PCR.All SARS CoV2 and positive influenza A/B results arereported to [facility]. 09/20/2025 9:47 AM EST 09/20/2025 9:50 AM EST us Generic External Data Provider LAB MICROBIOLOGY - GENERAL ORDERABLES Final Result [facility] [address] [place] [phone] * (ABNORMAL) CBC auto differential (09/20/2025 9:47 AM EST) White Blood Count 13.3(H) 4.8 - 10.8 X10*3/uL [facility] Red Blood Count 4.91 4.60 - 5.80 X10*6/uL [facility] Hemoglobin 13.0(L) 14.0 - 18.0 g/dl [facility] Hematocrit 40.9(L) 42.0 - 52.0 % [facility] Mean Corpuscular Volume 83.3 80.0 - 98.0 fL [facility] Mean Corpuscular Hemoglobin 26.5(L) 27.0 - 33.0 pg [facility] Mean Corpuscular HGB Conc 31.8 31.0 - 36.0 g/dl [facility] Red Cell Distribution Width 13.2 11.0 - 16.0 % [facility] Platelet Count 385 160 - 400 X10*3/uL [facility] Mean Platelet Volume 8.7(L) 9.4 - 12.4 fL [facility] Neutrophils Percent Auto 75.7(H) 45 - 73 % [facility] Imm Gran Pct Auto 0.4 0.0 - 0.4 % [facility] Lymphocytes Percent Auto 11.7(L) 20 - 40 % [facility] Monocytes Percent Auto 10.5 2 - 11 % [facility] Eosinophils Percent Auto 1.2 0 - 4 % [facility] Basophils Percent Auto 0.5 0 - 2 % [facility] NRBC Pct Auto 0.0 0.0 - 0.2 /100WBC [facility] Neutrophils Absolute Auto 10.0(H) 2.0 - 8.3 x10*3/uL [facility] Imm Gran Abs Auto 0.05(H) 0.00 - 0.03 X10*3/uL [facility] Lymphocytes Absolute Auto 1.6 1.2 - 4.9 X10*3/uL [facility] Monocytes Absolute Auto 1.4(H) 0.1 - 1.2 X10*3/uL [facility] Eosinophils Absolute Auto 0.2 0.0 - 0.4 X10*3/uL [facility] Basophils Absolute Auto 0.1 0.0 - 0.2 X10*3/uL [facility] NRBC Abs Auto 0.000 0.0 - 0.012 X10*3/uL [facility] 09/20/2025 9:47 AM EST 09/20/2025 9:50 AM EST us Generic External Data Provider LAB BLOOD ORDERAB LES Final Result [facility] [address] [place] [phone] * (ABNORMAL) Prothrombin Time-INR (09/20/2025 9:47 AM EST) Prothrombin Time 14.4(H) 11.2 - 13.5 SEC [facility] INTERNATIONAL NORM RATIO 1.2(H) 0.9 - 1.1 [facility] Comment:INTERNATIONAL NORMAL IZED RATIO (INR) REFERENCE RANGES Reference RangeFor patients not on anticoagulant therapy: 0.9 - 1.1INR ranges for oral anticoagulanttherapy:For prevention and treatment of venous thrombosis and pulmonary embolism: 2.0 - 3.0For acute myocardial infarction with aspirin therapy: 2.0 - 3.0For acute myocardial infarction without aspirin therapy: 3.0 - 4.0For patients with mechanical prosthetic heart valves: 2.5 - 3.5 09/20/2025 9:47 AM EST 09/20/2025 9:50 AM EST Generic External Data Provider LAB BLOOD ORDERAB LES Final Result Performing Organization Address [facility] [address]/[facility] Co de Phone Number [facility] [address] [place] [phone] * Magnesium (09/20/2025 9:47 AM EST) Magnesium 2.0 1.6 - 2.6 mg/dL [facility] 09/20/2025 9:47 AM EST 09/20/2025 9:50 AM EST Generic External Data Provider LAB BLOOD ORDERAB LES Final Result Performing Organization Address [facility] de Phone Number [facility] [address] [place] [phone] * Lipase (09/20/2025 9:47 AM EST) Lipase 13 8 - 78 U/L [facility] 09/20/2025 9:47 AM EST 09/20/2025 9:50 AM EST Generic External Data Provider LAB BLOOD ORDERAB LES Final Result Performing Organization Address [facility] Co de Phone Number [facility] [address] [place] [phone] * (ABNORMAL) Comprehensive Metabolic Panel (09/20/2025 9:47 AM EST) Sodium 139 135 - 145 mmol/L [facility] Potassium 4.0 3.3 - 5.1 mmol/L [facility] Chloride 102 96 - 108 mmol/L [facility] Carbon Dioxide 28 22 - 29 mmol/L [facility] Anion Gap 13 12 - 20 [facility] Urea Nitrogen (BUN) 8(L) 9 - 16 mg/dL [facility] Creatinine, Serum 0.72 0.5 - 1.4 mg/dL [facility] Creatinine Clr Calc Pharmacy 213.1 [facility] Comment:eGFR (calculated fro m the MDRD study equation) and eCrCl(calculated from the Cockcroft-Gault equation) are based ondifferent parameters and may not yield comparable results.If eCrCl result is absurd, please check patient'sheight/weight. Estimated Glomerular Filt Rate >60 [facility] Comment:Chronic Kidney Disea se: Estimated GFR < 60 mL/min/1.79z5Excogl Kidney Disease: Estimated GFR < 15 mL/min/1.73m2 Glucose 101 60 - 115 mg/dL [facility] Calcium 9.4 8.4 - 10.2 mg/dL [facility] Bilirubin, Total 0.5 0.0 - 1.0 mg/dL [facility] Aspartate Amino Transferase 18 5 - 37 U/L [facility] Alanine Aminotransferase 21 0 - 40 U/L [facility] Total Protein 8.7(H) 6.5 - 8.0 g/dL [facility] Albumin Level 4.3 3.5 - 5.0 g/dL [facility] Alkaline Phosphatase 98 39 - 117 U/L [facility] 09/20/2025 9:47 AM EST 09/20/2025 9:50 AM EST us Generic External Data Provider LAB BLOOD ORDERAB LES Final Result [facility] [address] [place] [phone] * XR Chest 2 Views (09/20/2025 9:33 AM EST) Anatomical Region Laterality Modality Chest Radiographic Shefali ging 09/20/2025 9:33 AM EST Narrative 09/20/2025 9:48 AM EST [address] [address] XRay Report Signed Patient: Pravin Ferrera MR#: [id number] : 1995 Acct:[id number] Age/Sex: 30 / M ADM Date: 09/20/25 Loc: HO.ED Attending Dr: Ordering Physician: Generic ED Physician Date of Service: 09/20/25 Procedure(s): XR chest 2V Accession Number(s): [id number] cc: Generic ED Physician; [facility] Reason for Exam: sob EXAMINATION: XR CHEST CLINICAL INFORMATION: sob COMPARISON: May 22, 2025 x-ray and CT from May 20, 2025 TECHNIQUE: 2 views of the chest were obtained. FINDINGS: On prior CT, patient demonstrates cystic bronchiectasis with peribronchial thickening in the right middle lobe accounting for patchy increased density with cystic lucencies in the right middle lobe on the current x-ray. There are increased streaky markings in the retrocardiac medial left lung base. An azygos fissure is incidentally noted. There is no pneumothorax. There is no pleural effusion. XR/XR chest 2V IMPRESSION: Cystic bronchiectasis in right middle lobe. Minimally increased streaky opacity in the retrocardiac region probably represents atelectasis, pneumonia is not ruled out. Electronically signed by: Placido Leach MD 09/20/2025 09:45 AM EST RP Dictated By: Placido Leach MD Signed By: <Electronically signed by Placido Leach MD in OV> 09/20/2545 DD/ 2 TD/TT: 09/20/25929 Locomotive Inspector: Procedure Note Donotuseinterpreter, Image - 09/20/2025 [facility] [address] [place] [address] XRay Report Signed Patient: Dharmesh Ferrera#: [id number] : 1995Acct:[id number] Age/Sex: 30 / MADM Date: 09/20/25 Loc: HO.ED Attending Dr: Ordering Physician: Generic ED Physician Date of Service: 09/20/25 Procedure(s): XR chest 2V Accession Number(s): [id number] cc: Generic ED Physician; [facility] Reason for Exam: sob EXAMINATION: XR CHEST CLINICAL INFORMATION: sob COMPARISON: May 22, 2025 x-ray and CT from May 20, 2025 TECHNIQUE: 2 views of the chest were obtained. FINDINGS: On prior CT, patient demonstrates cystic bronchiectasis with peribronchial thickening in the right middle lobe accounting for patchy increased density with cystic lucencies in the right middle lobe on the current x-ray. There are increased streaky markings in the retrocardiac medial left lung base. An azygos fissure is incidentally noted. There is no pneumothorax. There is no pleural effusion. XR/XR chest 2V IMPRESSION: Cystic bronchiectasis in right middle lobe. Minimally increased streaky opacity in the retrocardiac region probably represents atelectasis, pneumonia is not ruled out. Electronically signed by: Placido Leach MD 09/20/2025 09:45 AM [facility] Dictated By: Placido Leach MD Signed By: <Electronically signed by Placido Leach MD in OV> 09/20/2545 DD/ 2 TD/TT: 09/20/25 09 Locomotive Inspector: [facility] External Provider IMG XR PROCEDURES Edited Result - Final from Last 3 Months Insurance [facility] C3 DENTAL-[facility] MEDICAID STAND ADULT Care Teams Clock Repair Technician Relationship Specialty Start Date End Date Krys Barksdale MD [address] [place] [address] PCP - General Internal Medicine 06/20/25
--- OUTSIDE RECORDS SUMMARY | 2025-09-20 13:39 | XMS_ITS | Encounter Summary ---
Author Organization [employer] Address [address] [place] [address] Care Team Providers Care Cathode Washer Name Role Phone Krys Barksdale MD Primary Care Provider + Encounter Details Date Type Department Care Team (Late st Contact Info) Description 09/20/2025 Orders Only [facility] External Provider, [facility] Social History Tobacco Use Types Packs/Day Years Used Date Smoking Tobacco: Every Day Cigarettes Passive Smoke Exposure: Current Smokeless Tobacco: Never Comments:Pt states he's cut back on cigarettes [...] with others, in a hotel, in a fci, living outside on the street, on a [...] Orientation Straight 05/02/2025 8: 50 AM EDT documented as of this encounter Plan of Treatment Upcoming Encounters Date Type Department Care Team (Late st Contact Info) Description 10/04/2025 12:15 PM EST Office Visit [facility] MEDICINE [address] [place] [address] Krys Barksdale MD [address] [place] [address] 11/29/2025 9:00 AM EST Office Visit [facility] OPTOMETRY [address] [place] [address] Swetha Buchanan, OD [address] [place] [address] documented as of this encounter Procedures Procedure Name Priority Date/Time Associated Diagnosis Comments HIGH SENSITIVITY TROPONIN I Routine 09/20/2025 12:[address] ABDOMEN PELVIS W CONTRAST Routine 09/20/2025 12:03 PM EST LACTIC ACID Routine 09/20/2025 11:27 AM EST HIGH SENSITIVITY TROPONIN I Routine 09/20/2025 9:47 AM EST SARS COV2/INFLUENZA A/B AND RSV RNA QL NAAT Routine 09/20/2025 9:47 AM EST CBC WITH AUTO DIFFERENTIAL Routine 09/20/2025 9:47 AM EST PROTHROMBIN TIME-INR Routine 09/20/2025 9:47 AM EST MAGNESIUM Routine 09/20/2025 9:47 AM EST LIPASE Routine 09/20/2025 9:47 AM EST COMPREHENSIVE METABOLIC PANEL Routine 09/20/2025 9:47 AM EST XR CHEST 2 VIEWS Routine 09/20/2025 9:33 AM EST documented in this encounter Results * High Sensitivity Troponin I (09/20/2025 12:19 PM EST) Pathologist [facility] TROPONIN I HIGH SENSITIVITY 5.5 <3.5 - 35.0 ng/L [facility] Comment:The Serrano high sens itivity Troponin-I results should beused in conjunction with other diagnostic information suchas ECG, clinical observations and information, and patientsymptoms to aid in the diagnosis of OR. 09/20/2025 12:1 9 PM EST 09/20/2025 12:22 PM EST us Generic External Data Provider LAB BLOOD ORDERAB LES Final Result [facility] [address] [place] [phone] * CT Abdomen Pelvis w/ Contrast (09/20/2025 12:03 PM EST) Anatomical Region Laterality Modality Body, Pelvis, Abdomen Computed T omography 09/20/2025 12:0 3 PM EST Narrative 09/20/2025 12:[address] [address] [address] Scan Report Signed Patient: Pravin Ferrera MR#: [id number] : 1995 Acct:[id number] Age/Sex: 30 / M ADM Date: 09/20/25 Loc: HO.ED Attending Dr: Ordering Physician: Mehnaz Stuart Date of Service: 09/20/25 Procedure(s): CT abdomen pelvis w IV con Accession Number(s): [id number] cc: [facility]; Mehnaz Stuart Report Number: [id number]: Total DLP = 1151.00 mGy-cm Reason for [...] by: Sidney Herzog MD 09/20/2025 12:44 PM [facility] Dictated By: Sidney Herzog MD Signed By: <Electronically signed by Sidney Herzog MD in OV> 09/20/25 1244 DD/ 1203 TD/TT: 09/20/25 1226 Health And Wellness Coach: Procedure Note Donotuseinterpreter, Image - 09/20/[address] [place] [address] [address] Scan Report Signed Patient: Dharmesh Ferrera#: [id number] : 1995Acct:[id number] Age/Sex: 30 / MADM Date: 09/20/25 Loc: HO.ED Attending Dr: Ordering Physician: Mehnaz Stuart Date of Service: 09/20/25 Procedure(s): CT abdomen pelvis w IV con Accession Number(s): [id number] cc: [facility]; Mehnaz Stuart Report Number: [id number]: Total DLP = 1151.00 mGy-cm Reason for [...] 09/20/25 1244 DD/ 1203 TD/TT: 09/20/25 1226 Health And Wellness Coach: SAMANTHA [facility] External Provider IMG CT PROCEDURES Final Result * Lactic Acid (09/20/2025 11:27 AM EST) Lactic Acid 0.8 0.5 - 2.0 mmol/L [facility] 09/20/2025 11:2 7 AM EST 09/20/2025 11:31 AM EST Generic External Data Provider LAB BLOOD ORDERAB LES Final Result Performing Organization Address [facility] Co de Phone Number [facility] [address] [place] [phone] * Lipase (09/20/2025 9:47 AM EST) Lipase 13 8 - 78 U/L [facility] 09/20/2025 9:47 AM EST 09/20/2025 9:50 AM EST Generic External Data Provider LAB BLOOD ORDERAB LES Final Result Performing Organization Address [facility] Co de Phone Number [facility] [address] [place] [phone] * SARS-CoV-2 RNA, Influenza A/B, and RSV RNA, Ql NAAT (09/20/2025 9:47 AM EST) Influenza A PCR NEGATIVE Negative [facility] Influenza B PCR NEGATIVE Negative [facility] Resp Syncy Virus RNA Qual PCR NEGATIVE Negative [facility] SARS COV2 PCR NEGATIVE Negative [facility] Comment:All test results mus t [...] use by authorized laboratories.Testing performed on the [employer] GeneXpert utilizingreal-time RT-PCR.All SARS CoV2 and positive influenza A/B results arereported to [facility]. 09/20/2025 9:47 AM EST 09/20/2025 9:50 AM EST Generic External Data Provider LAB MICROBIOLOGY - GENERAL ORDERABLES Final Result Performing Organization Address [facility] de Phone Number [facility] [address] [place] [phone] * High Sensitivity Troponin I (09/20/2025 9:47 AM EST) Pathologist [facility] TROPONIN I HIGH SENSITIVITY 7.4 <3.5 - 35.0 ng/L [facility] Comment:The Serrano high sens itivity Troponin-I results should beused in conjunction with other diagnostic information suchas ECG, clinical observations and information, and patientsymptoms to aid in the diagnosis of OR. 09/20/2025 9:47 AM EST 09/20/2025 9:50 AM EST Generic External Data Provider LAB BLOOD ORDERAB LES Final Result Performing Organization Address [facility] Co de Phone Number [facility] [address] [place] [phone] [phone] * Magnesium (09/20/2025 9:47 AM EST) Magnesium 2.0 1.6 - 2.6 mg/dL [facility] 09/20/2025 9:47 AM EST 09/20/2025 9:50 AM EST us Generic External Data Provider LAB BLOOD ORDERAB LES Final Result [facility] [address] [place] [phone] * (ABNORMAL) Comprehensive Metabolic Panel (09/20/2025 9:47 AM EST) Sodium 139 135 - 145 mmol/L [facility] Potassium 4.0 3.3 - 5.1 mmol/L [facility] Chloride 102 96 - 108 mmol/L [facility] Carbon Dioxide 28 22 - 29 mmol/L [facility] Anion Gap 13 12 - 20 [facility] Urea Nitrogen (BUN) 8(L) 9 - 16 mg/dL [facility] Creatinine, Serum 0.72 0.5 - 1.4 mg/dL [facility] Creatinine Clr Calc Pharmacy 213.1 [facility] Comment:eGFR (calculated fro m the MDRD study equation) and eCrCl(calculated from the Cockcroft-Gault equation) are based ondifferent parameters and may not yield comparable results.If eCrCl result is absurd, please check patient'sheight/weight. Estimated Glomerular Filt Rate >60 [facility] Comment:Chronic Kidney Disea se: Estimated GFR < 60 mL/min/1.69w5Aksuql Kidney Disease: Estimated GFR < 15 mL/min/1.73m2 Glucose 101 60 - 115 mg/dL [facility] Calcium 9.4 8.4 - 10.2 mg/dL [facility] Bilirubin, Total 0.5 0.0 - 1.0 mg/dL [facility] Aspartate Amino Transferase 18 5 - 37 U/L [facility] Alanine Aminotransferase 21 0 - 40 U/L [facility] Total Protein 8.7(H) 6.5 - 8.0 g/dL [facility] Albumin Level 4.3 3.5 - 5.0 g/dL [facility] Alkaline Phosphatase 98 39 - 117 U/L [facility] 09/20/2025 9:47 AM EST 09/20/2025 9:50 AM EST Generic External Data Provider LAB BLOOD ORDERAB LES Final Result Performing Organization Address [facility] Co de Phone Number [facility] [address] [place] [phone] * (ABNORMAL) Prothrombin Time-INR (09/20/2025 9:47 AM EST) Prothrombin Time 14.4(H) 11.2 - 13.5 SEC [facility] INTERNATIONAL NORM RATIO 1.2(H) 0.9 - 1.1 [facility] Comment:INTERNATIONAL NORMAL IZED RATIO (INR) [...] LES Final Result Performing Organization Address [facility] Co de Phone Number [facility] [address] [place] [phone] * (ABNORMAL) CBC auto differential (09/20/2025 9:47 AM EST) White Blood Count 13.3(H) 4.8 - 10.8 X10*3/uL [facility] Red Blood Count 4.91 4.60 - 5.80 X10*6/uL [facility] Hemoglobin 13.0(L) 14.0 - 18.0 g/dl [facility] Hematocrit 40.9(L) 42.0 - 52.0 % [facility] Mean Corpuscular Volume 83.3 80.0 - 98.0 fL [facility] Mean Corpuscular Hemoglobin 26.5(L) 27.0 - 33.0 pg [facility] Mean Corpuscular HGB Conc 31.8 31.0 - 36.0 g/dl [facility] Red Cell Distribution Width 13.2 11.0 - 16.0 % [facility] Platelet Count 385 160 - 400 X10*3/uL [facility] Mean Platelet Volume 8.7(L) 9.4 - 12.4 fL [facility] Neutrophils Percent Auto 75.7(H) 45 - 73 % [facility] Imm Gran Pct Auto 0.4 0.0 - 0.4 % [facility] Lymphocytes Percent Auto 11.7(L) 20 - 40 % [facility] Monocytes Percent Auto 10.5 2 - 11 % [facility] Eosinophils Percent Auto 1.2 0 - 4 % [facility] Basophils Percent Auto 0.5 0 - 2 % [facility] NRBC Pct Auto 0.0 0.0 - 0.2 /100WBC [facility] Neutrophils Absolute Auto 10.0(H) 2.0 - 8.3 x10*3/uL [facility] Imm Gran Abs Auto 0.05(H) 0.00 - 0.03 X10*3/uL [facility] Lymphocytes Absolute Auto 1.6 1.2 - 4.9 X10*3/uL [facility] Monocytes Absolute Auto 1.4(H) 0.1 - 1.2 X10*3/uL [facility] Eosinophils Absolute Auto 0.2 0.0 - 0.4 X10*3/uL [facility] Basophils Absolute Auto 0.1 0.0 - 0.2 X10*3/uL [facility] NRBC Abs Auto 0.000 0.0 - 0.012 X10*3/uL [facility] 09/20/2025 9:47 AM EST 09/20/2025 9:50 AM EST us Generic External Data Provider LAB BLOOD ORDERAB LES Final Result Performing Organization Address City/State/[facility] Co de Phone Number [facility] [address] [place] [phone] * XR Chest 2 Views (09/20/2025 9:33 AM EST) Anatomical Region Laterality Modality Chest Radiographic Shefali ging 09/20/2025 9:33 AM EST Narrative 09/20/2025 9:48 AM EST [address] [address] XRay Report Signed Patient: Pravin Ferrera MR#: [id number] : 1995 Acct:[id number] Age/Sex: 30 / M ADM Date: 09/20/25 Loc: .ED Attending Dr: Ordering Physician: Generic ED Physician Date of Service: 09/20/25 Procedure(s): XR chest 2V Accession Number(s): [id number] cc: [facility] ED Physician; [facility] Reason for Exam: sob EXAMINATION: XR [...] in OV> 09/20/2545 DD/ 2 TD/TT: 09/20/25929 Health And Wellness Coach: Procedure Note Donotuseinterpreter, Image - 09/20/[address] [address] XRay Report Signed Patient: Dharmesh Ferrera#: [id number] : 1995Acct:[id number] Age/Sex: 30 / MADM Date: 09/20/25 Loc: .ED Attending Dr: Ordering Physician: Generic ED Physician Date of Service: 09/20/25 Procedure(s): XR chest 2V Accession Number(s): [id number] cc: Generic ED Physician; [facility] Reason for Exam: sob EXAMINATION: XR [...] signed by Placido Leach MD in OV> 09/20/25 0945 DD/ 2 TD/TT: 09/20/25929 Health And Wellness Coach: [facility] External Provider IMG XR PROCEDURES Edited Result - Final documented in this encounter Visit Diagnoses Not on filedocumented in this encounter Additional Health Concerns Assessment Noted Time PHQ-9 Depression Total Score: 10 025 9:33 AM EDT documented as of this encounter Care Teams Cathode Washer Relationship Specialty Start Date End Date Krys Barksdale MD [address] [place] [phone] PCP - General Internal Medicine 06/20/25 documented as of this encounter
--- OUTSIDE RECORDS SUMMARY | 2025-09-20 13:39 | XMS_ITS | Encounter Summary ---
Author Organization [facility] Address [address] [place] [phone] Phone Care Team Providers Care Slate Splitter Name Role Phone Toño Lancaster MD Primary Care Provider [phone] Encounter Details Date Type Department Care Team (Late st Contact Info) Description 05/10/2011 Documentation EM Family Medicine [address] [place] [address] Family Medicine, Physician [address] [place], [place] [phone] Social History Tobacco Use Types Packs/Day Years [...] on filedocumented in this encounter Care Teams Slate Splitter Relationship Specialty Start Date End Date Toño Lancaster MD [address] [place] [phone] PCP - General 05/27/17 03/23/23 documented as of this encounter
--- OUTSIDE RECORDS SUMMARY | 2025-09-20 13:39 | XMS_ITS | Encounter Summary ---
Author Organization [facility] Address [address] [place] [address] Phone Care Team Providers Care Open Hearth Door Liner Name Role Phone Toño Lancaster MD Primary Care Provider [phone] Encounter Details Date Type Department Care Team (Late st Contact Info) Description 06/02/2017 Conversion Encounter [facility] [address] [place] [address] Social History Tobacco Use Types Packs/Day Years [...] on filedocumented in this encounter Care Teams Open Hearth Door Liner Relationship Specialty Start Date End Date Toño Lancaster MD [address] [place] [address] PCP - General 05/27/17 03/23/23 documented as of this encounter
[2025-09-20 13:44] VITALS: PULSE 110; RESP 19; O2SAT 93
[2025-09-20 14:55] VITALS: BP 166/84; PULSE 95; RESP 16; TEMP 36.1; O2SAT 95
== END 2025-09-20 15:06 | disposition home or self-care (01) ==
PROVIDERS: Physician Assistant; Emergency Provider Emergency Medicine
DX: J18.9 Pneumonia, unspecified organism (principal); J45.901 Unspecified asthma with (acute) exacerbation; K59.00 Constipation, unspecified; R06.02 Shortness of breath; R10.22 Pelvic and perineal pain left side; R10.32 Left lower quadrant pain; F17.210 Nicotine dependence, cigarettes, uncomplicated; Z03.818 Encounter for observation for suspected exposure to other biological agents ruled out; Z79.899 Other long term (current) drug therapy
CPT/HCPCS: 36415; 71046; 74177; 80053; 83605; 83690; 83735; 84484; 85025; 85610; 87040; 87147; 87205; 87637; 94640; 96361; 96365; 96366; 96367; 96375; 99283; 99284; J0456; J0696; J2919; Q9967

== ENCOUNTER → 2025-09-20 09:33 | Outpatient (BNV) | payer MEDICAID, SELFPAY | PROVIDERS: Visit Provider Radiology Diagnostic Radiology | DX: K80.20 Calculus of gallbladder without cholecystitis without obstruction (principal); K44.9 Diaphragmatic hernia without obstruction or gangrene; K42.9 Umbilical hernia without obstruction or gangrene; R16.0 Hepatomegaly, not elsewhere classified; J47.9 Bronchiectasis, uncomplicated; R91.8 Other nonspecific abnormal finding of lung field | CPT/HCPCS: 71046; 74177 ==